=== PATIENT | female | born 1995 | race Caucasian/White ===

== ENCOUNTER 2017-03-03 00:39 | Emergency (ER) | payer OTHER, MEDICAID ==
[2017-03-03] MEDS ORDERED: NORMAL SALINE 1000 ML 1,000 ML IV PRN ×2 (00:48→02:33)
--- NOTE | 2017-03-03 00:50 | ER Document Report ---
ED Seizure - General Stated Complaint: PROBABLE SEIZURE Time seen by provider: 00:50 Mode of Arrival: Medic Information source: Parent - Mother, Emergency Med Personnel - HPI Patient complains to provider of: History of seizures Number of episodes: 1 Time of onset: unknown Duration: unknown Can details of seizure be obtained/verified: Yes Episode witnessed (by whom): Yes - mother, EMS Preceding symptoms/context: Missed dose of meds History of: V/P shunt, Other - Hyperthyroidism/thyrotoxicosis Character of seizure: Complete loss/conscious, Generalized shaking Post-ictal symptoms: Confusion, Speech difficulty Injuries: None Treatment ASSOCIATE SALES MANAGER: Valium Notes: Patient is a 21-year-old female with a history of cerebral palsy, seizure disorder, hypothyroidism with previous thyrotoxicosis, she was recently seen by her plastic extrusion operator and because her thyroid levels were showing her to be quite hypothyroid she was advised to stop taking her methimazole for approximately one week and then restarted at a much lower dose than she was previously on, today would be the day that she was to restart it, and she did take one 10 mg dose right before bedtime, mother last noted her to be acting normally at 9 PM, otherwise she's had a mild cough, no fevers, no vomiting or diarrhea, no other signs of any illness, at approximately 1145, mother states she heard a strange noise coming from patient's room and went into check on her, mother found her lying on the floor actively seizing, when EMS arrived to the house she was still actively seizing, they administered 4 mg of Versed and 4 mg of Valium and brought patient to the emergency room for evaluation, on arrival she was no longer seizing - Related Data Allergies/Adverse Reactions: No Known Allergies Allergy (Verified 02/20/15 03:40) Past Medical History - General Information source: Parent - Social History Smoking Status: Never Smoker Family History: Reviewed & Not Pertinent Neurological Medical History: Reports: Hx Seizures - Last seizure was in 2005 when she had a shunt revision Musculoskeltal Medical History: Reports Hx Muscle Spasm Past Surgical History: Reports: Hx Abdominal Surgery - bowl resection, Hx Bowel Surgery - Bowel resection for necrotizing enterocolitis, Hx Neurologic Surgery - 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, Hx Vascular Surgery - AV shunt with revision in - Immunizations Immunizations up to date: Yes Hx Diphtheria, Pertussis, Tetanus Vaccination: Yes Review of Systems - Review of Systems Constitutional: No symptoms reported EENT: No symptoms reported Cardiovascular: No symptoms reported Respiratory: Cough Gastrointestinal: No symptoms reported Genitourinary: No symptoms reported Female Genitourinary: No symptoms reported Musculoskeletal: No symptoms reported Skin: No symptoms reported Hematologic/Lymphatic: No symptoms reported Neurological/Psychological: Seizure -: Yes All other systems reviewed and negative Physical Exam - Vital signs Vitals: Temp 100.6 F H 03/03/17 00:40 Interpretation: Tachycardic, Febrile - General General appearance: Lethargic In distress: Moderate - HEENT Head: Normocephalic, Atraumatic Eyes: Normal Conjunctiva: Injected Eyelashes: Normal Pupils: PERRL Mucous membranes: Dry Pharynx: Normal Neck: Normal - Respiratory Respiratory status: No respiratory distress Chest status: Nontender Breath sounds: Normal Chest palpation: Normal - Cardiovascular Rhythm: Regular, Tachycardia Heart sounds: Normal auscultation Murmur: No - Abdominal Inspection: Normal, Healed incision Distension: Distended - Mild Bowel sounds: Normal Tenderness: Nontender Organomegaly: No organomegaly - Back Back: Normal - Extremities General upper extremity: Normal inspection, Nontender, Normal color, Normal ROM , Normal temperature General lower extremity: Normal inspection, Nontender, Normal color, Normal ROM , Normal temperature. No: Dorothy's sign - Neurological Neuro grossly intact: Yes Cognition: Confused Yolanda Coma Scale Eye Opening: To Voice [place] Coma Scale Verbal: Incomprehensible Yolanda Coma Scale Motor: Withdraws to Pain Yolanda Coma Scale Total: 9 - Skin Skin Temperature: Warm Skin Moisture: Dry Skin Color: Pale Course - Re-evaluation Re-evalutation: 03/03/17 02:52 Patient with evidence of thyrotoxicosis/possible thyroid storm, [facility] a request was made to speak to the on-call plastic extrusion operator 03:[address] Darling, who is familiar with patient, he does report that her recent labs showed her to be hypothyroid and he did recommend for her to stop taking the methimazole for 1 week, I did review patient's symptoms, presentation as well as lab values, he agrees that patient appears to be in thyroid storm and warrants transfer to [facility] for admission, he further recommends she receive another dose of 20 mg of methimazole, agrees with 0.5 mg of propanolol at this point in time, as well as every 4-6 hour dosing of propanolol as needed until transfer can be made, transfer center stated they will have the hospitalist callback to accept patient, Dr. Darling recommends against giving steroids at this point in time 03:45 Patient was discussed with [facility] hospitalist, Dr. Constantino, who accepts patient for transfer to PCU, transfer center reports they will call back when a bed is available - Vital Signs Vital signs: Temp Pulse Resp BP Pulse Ox 100.6 F H 42 H 108/70 92 03/03/17 00:40 03/03/17 04:31 03/03/17 04:31 03/03/17 04:31 - Laboratory Result Diagrams: 03/03/17 00:48 03/03/17 00:48 Laboratory results interpreted by me: 03/03/17 03/03/17 03/03/17 00:44 00:48 00:48 Sodium 147.7 H Potassium 3.4 L Chloride 108 H Creatinine 0.50 L Glucose 112 H POC Glucose 119 H AST 75 H ALT 45 H TSH < 0.02 L Free T3 pg/mL > 22.80 H - EKG Interpretation by Me EKG shows normal: Sinus rhythm Rate: Tachycardia Critical Care Note - Critical Care Note Total time excluding time spent on procedures (mins): 90 Comments: Patient arrived postictal, tachycardic, minimally responsive, requiring immediate intervention, evaluation shows patient to be in thyroid storm, with persistent tachycardia, requiring consultation with plastic extrusion operator and transfer to tertiary care center Discharge - Discharge Clinical Impression: Thyrotoxicosis with thyrotoxic crisis Qualifiers: Thyrotoxicosis type: unspecified thyrotoxicosis type Qualified Code(s): E05.91 - Thyrotoxicosis, unspecified with thyrotoxic crisis or storm Condition: Serious Disposition: [facility]
[2017-03-03 01:07] LABS: ABSOLUTE MONOCYTES (AUTO) 0.9 10^3/uL (0.1-1.4); ABSOLUTE NEUT (AUTO) 5.9 10^3/uL (1.7-8.2); BASOPHILS % (AUTO) 0.3 % (0-2); EOSINOPHILS % (AUTO) 0.2 % (0-6); HEMATOCRIT 39.9 % (36.0-47.0); HEMOGLOBIN 13.5 g/dL (12.0-15.5); HGB HCT DIFFERENCE 0.6; LYMPHOCYTES % (AUTO) 30.8 % (13-45); MEAN CORPUSCULAR HEMOGLOBIN 29.1 pg (27.0-33.4); MEAN CORPUSCULAR HGB CONC 33.8 g/dL (32.0-36.0); MEAN CORPUSCULAR VOLUME 86 fl (80-97); RED BLOOD COUNT 4.64 10^6/uL (3.72-5.28); RED CELL DISTRIBUTION WIDTH 13.6 % (11.5-14.0); SEGMENTED NEUTROPHILS % (AUTO) 59.7 % (42-78); WHITE BLOOD COUNT 9.9 10^3/uL (4.0-10.5)
[2017-03-03 01:20] LABS: BLOOD UREA NITROGEN 15 mg/dL (7-20); CARBON DIOXIDE 24 mmol/L (22-30); CHLORIDE 108 mmol/L (98-107); GLUCOSE 112 mg/dL (75-110); POTASSIUM 3.4 mmol/L (3.6-5.0); SODIUM 147.7 mmol/L (137-145)
[2017-03-03 01:21] LABS: ALANINE AMINOTRANSFERASE 45 U/L (5-35); ALBUMIN 4.1 g/dL (3.7-5.6); ALKALINE PHOSPHATASE 79 U/L (50-135); ANION GAP 16 (5-19); ASPARTATE AMINO TRANSFERASE 75 U/L (5-30); BILIRUBIN,DIRECT 0.3 mg/dL (0.0-0.4); BILIRUBIN,TOTAL 0.5 mg/dL (0.2-1.3); MAGNESIUM 1.7 mg/dL (1.6-2.3); TOTAL PROTEIN 6.9 g/dL (6.3-8.2)
[2017-03-03] MEDS ORDERED: AZITHROMYCIN INJ 500 MG VIAL IV ONE (02:23)
[2017-03-03 02:35] LABS: FREE T3 > 22.80 pg/mL (2.77-5.27); THYROID STIMULATING HORMONE < 0.02 uIU/mL (0.47-4.68)
[2017-03-03] MEDS ORDERED: PROPRANOLOL HCL INJ/PF 1 MG/1 ML SDV IV PRN (03:16)
[2017-03-03] MEDS ORDERED: METHIMAZOLE 5 MG TABLET PO ONE (03:42)
[2017-03-03] MEDS: PROPRANOLOL HCL INJ/PF 1 MG/1 ML SDV IV SCH ×2 (06:34→10:04)
--- NOTE | 2017-03-03 09:46 | EKG REPORT ---
SEVERITY:- OTHERWISE NORMAL ECG - SINUS TACHYCARDIA : Confirmed by: Baljinder Herndon 03-Mar-2017 09:45:12
--- NOTE | 2017-03-03 11:45 | ER Document Report ---
Doctor's Note Notes: 03/03/17 11:45 Patient's heart rate and blood pressure did remain abnormal however stable since the patient's visit here in ER. Patient is alert and oriented stable for transfer.
[2017-03-03 11:46] VITALS: BP 116/80
== END 2017-03-03 12:03 | disposition short-term general hospital (02) ==
LOC: ER 00:39
DX: E05.91 Thyrotoxicosis, unspecified with thyrotoxic crisis or storm (principal); G80.9 Cerebral palsy, unspecified; G40.909 Epilepsy, unspecified, not intractable, without status epilepticus
CPT/HCPCS: 93005; 96376; 99291; 99292; 96361; 96375; 96365; 36415; 87040; 84439; 82962; 83735; 84443; 84703; 85025; 80053; 84481; 71010; 93010; J1800; J7030; J0456

== ENCOUNTER 2017-05-17 00:40 | Emergency (ER) | payer OTHER, MEDICAID ==
[2017-05-17] MEDS ORDERED: ACETAMINOPHEN 325 MG TABLET ONE (01:08)
[2017-05-17] MEDS ORDERED: NORMAL SALINE 1000 ML 1,000 ML IV ONE (01:34)
[2017-05-17 01:35] LABS: ABSOLUTE LYMPHOCYTES (AUTO) 2.8 10^3/uL (0.5-4.7); ABSOLUTE MONOCYTES (AUTO) 0.7 10^3/uL (0.1-1.4); ABSOLUTE NEUT (AUTO) 4.1 10^3/uL (1.7-8.2); BASOPHILS % (AUTO) 0.3 % (0-2); HEMATOCRIT 38.1 % (36.0-47.0); HEMOGLOBIN 12.6 g/dL (12.0-15.5); HGB HCT DIFFERENCE -0.3; LYMPHOCYTES % (AUTO) 36.7 % (13-45); MEAN CORPUSCULAR HEMOGLOBIN 27.8 pg (27.0-33.4); MEAN CORPUSCULAR HGB CONC 33.2 g/dL (32.0-36.0); MEAN CORPUSCULAR VOLUME 84 fl (80-97); MONOCYTES % (AUTO) 9.6 % (3-13); RED BLOOD COUNT 4.55 10^6/uL (3.72-5.28); RED CELL DISTRIBUTION WIDTH 13.4 % (11.5-14.0); SEGMENTED NEUTROPHILS % (AUTO) 53.4 % (42-78); WHITE BLOOD COUNT 7.6 10^3/uL (4.0-10.5)
--- NOTE | 2017-05-17 01:54 | ER Document Report ---
ED Seizure - General Chief Complaint: Probable Seizure Stated Complaint: POSSIBLE SEIZURE Time Seen by Provider: 05/17/17 01:34 Notes: The patient is a 21-year-old female, past medical history seizure disorder, cerebral palsy, hyperthyroidism, presents after a witnessed 3 minute generalized tonic-clonic seizure that resolved without any intervention. Mom said that she has not missed any of her seizure medications and that the patient has been outside all week surfing and that she may be dehydrated. She follows at [facility] neurology. Patient is awake and has no symptoms at this time other than a mild headache. She denies fevers, neck stiffness, numbness, tingling, new neuro symptoms, chest pain, shortness of breath or urinary symptoms. - Related Data Allergies/Adverse Reactions: No Known Allergies Allergy (Verified 02/20/15 03:40) Past Medical History - General Information source: Patient, Parent - Social History Smoking Status: Never Smoker Frequency of alcohol use: None Drug Abuse: None Family History: Reviewed & Not Pertinent Neurological Medical History: Reports: Hx Seizures - Last seizure was in 2005 when she had a shunt revision Musculoskeltal Medical History: Reports Hx Muscle Spasm Past Surgical History: Reports: Hx Abdominal Surgery - bowl resection, Hx Bowel Surgery - Bowel resection for necrotizing enterocolitis, Hx Neurologic Surgery - 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 RESPIRATORY: -cough, -SOB GASTROINTESTINAL: -abdominal pain, - nausea, -vomiting, -diarrhea GENITOURINARY: -dysuria, -hematuria MUSCULOSKELETAL: -back pain, -neck pain SKIN: -rash or skin lesions. HEMATOLOGIC: -easy bruising or bleeding. LYMPHATIC: -swollen, enlarged glands. NEUROLOGICAL: +seizure activity, +headache PSYCHIATRIC: -anxiety, -depression. ALL OTHER SYSTEMS REVIEWED AND NEGATIVE. Physical Exam - Vital signs Vitals: Temp Pulse Resp BP Pulse Ox 98.5 F 112 H 16 122/76 97 05/17/17 00:44 05/17/17 00:44 05/17/17 00:44 05/17/17 00:44 05/17/17 00:44 - Notes Notes: PHYSICAL EXAMINATION: GENERAL: Well-appearing, well-nourished and in no acute distress. HEAD: Atraumatic, normocephalic. EYES: Pupils equal round and reactive to light, extraocular movements intact, sclera anicteric, conjunctiva are normal. ENT: nares patent, oropharynx clear without exudates. Moist mucous membranes. NECK: Normal range of motion, supple without lymphadenopathy LUNGS: Breath sounds clear to auscultation bilaterally and equal. No wheezes rales or rhonchi. HEART: Tachycardia ABDOMEN: Soft, nontender, normoactive bowel sounds. No guarding, no rebound. No masses appreciated. EXTREMITIES: Chronic left arm weakness, no pitting or edema. No cyanosis. NEUROLOGICAL: Cranial nerves grossly intact. Normal speech, normal gait. Normal sensory and motor exams. PSYCH: Normal mood, normal affect. SKIN: Warm, Dry, normal turgor, no rashes or lesions noted. Course - Re-evaluation Re-evalutation: Patient feels much better and her headache has resolved after Tylenol and fluids. Her heart rate has decreased down to 98. Labs are unremarkable and mom said that her thyroid studies are at baseline for her. She is following with endocrinology and [facility] neurology for her issues. No signs of meningitis at this time. Instructed her to follow-up for further evaluation and treatment. - Vital Signs Vital signs: Temp Pulse Resp BP Pulse Ox 98.5 F 112 H 17 120/80 98 05/17/17 00:44 05/17/17 00:44 05/17/17 02:01 05/17/17 02:00 05/17/17 02:01 - Laboratory Result Diagrams: 05/17/17 01:17 05/17/17 01:17 Laboratory results interpreted by me: 05/17/17 05/17/17 05/17/17 01:17 01:17 01:17 Sodium 136.5 L Creatinine 0.48 L Albumin 3.6 L TSH < 0.02 L Free T4 0.63 L Free T3 pg/mL 10.60 H Discharge - Discharge Clinical Impression: Recurrent seizures Condition: Stable Disposition: HOME, SELF-CARE Additional Instructions: Seizure, Known Epileptic You have had a seizure. Seizures may "break through" in an epileptic due to stress of infection or injury, a change in blood chemistry, or drug and alcohol use. Another common cause is failure to take medication as prescribed. Your doctor has evaluated your situation for the likely cause of this seizure. It is important that you follow his advice concerning any medication changes and follow-up care. Further testing of anti-seizure medication levels in your blood may be necessary. If you have a mobile lounge driver or operator's license, it's important that you DO NOT DRIVE until given permission by your physician. This seizure must be reported to the mobile lounge driver or operator 's license bureau. Call the doctor or return if seizures recur, or if new or unusual symptoms arise -- such as severe headache, confusion, excessive sleepiness, local weakness or numbness, neck stiffness, or fever. Referrals: RICHARDSON YOUNGBLOOD MD [ACTIVE STAFF] - Follow up as needed
[2017-05-17 01:56] LABS: ALANINE AMINOTRANSFERASE 32 U/L (5-35); ALBUMIN 3.6 g/dL (3.7-5.6); ALCOHOL < 10 mg/dL (NONE DETECTED); ALKALINE PHOSPHATASE 70 U/L (50-135); ANION GAP 9 (5-19); ASPARTATE AMINO TRANSFERASE 23 U/L (5-30); BILIRUBIN,DIRECT 0.3 mg/dL (0.0-0.4); BILIRUBIN,TOTAL 0.4 mg/dL (0.2-1.3); BLOOD UREA NITROGEN 11 mg/dL (7-20); CARBON DIOXIDE 24 mmol/L (22-30); CHLORIDE 104 mmol/L (98-107); CREATININE RESULT 0.48 mg/dL (0.52-1.25); GLUCOSE 93 mg/dL (75-110); MAGNESIUM 1.8 mg/dL (1.6-2.3); SODIUM 136.5 mmol/L (137-145); TOTAL PROTEIN 6.4 g/dL (6.3-8.2)
[2017-05-17 02:24] LABS: FREE T3 10.6 pg/mL (2.77-5.27)
[2017-05-17 04:46] VITALS: BP 124/74
== END 2017-05-17 04:46 | disposition home or self-care (01) ==
LOC: ER 00:40
DX: G40.909 Epilepsy, unspecified, not intractable, without status epilepticus (principal); G80.9 Cerebral palsy, unspecified; E05.90 Thyrotoxicosis, unspecified without thyrotoxic crisis or storm; R51 Headache
CPT/HCPCS: 99284; 96360; 36415; 84439; 82962; 80307; 83735; 84443; 85025; 80053; 84481; J7030

== ENCOUNTER 2017-06-06 11:48 | Emergency (ER) | payer OTHER, MEDICAID ==
[2017-06-06 12:52] LABS: ABSOLUTE LYMPHOCYTES (AUTO) 1.8 10^3/uL (0.5-4.7); ABSOLUTE MONOCYTES (AUTO) 0.7 10^3/uL (0.1-1.4); ABSOLUTE NEUT (AUTO) 5.8 10^3/uL (1.7-8.2); ALANINE AMINOTRANSFERASE 25 U/L (5-35); ALBUMIN 3.7 g/dL (3.7-5.6); ALKALINE PHOSPHATASE 69 U/L (50-135); ANION GAP 10 (5-19); ASPARTATE AMINO TRANSFERASE 19 U/L (5-30); BASOPHILS % (AUTO) 0.2 % (0-2); BILIRUBIN,DIRECT 0.3 mg/dL (0.0-0.4); BILIRUBIN,TOTAL 0.4 mg/dL (0.2-1.3); BLOOD UREA NITROGEN 9 mg/dL (7-20); CALCIUM 8.8 mg/dL (8.4-10.2); CARBON DIOXIDE 25 mmol/L (22-30); CHLORIDE 104 mmol/L (98-107); CREATININE RESULT 0.43 mg/dL (0.52-1.25); GLUCOSE 90 mg/dL (75-110); HEMATOCRIT 39.7 % (36.0-47.0); HEMOGLOBIN 13.5 g/dL (12.0-15.5); HGB HCT DIFFERENCE 0.8; LYMPHOCYTES % (AUTO) 21.3 % (13-45); MAGNESIUM 1.7 mg/dL (1.6-2.3); MEAN CORPUSCULAR HEMOGLOBIN 28.2 pg (27.0-33.4); MEAN CORPUSCULAR HGB CONC 33.9 g/dL (32.0-36.0); MEAN CORPUSCULAR VOLUME 83 fl (80-97); MONOCYTES % (AUTO) 8.5 % (3-13); POTASSIUM 4.4 mmol/L (3.6-5.0); RED BLOOD COUNT 4.77 10^6/uL (3.72-5.28); RED CELL DISTRIBUTION WIDTH 13.2 % (11.5-14.0); SODIUM 139.2 mmol/L (137-145); TOTAL PROTEIN 6.6 g/dL (6.3-8.2); WHITE BLOOD COUNT 8.3 10^3/uL (4.0-10.5)
[2017-06-06] MEDS ORDERED: NORMAL SALINE 1000 ML 1,000 ML IV PRN (12:57)
[2017-06-06 12:58] LABS: ALCOHOL < 10 mg/dL (NONE DETECTED)
--- NOTE | 2017-06-06 13:50 | RADIOLOGY REPORT (SQ) ---
EXAM DESCRIPTION: CHEST SINGLE VIEW COMPLETED DATE/TIME: 06/06/2017 1:40 pm REASON FOR STUDY: wheezing COMPARISON: 03/03/2017 EXAM PARAMETERS: NUMBER OF VIEWS: One view. TECHNIQUE: Single frontal radiographic view of the chest acquired. RADIATION DOSE: NA LIMITATIONS: None. FINDINGS: LUNGS AND PLEURA: No opacities, masses or pneumothorax. No pleural effusion. MEDIASTINUM AND HILAR STRUCTURES: No masses. Contour normal. HEART AND VASCULAR STRUCTURES: Heart normal in size. Normal vasculature. BONES: No acute findings. HARDWARE: Right IJ central venous catheter with tip in the proximal SVC. OTHER: EKG leads overlie the chest. IMPRESSION: NO ACUTE RADIOGRAPHIC FINDING IN THE CHEST. TECHNICAL DOCUMENTATION: JOB ID: [id number]
--- NOTE | 2017-06-06 14:15 | ER Document Report ---
ED General - General Chief Complaint: Probable Seizure Stated Complaint: POSSIBLE SEIZURE Time Seen by Provider: 06/06/17 11:56 Mode of Arrival: Medic Information source: Patient, Parent Notes: 21-year-old female history of hypothyroidism, seizure disorder thyroid storm presents after a seizure. Mother notes this is a similar seizure to her previous seizures. Denies any fevers or chills denies any nausea vomiting or diarrhea TRAVEL OUTSIDE OF THE [place] IN LAST 30 DAYS: No - HPI Onset: Just prior to arrival Onset/Duration: Sudden Quality of pain: Achy Severity: Mild Pain Level: Denies Associated symptoms: Other Exacerbated by: Denies Relieved by: Denies Similar symptoms previously: Yes Recently seen / treated by doctor: Yes - Related Data Allergies/Adverse Reactions: No Known Allergies Allergy (Verified 06/06/17 12:19) Home Medications: Current Home Medications Methimazole [Tapazole] 17.5 mg PO DAILY 06/06/17 [History] Oxcarbazepine [Oxtellar Xr] 1,800 mg PO DAILY 06/06/17 [History] Past Medical History - Social History Smoking Status: Never Smoker Cigarette use (# per day): No Chew tobacco use (# tins/day): No Smoking Education Provided: No Frequency of alcohol use: None Drug Abuse: None Family History: Reviewed & Not Pertinent Neurological Medical History: Reports: Hx Seizures - Last seizure was in 2005 when she had a shunt revision Musculoskeltal Medical History: Reports Hx Muscle Spasm Past Surgical History: Reports: Hx Abdominal Surgery - bowl resection, Hx Bowel Surgery - Bowel resection for necrotizing enterocolitis, Hx Neurologic Surgery - 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 Denies recent illness. EENT: Denies eye, ear, throat, or mouth pain or symptoms. Denies nasal or sinus congestion or discharge. Denies throat, tongue, or mouth swelling or difficulty swallowing. CARDIOVASCULAR: Denies chest pain. Denies palpitations or racing or irregular heart beat. Denies ankle edema. RESPIRATORY: Denies cough, cold, or chest congestion. Denies shortness of breath, difficulty breathing, or wheezing. GASTROINTESTINAL: Denies abdominal pain or distention. Denies nausea, vomiting , or diarrhea. Denies blood in vomitus, stools, or per rectum. Denies black, tarry stools. Denies constipation. GENITOURINARY: Denies difficulty urinating, painful urination, burning, frequency, blood in urine, or discharge. FEMALE GENITOURINARY: Denies vaginal bleeding, heavy or abnormal periods, irregular periods. Denies vaginal discharge or odor. MUSCULOSKELETAL: Denies back or neck pain or stiffness. Denies joint pain or swelling. SKIN: Denies rash, lesions or sores. HEMATOLOGIC : Denies easy bruising or bleeding. LYMPHATIC: Denies swollen, enlarged glands. NEUROLOGICAL: Admits to seizure disorder PSYCHIATRIC: Denies anxiety or stress. Denies depression, suicidal ideation, or homicidal ideation. ALL OTHER SYSTEMS REVIEWED AND NEGATIVE. PHYSICAL EXAMINATION: GENERAL: Well-appearing, well-nourished and in no acute distress. HEAD: Atraumatic, normocephalic. EYES: Pupils equal round and reactive to light, extraocular movements intact, conjunctiva are normal. ENT: Nares patent, oropharynx clear without exudates. Moist mucous membranes. NECK: Normal range of motion, supple without lymphadenopathy LUNGS: Breath sounds clear to auscultation bilaterally and equal. No wheezes rales or rhonchi. HEART: Tachycardic ABDOMEN: Soft, nontender, nondistended abdomen. No guarding, no rebound. No masses appreciated. Female : deferred Musculoskeletal: Normal range of motion, no pitting or edema. No cyanosis. NEUROLOGICAL: Postictal PSYCH: Normal mood, normal affect. SKIN: Warm, Dry, normal turgor, no rashes or lesions noted. Dictation was performed using [employer] voice recognition software Physical Exam - Vital signs Vitals: Temp Resp Pulse Ox 99.1 F 16 93 06/06/17 11:50 06/06/17 11:50 06/06/17 11:50 Course - Re-evaluation Re-evalutation: 06/06/17 14:15 methimazole 17.5 mg increased 2 weeks ago 06/06/17 15:06 Patient is noted to be tachycardic, TSH is noted to be less than 0.02 06/06/17 15:51 T3 is elevated mother requests I speak with Dr Phong pearce, paged 06/06/17 16:14 Dr Darling notes that while these numbers propanolol 160mg capsule once daily , extended release Mother is very happy with this plan After performing a Medical Screening Examination, I estimate there is LOW risk for INTRACRANIAL HEMORRHAGE, ISCHEMIC CVA, MALIGNANT DYSRHYTHMIA, ACUTE CORONARY SYNDROME, MENINGITIS, PULMONARY EMBOLISM, or SEPSIS thus I consider the discharge disposition reasonable. I have reevaluated this patient multiple times and no significant life threatening changes are noted. The patient mother and I have discussed the diagnosis and risks, and we agree with discharging home with close follow-up with the understanding that symptoms and presentations can change. We also discussed returning to the Emergency Department immediately if new or worsening symptoms occur. We have discussed the symptoms which are most concerning (e.g., changing or worsening pain, weakness, vomiting, fever) that necessitate immediate return. - Vital Signs Vital signs: Temp Pulse Resp BP Pulse Ox 99.1 F 22 114/67 96 06/06/17 11:50 06/06/17 15:01 06/06/17 15:00 06/06/17 15:01 - Laboratory Result Diagrams: 06/06/17 12:10 06/06/17 12:10 Laboratory results interpreted by me: 06/06/17 06/06/17 06/06/17 12:10 12:10 14:30 Creatinine 0.43 L TSH < 0.02 L Free T3 pg/mL Ur Leukocyte Esterase SMALL H 06/06/17 14:45 Creatinine TSH Free T3 pg/mL 13.40 H Ur Leukocyte Esterase Discharge - Discharge Clinical Impression: Hyperthyroidism, Seizure, Tachycardia Condition: Stable Disposition: HOME, SELF-CARE Instructions: Thyroid Hormone ([facility]) Prescriptions: Propranolol HCl [Propranolol HCl ER] 160 mg PO DAILY #30 cap.sa.24h Referrals: SORAYA DARLING MD [NO LOCAL MD] - Follow up tomorrow
[2017-06-06 14:49] LABS: APPEARANCE,URINE CLEAR; BILIRUBIN,URINE NEGATIVE (NEGATIVE); GLUCOSE, URINE NEGATIVE (NEGATIVE); KETONES,URINE NEGATIVE (NEGATIVE); LEUKOCYTE ESTERASE,URINE SMALL (NEGATIVE); NITRITE,URINE NEGATIVE (NEGATIVE); PROTEIN,URINE NEGATIVE (NEGATIVE); URINE SPECIFIC GRAVITY 1.013; UROBILINOGEN,URINE NEGATIVE mg/dL (<2.0)
[2017-06-06 15:10] LABS: URINE BARBITURATES SCREEN NEGATIVE; URINE METHADONE SCREEN NEGATIVE; URINE OPIATES LOW NEGATIVE; URINE PHENCYCLIDINE SCREEN NEGATIVE
[2017-06-06 15:38] LABS: FREE T3 13.4 pg/mL (2.77-5.27)
[2017-06-06 17:05] VITALS: BP 112/79
== END 2017-06-06 17:18 | disposition home or self-care (01) ==
LOC: ER 11:48
DX: G40.909 Epilepsy, unspecified, not intractable, without status epilepticus (principal); E05.90 Thyrotoxicosis, unspecified without thyrotoxic crisis or storm; R00.0 Tachycardia, unspecified; Z79.899 Other long term (current) drug therapy; Z98.2 Presence of cerebrospinal fluid drainage device
CPT/HCPCS: 99284; 96360; 36415; 84439; 80307 ×2; 83735; 84443; 84703; 85025; 80053; 81001; 84481; 71010; J7030

== ENCOUNTER 2017-08-07 00:39 | Emergency (ER) | payer OTHER, MEDICAID ==
[2017-08-07] MEDS ORDERED: NORMAL SALINE 1000 ML 1,000 ML IV ONE (01:09)
--- NOTE | 2017-08-07 01:14 | ER Document Report ---
ED Seizure - General Chief Complaint: Seizure Stated Complaint: POSSIBLE SEIZURE Time Seen by Provider: 08/07/17 00:55 Notes: The patient is a 21-year-old female, past medical history seizure disorder, cerebral palsy, hyperthyroidism with a history of thyroid storm 5 months ago, presents after she had her usual seizure activity where she has left facial twitching, left arm and leg twitching that lasted about 5 minutes. It resolved without any intervention. She took her seizure medications and methimazole as directed and has not missed any doses. Patient usually has seizures when she is dehydrated. Her blood sugar by EMS was 123. She is currently asymptomatic and denies acute focal abnormalities, numbness, tingling, nausea, vomiting, blurry vision, chest pain, shortness of breath or back pain. - Related Data Allergies/Adverse Reactions: No Known Allergies Allergy (Verified 06/06/17 12:19) Past Medical History - General Information source: Patient, Parent - Social History Smoking Status: Unknown if Ever Smoked Family History: Reviewed & Not Pertinent Neurological Medical History: Reports: Hx Seizures - Last seizure was in 2005 when she had a shunt revision Musculoskeltal Medical History: Reports Hx Muscle Spasm Past Surgical History: Reports: Hx Abdominal Surgery - bowl resection, Hx Bowel Surgery - Bowel resection for necrotizing enterocolitis, Hx Neurologic Surgery - ADMINISTRATIVE ASSISTANT FRONT DESK shunt with 2 revisions, Hx Vascular Surgery - AV shunt with revision in - Immunizations Immunizations up to date: Yes Hx Diphtheria, Pertussis, Tetanus Vaccination: Yes Review of Systems - Review of Systems Notes: REVIEW OF SYSTEMS: CONSTITUTIONAL: -fevers, -chills EENT: -eye pain, -difficulty swallowing, -nasal congestion CARDIOVASCULAR:-chest pain, -syncope. RESPIRATORY: -cough, -SOB GASTROINTESTINAL: -abdominal pain, - nausea, -vomiting, -diarrhea GENITOURINARY: -dysuria, -hematuria MUSCULOSKELETAL: -back pain, -neck pain SKIN: -rash or skin lesions. HEMATOLOGIC: -easy bruising or bleeding. LYMPHATIC: -swollen, enlarged glands. NEUROLOGICAL: -altered mental status or loss of consciousness, -headache, + seizures PSYCHIATRIC: -anxiety, -depression. ALL OTHER SYSTEMS REVIEWED AND NEGATIVE. Physical Exam - Vital signs Vitals: Temp Pulse Resp BP Pulse Ox 97.5 F 94 H 20 121/56 L 96 08/07/17 00:49 08/07/17 00:49 08/07/17 00:49 10/03/17 00:49 08/07/17 00:49 - Notes Notes: PHYSICAL EXAMINATION: GENERAL: Well-appearing, well-nourished and in no acute distress. HEAD: Atraumatic, normocephalic. EYES: Pupils equal round and reactive to light, extraocular movements intact, sclera anicteric, conjunctiva are normal. ENT: nares patent, oropharynx clear without exudates. Moist mucous membranes. NECK: Normal range of motion, supple without lymphadenopathy LUNGS: Breath sounds clear to auscultation bilaterally and equal. No wheezes rales or rhonchi. HEART: Regular rate and rhythm without murmurs ABDOMEN: Soft, nontender, normoactive bowel sounds. No guarding, no rebound. No masses appreciated. EXTREMITIES: Normal range of motion, no pitting or edema. No cyanosis. NEUROLOGICAL: 3/5 strength in LUE and LLE (baseline for patient) PSYCH: Normal mood, normal affect. SKIN: Warm, Dry, normal turgor, no rashes or lesions noted. Course - Re-evaluation Re-evalutation: Patient appears very well and she is back to baseline. She is taking her medications as prescribed. Blood work is unremarkable and thyroid tests have improved from prior results. She takes propranolol and methimazole for her hyperthyroidism and she appears to not be in thyroid storm at this time. Will discharge patient home with follow-up at her neurologist and fiberglass roller as already scheduled this week. - Vital Signs Vital signs: Temp Pulse Resp BP Pulse Ox 97.5 F 94 H 20 121/56 L 96 08/07/17 00:49 08/07/17 00:49 08/07/17 00:49 08/07/17 00:49 08/07/17 00:49 - Laboratory Result Diagrams: 08/07/17 01:52 08/07/17 01:52 Laboratory results interpreted by me: 08/07/17 08/07/17 01:52 01:52 Creatinine 0.42 L Direct Bilirubin 0.5 H TSH < 0.01 L Free T4 0.58 L Free T3 pg/mL 8.28 H Discharge - Discharge Clinical Impression: Seizure-like activity Condition: Stable Disposition: HOME, SELF-CARE Additional Instructions: Seizure, Known Epileptic You have had a seizure. Seizures may "break through" in an epileptic due to stress of infection or injury, a change in blood chemistry, or drug and alcohol use. Another common cause is failure to take medication as prescribed. Your doctor has evaluated your situation for the likely cause of this seizure. It is important that you follow his advice concerning any medication changes and follow-up care. Further testing of anti-seizure medication levels in your blood may be necessary. If you have a stunt driver's license, it's important that you DO NOT DRIVE until given permission by your physician. This seizure must be reported to the stunt driver 's license bureau. Call the doctor or return if seizures recur, or if new or unusual symptoms arise -- such as severe headache, confusion, excessive sleepiness, local weakness or numbness, neck stiffness, or fever. Referrals: RICHARDSON YOUNGBLOOD MD [ACTIVE STAFF] - Follow up as needed
[2017-08-07 02:05] LABS: ABSOLUTE LYMPHOCYTES (AUTO) 2.9 10^3/uL (0.5-4.7); ABSOLUTE MONOCYTES (AUTO) 0.7 10^3/uL (0.1-1.4); ABSOLUTE NEUT (AUTO) 4.1 10^3/uL (1.7-8.2); BASOPHILS % (AUTO) 0.2 % (0-2); EOSINOPHILS % (AUTO) 0.1 % (0-6); HEMATOCRIT 38.5 % (36.0-47.0); HEMOGLOBIN 13.6 g/dL (12.0-15.5); HGB HCT DIFFERENCE 2.3; LYMPHOCYTES % (AUTO) 37.2 % (13-45); MEAN CORPUSCULAR HEMOGLOBIN 28.4 pg (27.0-33.4); MEAN CORPUSCULAR HGB CONC 35.3 g/dL (32.0-36.0); MEAN CORPUSCULAR VOLUME 80 fl (80-97); MONOCYTES % (AUTO) 8.9 % (3-13); RED BLOOD COUNT 4.79 10^6/uL (3.72-5.28); RED CELL DISTRIBUTION WIDTH 13.3 % (11.5-14.0); SEGMENTED NEUTROPHILS % (AUTO) 53.6 % (42-78); WHITE BLOOD COUNT 7.7 10^3/uL (4.0-10.5)
[2017-08-07 02:23] LABS: ALANINE AMINOTRANSFERASE 31 U/L (5-35); ALBUMIN 3.9 g/dL (3.7-5.6); ALKALINE PHOSPHATASE 65 U/L (50-135); ANION GAP 8 (5-19); ASPARTATE AMINO TRANSFERASE 24 U/L (5-30); BILIRUBIN,DIRECT 0.5 mg/dL (0.0-0.4); BILIRUBIN,TOTAL 0.5 mg/dL (0.2-1.3); BLOOD UREA NITROGEN 14 mg/dL (7-20); CALCIUM 9.6 mg/dL (8.4-10.2); CARBON DIOXIDE 25 mmol/L (22-30); CHLORIDE 107 mmol/L (98-107); CREATININE RESULT 0.42 mg/dL (0.52-1.25); GLUCOSE 98 mg/dL (75-110); POTASSIUM 4.6 mmol/L (3.6-5.0); SODIUM 140.4 mmol/L (137-145); TOTAL PROTEIN 6.5 g/dL (6.3-8.2)
[2017-08-07 02:50] LABS: FREE T3 8.28 pg/mL (2.77-5.27)
[2017-08-07 03:04] LABS: THYROID STIMULATING HORMONE < 0.01 uIU/mL (0.47-4.68)
[2017-08-07 04:05] VITALS: BP 119/63
== END 2017-08-07 03:55 | disposition home or self-care (01) ==
LOC: ER 00:39
DX: R25.3 Fasciculation (principal); G80.9 Cerebral palsy, unspecified; E05.90 Thyrotoxicosis, unspecified without thyrotoxic crisis or storm; G40.909 Epilepsy, unspecified, not intractable, without status epilepticus; Z79.899 Other long term (current) drug therapy; Z98.2 Presence of cerebrospinal fluid drainage device
CPT/HCPCS: 36415; 80053; 84439; 84443; 84481; 85025; 99284

== ENCOUNTER 2017-08-25 15:39 | Emergency (ER) | payer OTHER, MEDICAID ==
[2017-08-25] MEDS ORDERED: ONDANSETRON HCL INJ/PF 4 MG/2 ML SDV ONE (16:18)
[2017-08-25] MEDS ORDERED: NORMAL SALINE 1000 ML 1,000 ML IV ONE ×2 (16:18→17:45)
[2017-08-25] MEDS ORDERED: ONDANSETRON HCL INJ/PF 4 MG/2 ML SDV IV ONE (16:18)
[2017-08-25 16:21] LABS: ABSOLUTE LYMPHOCYTES (AUTO) 1.4 10^3/uL (0.5-4.7); ABSOLUTE MONOCYTES (AUTO) 0.6 10^3/uL (0.1-1.4); ABSOLUTE NEUT (AUTO) 8.9 10^3/uL (1.7-8.2); BASOPHILS % (AUTO) 0.1 % (0-2); HEMATOCRIT 38.6 % (36.0-47.0); HEMOGLOBIN 13.5 g/dL (12.0-15.5); HGB HCT DIFFERENCE 1.9; LYMPHOCYTES % (AUTO) 12.6 % (13-45); MEAN CORPUSCULAR HEMOGLOBIN 28.7 pg (27.0-33.4); MEAN CORPUSCULAR HGB CONC 34.9 g/dL (32.0-36.0); MEAN CORPUSCULAR VOLUME 82 fl (80-97); MONOCYTES % (AUTO) 5.6 % (3-13); RED BLOOD COUNT 4.69 10^6/uL (3.72-5.28); RED CELL DISTRIBUTION WIDTH 12.9 % (11.5-14.0); SEGMENTED NEUTROPHILS % (AUTO) 81.7 % (42-78); WHITE BLOOD COUNT 10.9 10^3/uL (4.0-10.5)
[2017-08-25] MEDS ORDERED: LEVETIRACETAM 1000 MG/NACL-ISO 1,000 MG/100 ML RTUPB IV ONE (16:21)
--- NOTE | 2017-08-25 16:26 | ER Document Report ---
ED General - General Chief Complaint: Probable Seizure Stated Complaint: POSSIBLE SEIZURE Time Seen by Provider: 08/25/17 15:51 Information source: Patient Notes: 21-year-old female with extensive past medical history including intracerebral hemorrhage at , cerebral palsy, necrotizing colitis, Graves' disease, and seizure disorder, who presents today with vomiting this morning. Patient subsequently had a tonic-clonic seizure. There has been no fevers, diarrhea, congestion, or cough over the last 24-48 hours according to mom. Patient is followed by a primary doctor as well as a neurologist and is currently taking Oxtella as well as thyroid medications. Mom denies missing any medications recently. Patient was given intramuscular Versed, 2 mg by EMS. The seizure lasted approximately 20 minutes according to mom. TRAVEL OUTSIDE OF THE [place] IN LAST 30 DAYS: No - HPI Onset: Just prior to arrival Onset/Duration: Sudden Quality of pain: No pain Severity: Severe Pain Level: Denies Associated symptoms: Other - See above Exacerbated by: Denies Relieved by: Denies Similar symptoms previously: Yes Recently seen / treated by doctor: Yes - Related Data Allergies/Adverse Reactions: No Known Allergies Allergy (Verified 06/06/17 12:19) Past Medical History - General Information source: Patient - Social History Smoking Status: Unknown if Ever Smoked Cigarette use (# per day): No Chew tobacco use (# tins/day): No Smoking Education Provided: No Frequency of alcohol use: None Drug Abuse: None Family History: Reviewed & Not Pertinent Neurological Medical History: Reports: Hx Seizures - Last seizure was in 2005 when she had a shunt revision Musculoskeltal Medical History: Reports Hx Muscle Spasm Past Surgical History: Reports: Hx Abdominal Surgery - bowl resection, Hx Bowel Surgery - Bowel resection for necrotizing enterocolitis, Hx Neurologic Surgery - INTERNET MARKETER shunt with 2 revisions, Hx Thyroid Surgery, Hx Vascular Surgery - AV shunt with revision in - Immunizations Immunizations up to date: Yes Hx Diphtheria, Pertussis, Tetanus Vaccination: Yes Review of Systems - Review of Systems Constitutional: denies: Fever EENT: denies: Eye discharge, Nose discharge Cardiovascular: denies: Chest pain, Palpitations Respiratory: denies: Short of breath Gastrointestinal: Vomiting. denies: Diarrhea Musculoskeletal: denies: Leg swelling Skin: denies: Rash Neurological/Psychological: Other - no slurred speech -: Yes All other systems reviewed and negative Physical Exam - Vital signs Vitals: Resp Pulse Ox 24 83 L 08/25/17 15:47 08/25/17 15:47 Notes: Reviewed vital signs and nursing note as charted by RN. CONSTITUTIONAL: Patient is currently responsive only to painful stimuli HEAD: Normocephalic; atraumatic EYES: PERRL ENT: Moist mucous membranes; pharynx without lesions noted NECK: Supple; no cervical lymphadenopathy, no masses CARD: Regular rate and rhythm; no murmurs RESP: Normal chest excursion without splinting or tachypnea; breath sounds clear and equal bilaterally; scattered rhonchi bilaterally ABD/GI: Normal bowel sounds; non-distended; soft, multiple old abdominal scars; no palpable organomegaly or masses BACK: The back appears normal and is non-tender to palpation EXT: No cyanosis, no effusions, no edema SKIN: No acute lesions noted NEURO: Moves all extremities equally Course - Re-evaluation Re-evalutation: Patient initially presented in a postictal-like state. Oxygen saturation levels are 70% on room air. We placed a nonrebreather on the patient. Portable x-ray of the chest has been ordered stat. Labs have been drawn including thyroid levels given the patient's previous history. 08/25/17 16:26 Patient's oxygen saturation is now 99% on a nonrebreather. We will attempt to wean the oxygen level. Labs have been drawn. EKG and imaging results are pending. 08/25/17 16:37 Heart rate 91, normal sinus rhythm, normal axis, no obvious ST elevation or depression Chest x-ray shows normal heart, normal mediastinum, no fractures, normal lung thompson, no pneumothorax. 08/25/17 17:27 Patient's labs as recorded. X-ray shows no obvious infiltrate. Patient's thyroid function panel is unchanged from previous visit on August 07 and improved from the visit June 06. 08/25/17 17:48 Patient's labs as recorded. Patient is currently back to baseline according to mom. No obvious pneumonia on x-ray of the chest. Patient states that those thyroid levels are completely unchanged from the previous visit to the throw out clerk. Patient is followed by [facility] pediatric neurology. I have placed a call for consultation. Patient currently has no abdominal pain or tenderness. No vomiting here at this facility. 08/25/17 18:10 I have spoken to the throw out clerk Dr. Branshon, transition mgr for the patient's group. I have explained the full history and physical examination as well as the medications the patient is taking. He is asked me to tell the mom to start the patient taking methimazole 10 mg twice a day instead of the 17.5 mg once a day. I have also called [facility] and I have spoken to the patient's transition mgr neurologist Dr. Boswell. I have explained the full history and physical examination as well as the previous seizures and the recent seizure history. I have also explained the patient's recent thyroid disorder. He verified that the patient is supposed to be taking 1800 mg of carbamazepine daily. He does not want to change or alter any medications at this time but has asked me to add a carbamazepine level which I have performed. He has also given me a direct phone number to help expedite the patient's primary follow-up with the neurology office. 08/25/17 18:21 Mom now allows me to the fact that the patient has a [facility] shunt. I will order a shunt series. Patient denies any abdominal pain or headache at this time. I have discussed with mom that I would also like to order three-way x-ray of the abdomen to assess for possible bowel obstruction. Patient currently does not have tenderness to the abdomen. Mom states she does not want an x-ray of the abdomen performed she believes that the patient is not suffering from an obstruction. The patient did have vomiting, no fevers, and does not have any abdominal pain. However, I did explain to mom that I am unable to completely evaluate the patient's risk of a bowel obstruction without the appropriate imaging. Mom understands these risks. 08/25/17 18:44 I spoke to the radiologist reading the CT scans of the head and she states she sees no acute abnormality compared to the previous CT scans. Shunt series shows no acute abnormalities. Patient has tolerated p.o. fluids. No vomiting Patient has been given 2 L of fluid. 08/25/17 19:00 We are currently attempting a p.o. challenge of the patient and have drawn the carbamazepine level. 08/25/17 20:06 Patient has tolerated p.o. fluids. She has not had any vomiting. The oxcarbamazepine level is a send out. Pt will be discharged home with strict return precautions and follow up with the throw out clerk and neurologist. - Vital Signs Vital signs: Temp Pulse Resp BP Pulse Ox 98.6 F 27 H 119/80 95 08/25/17 20:03 08/25/17 17:28 08/25/17 17:28 08/25/17 17:28 - Laboratory Result Diagrams: 08/25/17 16:15 08/25/17 16:15 Laboratory results interpreted by me: 08/25/17 08/25/17 08/25/17 16:15 16:15 16:15 WBC 10.9 H Seg Neutrophils % 81.7 H Lymphocytes % 12.6 L Absolute Neutrophils 8.9 H Sodium 129.5 L Chloride 97 L Carbon Dioxide 21 L Creatinine 0.40 L Glucose 130 H TSH < 0.01 L Free T4 0.50 L Free T3 pg/mL 8.44 H Urine Glucose (UA) Urine Ketones Urine Urobilinogen 08/25/17 17:21 WBC Seg Neutrophils % Lymphocytes % Absolute Neutrophils Sodium Chloride Carbon Dioxide Creatinine Glucose TSH Free T4 Free T3 pg/mL Urine Glucose (UA) 150 H Urine Ketones TRACE H Urine Urobilinogen 2.0 H Critical Care Note - Critical Care Note Total time excluding time spent on procedures (mins): 35 Discharge - Discharge Clinical Impression: Seizure Vomiting alone Qualifiers: Vomiting type: unspecified Vomiting Intractability: non-intractable Qualified Code(s): R11.11 - Vomiting without nausea Condition: Good Disposition: HOME, SELF-CARE Additional Instructions: Come back immediately with any persistent vomiting, fever, complaints of abdominal pain, change in mental status, weakness or numbness, or any other acute problems. Please make sure that she follows-up with the throw out clerk that we have spoken to as well as the neurologist at [phone]. Please also change the methimazole dosing to 10 mg twice a day instead of the 17.5 mg once a day as directed according to my phone call with the throw out clerk today. Prescriptions: Ondansetron [Zofran Odt 4 mg Tablet] 4 mg PO Q4HP PRN #20 tab.rapdis PRN Reason:
[2017-08-25 16:49] LABS: ANION GAP 12 (5-19); BLOOD UREA NITROGEN 9 mg/dL (7-20); CALCIUM 8.9 mg/dL (8.4-10.2); CARBON DIOXIDE 21 mmol/L (22-30); CHLORIDE 97 mmol/L (98-107); GLUCOSE 130 mg/dL (75-110); POTASSIUM 4.7 mmol/L (3.6-5.0); SODIUM 129.5 mmol/L (137-145)
--- NOTE | 2017-08-25 16:49 | RADIOLOGY REPORT (SQ) ---
EXAM DESCRIPTION: CHEST SINGLE VIEW COMPLETED DATE/TIME: 08/25/2017 4:25 pm REASON FOR STUDY: MP, seizure/possible aspiration COMPARISON: 06/06/2017 EXAM PARAMETERS: NUMBER OF VIEWS: One view. TECHNIQUE: Single frontal radiographic view of the chest acquired. RADIATION DOSE: NA LIMITATIONS: None. FINDINGS: LUNGS AND PLEURA: No opacities, masses or pneumothorax. No pleural effusion. MEDIASTINUM AND HILAR STRUCTURES: No masses. Contour normal. HEART AND VASCULAR STRUCTURES: Heart normal in size. Normal vasculature. BONES: No acute findings. HARDWARE: Right cervical vascular access catheter terminating in the region of the superior vena cava . OTHER: No other significant finding. IMPRESSION: Stable radiographic appearance of the chest. No evidence of acute pulmonary process. TECHNICAL DOCUMENTATION: JOB ID: [id number]
[2017-08-25 17:06] LABS: FREE T3 8.44 pg/mL (2.77-5.27)
[2017-08-25 17:20] LABS: THYROID STIMULATING HORMONE < 0.01 uIU/mL (0.47-4.68)
[2017-08-25 17:33] LABS: APPEARANCE,URINE CLEAR; BILIRUBIN,URINE NEGATIVE (NEGATIVE); GLUCOSE, URINE 150 mg/dL (NEGATIVE); KETONES,URINE TRACE mg/dL (NEGATIVE); LEUKOCYTE ESTERASE,URINE NEGATIVE (NEGATIVE); NITRITE,URINE NEGATIVE (NEGATIVE); PROTEIN,URINE NEGATIVE (NEGATIVE); URINE SPECIFIC GRAVITY 1.023
--- NOTE | 2017-08-25 18:44 | RADIOLOGY REPORT (SQ) ---
EXAM DESCRIPTION: CT HEAD WITHOUT COMPLETED DATE/TIME: 08/25/2017 6:31 pm REASON FOR STUDY: MP; va shunt; h/o seizures COMPARISON: 08/24/2015 TECHNIQUE: Axial images acquired through the brain without intravenous contrast. Images reviewed wi th bone, brain and subdural windows. Images stored on PACS. All CT scanners at this facility use dose modulation, iterative reconstruction, and/or weight based d osing when appropriate to reduce radiation dose to as low as reasonably achievable (ALARA). [facility]: Dose Right [facility]: CareDose [facility]: Dose Right [facility]: Teradose 4D [facility]: Smart Technologies RADIATION DOSE: Up-to-date CT equipment and radiation dose reduction techniques were employed. CTDIv ol: 64.6 mGy. DLP: 1163 mGy-cm. mGy. LIMITATIONS: None. FINDINGS: VENTRICLES: Stable size and configuration within a right lateral ventricle shunt which ter minates in the anterior horn. CEREBRUM: Stable CT appearance, again demonstrating geographic encephalomalacia involving the right p arieto-occipital lobes. Otherwise normal dougherty white-matter differentiation. No evidence of mass or h emorrhage. CEREBELLUM: Re- demonstration of left cerebellar encephalomalacia. No evidence of mass or hemorrhage . EXTRAAXIAL SPACES: No fluid collections. No masses. ORBITS AND GLOBE: No intra- or extraconal masses. Normal contour of globe without masses. CALVARIUM: No fracture. PARANASAL SINUSES: No fluid or mucosal thickening. SOFT TISSUES: No mass or hematoma. OTHER: No other significant finding. IMPRESSION: Stable CT appearance of the brain demonstrating a right lateral ventricle shunt without evidence of complication. EVIDENCE OF ACUTE STROKE: NO. COMMENT: Quality ID # [id number]: Final reports with documentation of one or more dose reduction techniques (e.g., Automated exposure control, adjustment of the mA and/or kV according to patient size, use of iterative reconstruction technique) TECHNICAL DOCUMENTATION: JOB ID: [id number] [employer]- All Rights Reserved
--- NOTE | 2017-08-25 19:14 | RADIOLOGY REPORT (SQ) ---
EXAM DESCRIPTION: SHUNTOGRAM SERIES COMPLETED DATE/TIME: 08/25/2017 6:57 pm REASON FOR STUDY: VA SHUNT COMPARISON: Head CT 08/25/2017 TECHNIQUE: Frontal radiographs were obtained of the calvarium, neck, chest, and abdomen. LIMITATIONS: None. FINDINGS: A ventricular shunt originates in the region of the right lateral ventricle (better charac terized on comparison CT imaging) traverses right occipital cranium, and courses along the right cerv ical soft tissues, terminating in the region of the superior vena cava. The shunt tube in appears to be intact. The calvarium appears grossly normal without depressed skull fracture. The osseous and soft tissue s tructures of the neck likewise appear normal. The lungs are clear and evenly aerated. Gas and stool are seen throughout the abdomen and pelvis without evidence of obstruction. The remaining bony and soft tissue structures are unremarkable. IMPRESSION: Stable position and appearance of a right lateral ventricle shunt. No acute findings. TECHNICAL DOCUMENTATION: JOB ID: [id number] [employer]- All Rights Reserved
[2017-08-25] MEDS ORDERED: ACETAMINOPHEN 325 MG TABLET PO ONE (20:09)
[2017-08-25 20:15] VITALS: BP 125/82
[2017-08-25] MEDS ORDERED: ONDANSETRON ODT 4 MG TAB (6 TAB/DSPK) PO PRN (21:22)
--- NOTE | 2017-08-26 09:20 | EKG REPORT ---
SEVERITY:- NORMAL ECG - SINUS RHYTHM : Confirmed by: Esha Tolbert MD 26-Aug-2017 09:19:01
== END 2017-08-25 20:26 | disposition home or self-care (01) ==
LOC: ER 15:39
DX: G40.909 Epilepsy, unspecified, not intractable, without status epilepticus (principal); R11.11 Vomiting without nausea; G80.9 Cerebral palsy, unspecified; K52.89 Other specified noninfective gastroenteritis and colitis; E05.00 Thyrotoxicosis with diffuse goiter without thyrotoxic crisis or storm
CPT/HCPCS: 93005; 99291; 96361; 51701; 96375; 96365; 80183; 36415; 87086; 84439; 84443; 85025; 80048; 81001; 84481; 75809; 71010; 70450; 93010; J2405; J7030; J1953

== ENCOUNTER 2018-05-24 00:29 | Emergency (ER) | payer OTHER, MEDICAID ==
[2018-05-24] MEDS ORDERED: LEVETIRACETAM 500 MG/NACL-ISO 500 MG/100 ML RTUPB IV ONE (00:42)
--- NOTE | 2018-05-24 00:46 | ER Document Report ---
ED Seizure - General Chief Complaint: Seizure Stated Complaint: POSSIBLE SEIZURE Time Seen by Provider: 05/24/18 00:33 Notes: Patient is a 22-year-old female who comes emergency department by EMS for chief complaint of seizures. She does have epilepsy, takes Oxtellar XR 2100 mg qhs, missed her dose tonight, she was out surfing per mom. Patient had a 10 minute seizure, 5 minute pause, followed by another 10 minute seizure. EMS gave her 5 mg intranasal Versed. Mom denies any fever, vomiting, or other sick symptoms. Only other past medical history is Graves' disease, on methimazole and propanolol. - Related Data Allergies/Adverse Reactions: No Known Allergies Allergy (Verified 06/06/17 12:19) Past Medical History - General Information source: Relative - Social History Smoking Status: Never Smoker Frequency of alcohol use: None Drug Abuse: None Lives with: Family Family History: Reviewed & Not Pertinent Neurological Medical History: Reports: Hx Seizures - 2006 shunt revision Musculoskeletal Medical History: Reports Hx Muscle Spasm Past Surgical History: Reports: Hx Abdominal Surgery - bowl resection, Hx Bowel Surgery - Bowel resection for necrotizing enterocolitis, Hx Neurologic Surgery - PERSONNEL ADMINISTRATOR shunt with 2 revisions, Hx Thyroid Surgery, Hx Vascular Surgery - AV shunt with revision in - Immunizations Immunizations up to date: Yes Hx Diphtheria, Pertussis, Tetanus Vaccination: Yes Review of Systems - Review of Systems Constitutional: No symptoms reported EENT: No symptoms reported Cardiovascular: No symptoms reported Respiratory: No symptoms reported Gastrointestinal: No symptoms reported Genitourinary: No symptoms reported Female Genitourinary: No symptoms reported Musculoskeletal: No symptoms reported Skin: No symptoms reported Hematologic/Lymphatic: No symptoms reported Neurological/Psychological: See HPI Physical Exam - Vital signs Vitals: Temp Pulse Resp BP Pulse Ox 98.5 F 121 H 18 132/78 H 88 L 05/24/18 00:29 05/24/18 00:29 05/24/18 00:29 05/24/18 00:29 05/24/18 00:29 - Notes Notes: GENERAL: Lethargic, arousable but falls back asleep quickly. Will follow commands. HEAD: Normocephalic, atraumatic. EYES: Pupils equal, round, and reactive to light. Extraocular movements intact. ENT: Oral mucosa moist, tongue midline. [Nares patent, no nasal septal hematoma , TM's intact.] NECK: Full range of motion. Supple. Trachea midline. LUNGS: Clear to auscultation bilaterally, no wheezes, rales, or rhonchi. No respiratory distress. HEART: Tachycardia with normal rhythm. No murmur ABDOMEN: Soft, non-tender. Non-distended. Bowel sounds present in all 4 quadrants. EXTREMITIES: Moves all 4 extremities spontaneously. No edema, normal radial and dorsalis pedis pulses bilaterally. No cyanosis. BACK: no cervical, thoracic, lumbar midline tenderness. No saddle anesthesia, normal distal neurovascular exam. NEUROLOGICAL: Confused to events but otherwise oriented. Normal speech. [ cranial nerves II through XII grossly intact]. PSYCH: Normal affect, normal mood. SKIN: Warm, dry, normal turgor. No rashes or lesions noted. Course - Re-evaluation Re-evalutation: On my exam patient is lethargic but will respond to and follow directions. She is hypoxic on room air at 88%, placed on oxygen, giving Keppra, performing chest x-ray, workup pending. Chest x-ray unremarkable, patient not hypoxic anymore on nasal cannula, nasal cannula was taken off and she remains not having any hypoxia, could be from Versed. CBC unremarkable, chemistry unremarkable, TSH is undetectable, T4 is low, however this is consistent with prior. Patient's tachycardia resolved after IV fluids. Urinalysis unremarkable. Magnesium unremarkable. Alcohol negative. Initial blood gas shows slightly low pH with slightly elevated CO2. This was repeated and was normal on room air. On reevaluation patient is more alert, conversational, answers questions appropriately. No additional seizure activity. Discussed patient with Dr. Hammond. Patient now sitting up, tolerating p.o., much improved. Discussed with patient mother, they are asking if they can leave. Because of multiple tendon seizures I will discuss with neurology at [facility] first. They state agreement. Discussed with Dr. Marquez Grigsby, on-call for Dr. Boswell patient's neurologist, patient will be given her dose of Oxtellar, call the office for close follow-up, however patient will be discharged home with return precautions. I discussed this with patient and mother, they state satisfaction and agreement with plan. - Vital Signs Vital signs: Temp Pulse Resp BP Pulse Ox 98.8 F 121 H 21 H 117/58 L 97 05/24/18 05:05 05/24/18 00:29 05/24/18 05:01 05/24/18 05:01 05/24/18 05:01 - Laboratory Result Diagrams: 05/24/18 00:53 05/24/18 00:53 Laboratory results interpreted by me: 05/24/18 05/24/18 05/24/18 00:53 00:53 00:53 VBG pH 7.22 L VBG pCO2 64.7 H Creatinine 0.39 L TSH < 0.01 L Free T4 0.27 L Urine Urobilinogen Ur Leukocyte Esterase 05/24/18 02:15 VBG pH VBG pCO2 Creatinine TSH Free T4 Urine Urobilinogen 4.0 H Ur Leukocyte Esterase TRACE H Discharge - Discharge Clinical Impression: Seizure Condition: Stable Disposition: HOME, SELF-CARE Additional Instructions: I spoke with Dr. Marqeuz Sahu, neurology at [facility]. He will be contacting Dr. Boswell, he also asked that you call the office of Dr. Boswell this morning to establish close follow-up. Return for any concerning symptoms including fever, vomiting, repeat seizures, or any other concerning symptoms.
[2018-05-24 01:05] LABS: ABSOLUTE LYMPHOCYTES (AUTO) 2.6 10^3/uL (0.5-4.7); ABSOLUTE MONOCYTES (AUTO) 0.7 10^3/uL (0.1-1.4); ABSOLUTE NEUT (AUTO) 3.3 10^3/uL (1.7-8.2); BASOPHILS % (AUTO) 0.2 % (0-2); EOSINOPHILS % (AUTO) 0.4 % (0-6); HEMATOCRIT 40.9 % (36.0-47.0); HEMOGLOBIN 14.2 g/dL (12.0-15.5); LYMPHOCYTES % (AUTO) 38.3 % (13-45); MEAN CORPUSCULAR HEMOGLOBIN 28.3 pg (27.0-33.4); MEAN CORPUSCULAR HGB CONC 34.6 g/dL (32.0-36.0); MEAN CORPUSCULAR VOLUME 82 fl (80-97); PLATELET COUNT 233 10^3/uL (150-450); RED BLOOD COUNT 5.01 10^6/uL (3.72-5.28); RED CELL DISTRIBUTION WIDTH 13.8 % (11.5-14.0); SEGMENTED NEUTROPHILS % (AUTO) 50.1 % (42-78); TOTAL CELLS COUNTED % (AUTO) 100 %; VENOUS BLOOD BASE EXCESS -3.1 mmol/L; VENOUS BLOOD PCO2 64.7 mmHg (35-63); VENOUS BLOOD PH 7.22 (7.30-7.42); WHITE BLOOD COUNT 6.7 10^3/uL (4.0-10.5)
--- NOTE | 2018-05-24 01:13 | RADIOLOGY REPORT (SQ) ---
EXAM DESCRIPTION: XR CHEST 1 VIEW COMPLETED DATE/TME: 05/24/2018 00:41 CLINICAL HISTORY: 22 years, Female, hypoxia COMPARISON: None. NUMBER OF VIEWS: One TECHNIQUE: AP view of the chest LIMITATIONS: None. FINDINGS: The right IJ line terminates within the SVC. The lungs are clear. The heart is normal in size. There is no pneumothorax or pleural effusion. There is no acute fracture. There is gaseous distention of the stomach IMPRESSION: No acute cardiopulmonary abnormality 2010 [employer]- All Rights Reserved
[2018-05-24 01:21] LABS: ALANINE AMINOTRANSFERASE 31 U/L (9-52); ALBUMIN 3.9 g/dL (3.5-5.0); ALKALINE PHOSPHATASE 60 U/L (38-126); ANION GAP 12 (5-19); ASPARTATE AMINO TRANSFERASE 29 U/L (14-36); BILIRUBIN,DIRECT 0.3 mg/dL (0.0-0.4); BILIRUBIN,TOTAL 0.4 mg/dL (0.2-1.3); BLOOD UREA NITROGEN 9 mg/dL (7-20); CALCIUM 8.9 mg/dL (8.4-10.2); CARBON DIOXIDE 25 mmol/L (22-30); CHLORIDE 102 mmol/L (98-107); GLUCOSE 82 mg/dL (75-110); POTASSIUM 4.3 mmol/L (3.6-5.0); SODIUM 139.3 mmol/L (137-145); TOTAL PROTEIN 6.7 g/dL (6.3-8.2)
[2018-05-24 01:25] LABS: ALCOHOL < 10 mg/dL (NONE DETECTED)
[2018-05-24 01:37] LABS: FREE T4 (FREE THYROXINE) 0.27 ng/dL (0.78-2.19)
[2018-05-24 01:52] LABS: THYROID STIMULATING HORMONE < 0.01 uIU/mL (0.47-4.68)
[2018-05-24] MEDS ORDERED: NORMAL SALINE 1000 ML 800 ML IV ONE (02:17)
[2018-05-24 02:59] LABS: APPEARANCE,URINE CLEAR; BILIRUBIN,URINE NEGATIVE (NEGATIVE); COLOR,URINE YELLOW; GLUCOSE, URINE NEGATIVE (NEGATIVE); KETONES,URINE NEGATIVE (NEGATIVE); LEUKOCYTE ESTERASE,URINE TRACE (NEGATIVE); NITRITE,URINE NEGATIVE (NEGATIVE); PROTEIN,URINE NEGATIVE (NEGATIVE); URINE SPECIFIC GRAVITY 1.006
[2018-05-24 05:02] LABS: VENOUS BLOOD BASE EXCESS -2.5 mmol/L; VENOUS BLOOD HCO3 22.9 mmol/L (20-32); VENOUS BLOOD PCO2 42.1 mmHg (35-63); VENOUS BLOOD PH 7.35 (7.30-7.42)
[2018-05-24 05:43] VITALS: BP 117/58
== END 2018-05-24 05:50 | disposition home or self-care (01) ==
LOC: ER 00:29
DX: G40.909 Epilepsy, unspecified, not intractable, without status epilepticus (principal); T42.1X6A Underdosing of iminostilbenes, initial encounter; Z91.128 Patient's intentional underdosing of medication regimen for other reason; Z91.14 Patient's other noncompliance with medication regimen; E05.00 Thyrotoxicosis with diffuse goiter without thyrotoxic crisis or storm; Z79.899 Other long term (current) drug therapy; R00.0 Tachycardia, unspecified; R09.02 Hypoxemia
CPT/HCPCS: 99284; 96361; 96365; 36415; 84439; 80307; 83735; 84443; 85025; 80053; 81001; 82803; 71045; J7030; J1953

== ENCOUNTER 2018-11-11 14:52 | Inpatient (IN) | payer MEDICAID, OTHER ==
[2018-11-11] MEDS ORDERED: IPRATROPIUM/ALBUTEROL 0.5-2.5 MG/3 ML AMPUL NEB ONE ×4 (15:13→15:33)
[2018-11-11] MEDS ORDERED: NORMAL SALINE 1000 ML 1,000 ML IV ONE (15:16)
[2018-11-11] MEDS ORDERED: PIPERACILLIN/TAZOBACTAM 4.5 GM VIAL IV ONE (15:16)
[2018-11-11] MEDS ORDERED: ONDANSETRON HCL INJ/PF 4 MG/2 ML SDV ONE (15:24)
[2018-11-11 15:30] LABS: VENOUS BLOOD BASE EXCESS -0.4 mmol/L; VENOUS BLOOD HCO3 26.5 mmol/L (20-32); VENOUS BLOOD PCO2 52.3 mmHg (35-63); VENOUS BLOOD PH 7.32 (7.30-7.42)
[2018-11-11 15:31] LABS: ABSOLUTE LYMPHOCYTES (AUTO) 2.4 10^3/uL (0.5-4.7); ABSOLUTE MONOCYTES (AUTO) 0.8 10^3/uL (0.1-1.4); ABSOLUTE NEUT (AUTO) 6.1 10^3/uL (1.7-8.2); BASOPHILS % (AUTO) 0.2 % (0-2); EOSINOPHILS % (AUTO) 0.2 % (0-6); HEMATOCRIT 40.6 % (36.0-47.0); HEMOGLOBIN 14.3 g/dL (12.0-15.5); LYMPHOCYTES % (AUTO) 25.7 % (13-45); MEAN CORPUSCULAR HEMOGLOBIN 28.8 pg (27.0-33.4); MEAN CORPUSCULAR HGB CONC 35.2 g/dL (32.0-36.0); MEAN CORPUSCULAR VOLUME 82 fl (80-97); PLATELET COUNT 315 10^3/uL (150-450); RED BLOOD COUNT 4.96 10^6/uL (3.72-5.28); RED CELL DISTRIBUTION WIDTH 12.7 % (11.5-14.0); SEGMENTED NEUTROPHILS % (AUTO) 64.9 % (42-78); TOTAL CELLS COUNTED % (AUTO) 100 %; WHITE BLOOD COUNT 9.4 10^3/uL (4.0-10.5)
[2018-11-11] MEDS ORDERED: ONDANSETRON HCL INJ/PF 4 MG/2 ML SDV IV ONE (15:31)
--- NOTE | 2018-11-11 15:32 | ER Document Report ---
ED General - General Stated Complaint: POSSIBLE SEIZURE Time Seen by Provider: 11/11/18 15:04 Mode of Arrival: Medic Information source: Parent, Emergency Med Personnel Cannot obtain history due to: Altered mental status Notes: 23-year-old female with a seizure disorder, Graves' disease, cerebral palsy with a TACKING STITCH REMOVER shunt presents via EMS after a witnessed seizure at home. Seizure lasted approximately 7-10 minutes which the mother reports is normal for her. Upon EMS arrival they state the patient had tonic movements. They administered 5 mg of Versed IM and to ensure nasally. Mother is concerned because patient post ictal state usually does not take this long. Patient's mother reports that the patient has had several days of rhinorrhea. She denies cough, fever, vomiting, diarrhea. Patient at baseline is conversive. She receives her neurologic care at [facility]. Patient currently is on seizure medication and mother reports that they have been occurring more frequently lately. TRAVEL OUTSIDE OF THE [place] IN LAST 30 DAYS: No - HPI Onset: Just prior to arrival Onset/Duration: Sudden Associated symptoms: Rhinnorhea. denies: Diarrhea, Fever, Vomiting - Related Data Allergies/Adverse Reactions: No Known Allergies Allergy (Verified 06/06/17 12:19) Past Medical History - General Information source: Parent, Emergency Med Personnel, [facility] Records - Social History Smoking Status: Never Smoker Frequency of alcohol use: None Drug Abuse: None Lives with: Family Family History: Reviewed & Not Pertinent Neurological Medical History: Reports: Hx Seizures - 2006 shunt revision, Other - Cerebral palsy Renal/ Medical History: Denies: Hx Peritoneal Dialysis Musculoskeletal Medical History: Reports Hx Muscle Spasm Past Surgical History: Reports: Hx Abdominal Surgery - bowl resection, Hx Bowel Surgery - Bowel resection for necrotizing enterocolitis, Hx Neurologic Surgery - TACKING STITCH REMOVER shunt with 2 revisions, Hx Thyroid Surgery, Hx Vascular Surgery - AV shunt with revision in 06 - Immunizations Immunizations up to date: Yes Hx Diphtheria, Pertussis, Tetanus Vaccination: Yes Review of Systems - Review of Systems -: Yes ROS unobtainable due to patient's medical condition Constitutional: denies: Fever EENT: Nose congestion, Nose discharge Respiratory: denies: Cough Gastrointestinal: denies: Diarrhea, Vomiting Genitourinary: denies: Hematuria Neurological/Psychological: Seizure Physical Exam - Vital signs Vitals: Resp BP Pulse Ox 33 H 103/68 82 L 11/11/18 15:14 11/11/18 15:14 11/11/18 15:14 Interpretation: Hypotensive, Hypoxic - Notes Notes: PHYSICAL EXAMINATION: GENERAL: Somnolent, HEAD: Atraumatic, normocephalic. EYES: Pupils equal round and reactive to light, conjunctiva are normal. ENT: Nares patent, oropharynx clear without exudates. Moist mucous membranes. NECK: Normal range of motion, supple without lymphadenopathy LUNGS: Coarse breath sounds bilateral lower lung thompson. HEART: Regular rate and rhythm without murmurs ABDOMEN: Soft, nontender, nondistended abdomen. No guarding, no rebound. No masses appreciated. Female : deferred Musculoskeletal: Contracted extremities. NEUROLOGICAL: Somnolent, responds to pain. PSYCH: Normal mood, normal affect. SKIN: Warm, Dry, normal turgor, no rashes or lesions noted. Course - Re-evaluation Re-evalutation: Temp Pulse Resp BP Pulse Ox 33 H 103/68 82 L 11/11/18 15:14 11/11/18 15:14 11/11/18 15:14 Laboratory 11/11/18 11/11/18 11/11/18 15:15 15:15 15:15 WBC 9.4 RBC 4.96 Hgb 14.3 Hct 40.6 MCV 82 MCH 28.8 MCHC 35.2 RDW 12.7 Plt Count 315 Seg Neutrophils % 64.9 Lymphocytes % 25.7 Monocytes % 9.0 Eosinophils % 0.2 Basophils % 0.2 Absolute Neutrophils 6.1 Absolute Lymphocytes 2.4 Absolute Monocytes 0.8 Absolute Eosinophils 0.0 Absolute Basophils 0.0 VBG pH VBG pCO2 VBG HCO3 VBG Base Excess Sodium 127.2 L Potassium 4.5 Chloride 93 L Carbon Dioxide 27 Anion Gap 7 BUN 10 Creatinine 0.37 L Est GFR ( Amer) > 60 Est GFR (Non-Af Amer) > 60 Glucose 93 Lactic Acid 1.0 Calcium 8.7 Total Bilirubin 0.5 Direct Bilirubin 0.2 Neonat Total Bilirubin Not Reportable Neonat Direct Bilirubin Not Reportable Neonat Indirect Bili Not Reportable AST 27 ALT 23 Alkaline Phosphatase 72 Total Protein 6.9 Albumin 4.1 Serum HCG, Qual Urine Color Urine Appearance Urine pH Ur Specific [place] Urine Protein Urine Glucose (UA) Urine Ketones Urine Blood Urine Nitrite Urine Bilirubin Urine Urobilinogen Ur Leukocyte Esterase Urine WBC (Auto) Urine RBC (Auto) Squamous Epi Cells Auto Amorphous Sediment Auto Urine Mucus (Auto) Urine Ascorbic Acid 11/11/18 11/11/18 11/11/18 15:15 15:15 16:17 WBC RBC Hgb Hct MCV MCH MCHC RDW Plt Count Seg Neutrophils % Lymphocytes % Monocytes % Eosinophils % Basophils % Absolute Neutrophils Absolute Lymphocytes Absolute Monocytes Absolute Eosinophils Absolute Basophils VBG pH 7.32 VBG pCO2 52.3 VBG HCO3 26.5 VBG Base Excess -0.4 Sodium Potassium Chloride Carbon Dioxide Anion Gap BUN Creatinine Est GFR ( Amer) Est GFR (Non-Af Amer) Glucose Lactic Acid Calcium Total Bilirubin Direct Bilirubin Neonat Total Bilirubin Neonat Direct Bilirubin Neonat Indirect Bili AST ALT Alkaline Phosphatase Total Protein Albumin Serum HCG, Qual NEGATIVE Urine Color YELLOW Urine Appearance SLIGHTLY-CLOUDY Urine pH 7.0 Ur Specific [place] 1.023 Urine Protein 100 H Urine Glucose (UA) NEGATIVE Urine Ketones TRACE H Urine Blood NEGATIVE Urine Nitrite NEGATIVE Urine Bilirubin NEGATIVE Urine Urobilinogen 2.0 H Ur Leukocyte Esterase NEGATIVE Urine WBC (Auto) 1 Urine RBC (Auto) 1 Squamous Epi Cells Auto <1 Amorphous Sediment Auto TRACE Urine Mucus (Auto) RARE Urine Ascorbic Acid 40 H Shuntogram 11/11/18 15:15 IMPRESSION: Catheter as described. Refer to operative record for further information. Chest X-Ray 11/11/18 15:17 IMPRESSION: Left lower lobe pneumonia. 11/11/18 15:34 23-year-old female with a history of seizure disorder presents via EMS from home after a witnessed seizure. Mother states that the patient is on seizure medicat ion and has been compliant. She does report an increase in seizure activity over the last few months. She states that she usually has them approximately a 2 months. She does receive neurology care at [facility]. Upon arrival patient is somnolent after 5 IM of Versed and 2 mg of Versed intranasally. Mother states that she does not usually give her anything for her seizure medications and her postictal state lasts approximately 20 minutes. Upon arrival patient is tachypneic, hypoxic. Patient did receive breathing for 8 minutes and was placed on a nonrebreather. Patient's O2 sat improved minimally so BiPAP was placed. Septic workup and shuntogram pending. IV fluids, Zosyn administered. 11/11/18 16:56 Chest x-ray obtained and showed a large left lower lobe pneumonia. Shuntogram is unchanged from previous. Patient is hypothermic. CMP shows no white count or anemia. CMP does show hyponatremia. Urinalysis within normal limits. VBG and lactate within normal limits. Patient's hypoxia has improved on BiPAP. She was reevaluated and is now more alert, awake. Patient has been accepted by the hospitalist for admission. - Vital Signs Vital signs: Temp Pulse Resp BP Pulse Ox 18 104/60 100 11/11/18 16:00 11/11/18 16:00 11/11/18 16:00 - Laboratory Result Diagrams: 11/11/18 15:15 11/11/18 15:15 Laboratory results interpreted by me: 11/11/18 11/11/18 15:15 16:17 Sodium 127.2 L Chloride 93 L Creatinine 0.37 L Urine Protein 100 H Urine Ketones TRACE H Urine Urobilinogen 2.0 H Urine Ascorbic Acid 40 H - Diagnostic Test Radiology reviewed: Image reviewed, Reports reviewed - EKG Interpretation by Ak EKG shows normal: Sinus rhythm Rate: Normal Rhythm: NSR When compared to previous EKG there are: No significant change Critical Care Note - Critical Care Note Total time excluding time spent on procedures (mins): 40 - Minutes of critical care time spent in direct contact evaluating and reevaluating the patient, treating symptoms, reviewing labs and studies and speaking with family and consultants excluding any procedures Discharge - Discharge Clinical Impression: Hypoxia, Hyponatremia, Seizure disorder, Respiratory distress Pneumonia Qualifiers: Pneumonia type: due to unspecified organism Laterality: left Lung location: lower lobe of lung Qualified Code(s): J18.1 - Lobar pneumonia, unspecified organism Cerebral palsy Qualifiers: Cerebral palsy type: unspecified type Qualified Code(s): G80.9 - Cerebral palsy, unspecified Condition: Fair Disposition: ADMITTED INPATIENT Admitting Provider: Hospitalist Unit Admitted: IMCU Referrals: NICHOLAS PEREZ JR, MD [Primary Care Provider] - Follow up as needed
[2018-11-11 15:43] LABS: ALANINE AMINOTRANSFERASE 23 U/L (9-52); ALBUMIN 4.1 g/dL (3.5-5.0); ALKALINE PHOSPHATASE 72 U/L (38-126); ANION GAP 7 (5-19); ASPARTATE AMINO TRANSFERASE 27 U/L (14-36); BILIRUBIN,DIRECT 0.2 mg/dL (0.0-0.4); BILIRUBIN,TOTAL 0.5 mg/dL (0.2-1.3); BLOOD UREA NITROGEN 10 mg/dL (7-20); CALCIUM 8.7 mg/dL (8.4-10.2); CARBON DIOXIDE 27 mmol/L (22-30); CHLORIDE 93 mmol/L (98-107); GLUCOSE 93 mg/dL (75-110); POTASSIUM 4.5 mmol/L (3.6-5.0); SODIUM 127.2 mmol/L (137-145); TOTAL PROTEIN 6.9 g/dL (6.3-8.2)
--- NOTE | 2018-11-11 15:59 | RADIOLOGY REPORT (SQ) ---
EXAM DESCRIPTION: CHEST SINGLE VIEW COMPLETED DATE/TIME: 11/11/2018 3:49 pm REASON FOR STUDY: Hypoxic COMPARISON: 08/24/2015 EXAM PARAMETERS: NUMBER OF VIEWS: One view. TECHNIQUE: Single frontal radiographic view of the chest acquired. RADIATION DOSE: NA LIMITATIONS: None. FINDINGS: LUNGS AND PLEURA: Considerable opacification in the left base. MEDIASTINUM AND HILAR STRUCTURES: No masses. Contour normal. HEART AND VASCULAR STRUCTURES: Heart normal in size. Normal vasculature. BONES: No acute findings. HARDWARE: Right internal jugular catheter with the tip in the superior vena cava. OTHER: No other significant finding. IMPRESSION: Left lower lobe pneumonia. TECHNICAL DOCUMENTATION: JOB ID: [id number] [employer]- All Rights Reserved Reading location - IP/workstation name: [email or web address]
--- NOTE | 2018-11-11 16:02 | RADIOLOGY REPORT (SQ) ---
EXAM DESCRIPTION: SHUNTOGRAM SERIES COMPLETED DATE/TIME: 11/11/2018 3:49 pm REASON FOR STUDY: ams COMPARISON: 08/25/2017 TECHNIQUE: An AP view from skull to the upper chest. LIMITATIONS: None. FINDINGS: A shunt catheter is present on the right. The tip of the catheter is in the upper mediast inum. IMPRESSION: Catheter as described. Refer to operative record for further information. TECHNICAL DOCUMENTATION: JOB ID: [id number] [employer]- All Rights Reserved Reading location - IP/workstation name: [email or web address]
[2018-11-11 16:36] LABS: AMORPHOUS SEDIMENT,URINE TRACE /HPF; APPEARANCE,URINE SLIGHTLY-CLOUDY; BILIRUBIN,URINE NEGATIVE (NEGATIVE); COLOR,URINE YELLOW; GLUCOSE, URINE NEGATIVE (NEGATIVE); KETONES,URINE TRACE mg/dL (NEGATIVE); LEUKOCYTE ESTERASE,URINE NEGATIVE (NEGATIVE); NITRITE,URINE NEGATIVE (NEGATIVE); PROTEIN,URINE 100 mg/dL (NEGATIVE); URINE SPECIFIC GRAVITY 1.023
[2018-11-11 17:01] LABS: INTERNATIONAL RATION (INR) 1.17; PROTHROMBIN TIME 15.5 SEC (11.4-15.4)
[2018-11-11] MEDS ORDERED: DEXTROSE 40% GEL 15 GM TUBE PO PRN ×2 (17:29)
[2018-11-11] MEDS ORDERED: DEXTROSE 50%-WATER 25 GM/50 ML DISP.SYRIN IV PRN ×2 (17:29)
[2018-11-11] MEDS ORDERED: GLUCAGON,HUMAN RECOMB 1 MG INJ SUBCUT PRN (17:29)
--- NOTE | 2018-11-11 17:29 | PDOC H&P ---
History of Present Illness Admission Date/PCP: 11/11/18 16:55 NICHOLAS PEREZ JR, MD Patient complains of: Seizure History of Present Illness: NADEGE NEWMAN is a 23 year old female with a past medical history of cerebral palsy, hyper thyroidism with Graves' disease and seizure disorder who presented to the ED for having a seizure at home. Mother is primary historian as patient is on BiPAP-she states normally patient has a seizure and she recovers from them quickly but during this seizure she was not herself. Mother states that patients sister was at home who called EMS and they brought her here. Mother states that seizure was less than 15 minutes but she is not sure how long it was as mother was not present during this event. On route EMS did give her some Versed and hence she is very groggy at this time. Mother states that she did not have any cough, shortness of breath, fevers or chills at home but does admit to some runny nose. Mother states that in 2014 she had a similar seizure with similar post ictal state and at that time she had a pneumonia. Mother admits that she has not missed any of her doses of her seizure medicine. Mother admits that she has a seizure every 6-8 weeks in the last year. She follows up with neurologist in [place]-Dr. Boswell. I have asked mother if I should contact her neurologist but she states at this time is to treat the pneumonia. I spoke with patient briefly as she is on BiPAP-she denies any pain but she does not like the BiPAP. As we are speaking patient is becoming more alert and awake and mother tells me that she is coming back to herself. Past Medical History Neurological Medical History: Reports: Seizures - 2006 shunt revision, Other - Cerebral palsy Endocrine Medical History: Reports: Hyperthyroidism, Other - Graves' disease Past Surgical History Past Surgical History: Reports: Vascular Surgery - AV shunt with revision in Social History Lives with: Family Smoking Status: Never Smoker - Advance Directive Resuscitation Status: Full Code - Spoke with mother about her CODE STATUS Family History Family History: Reviewed & Not Pertinent Parental Family History Reviewed: Yes Children Family History Reviewed: Unknown Sibling(s) Family History Reviewed.: Unknown Medication/Allergy Home Medications: Methimazole [Tapazole] 17.5 mg PO DAILY 06/06/17 Oxcarbazepine [Oxtellar Xr] 1,800 mg PO DAILY 06/06/17 Propranolol HCl [Propranolol HCl ER] 160 mg PO DAILY #30 cap.sa.24h 06/06/17 Ondansetron [Zofran Odt 4 mg Tablet] 4 mg PO Q4HP PRN #20 tab.rapdis 08/25/17 Allergies/Adverse Reactions: No Known Allergies Allergy (Verified 06/06/17 12:19) Review of Systems Constitutional: ABSENT: chills, fever(s) Eyes: ABSENT: visual disturbances Ears: ABSENT: hearing changes Nose, Mouth, and Throat: ABSENT: headache(s), sore throat Cardiovascular: ABSENT: chest pain Respiratory: PRESENT: other - Runny nose. ABSENT: cough, dyspnea Gastrointestinal: ABSENT: abdominal pain, nausea, vomiting Genitourinary: ABSENT: difficulty urinating Neurological: PRESENT: other - Seizures. ABSENT: focal weakness, frequent falls, syncope Physical Exam Vital Signs: Temp Pulse Resp BP Pulse Ox 18 104/60 100 11/11/18 16:00 11/11/18 16:00 11/11/18 16:00 Intake & Output 11/10/18 11/11/18 11/12/18 06:59 06:59 06:59 Weight 89 lb 4.595 oz General appearance: PRESENT: no acute distress - On BiPAP Head exam: PRESENT: atraumatic, normocephalic Eye exam: PRESENT: EOMI, PERRLA. ABSENT: scleral icterus Neck exam: PRESENT: tracheal deviation Respiratory exam: PRESENT: symmetrical, other - difficult to auscultate given her BiPAP Cardiovascular exam: PRESENT: +S1, +S2 Pulses: PRESENT: +2 pedal pulses bilateral GI/Abdominal exam: PRESENT: normal bowel sounds, soft. ABSENT: tenderness Extremities exam: ABSENT: pedal edema Neurological exam: PRESENT: awake, oriented to person, other - Difficult to evaluate since she is on BiPAP Skin exam: PRESENT: dry, warm Results Laboratory Results: 11/11/18 15:15 11/11/18 15:15 11/11/18 11/11/18 11/11/18 15:15 15:15 15:15 WBC 9.4 RBC 4.96 Hgb 14.3 Hct 40.6 MCV 82 MCH 28.8 MCHC 35.2 RDW 12.7 Plt Count 315 Seg Neutrophils % 64.9 Lymphocytes % 25.7 Monocytes % 9.0 Eosinophils % 0.2 Basophils % 0.2 Absolute Neutrophils 6.1 Absolute Lymphocytes 2.4 Absolute Monocytes 0.8 Absolute Eosinophils 0.0 Absolute Basophils 0.0 VBG pH VBG pCO2 VBG HCO3 VBG Base Excess Sodium 127.2 L Potassium 4.5 Chloride 93 L Carbon Dioxide 27 Anion Gap 7 BUN 10 Creatinine 0.37 L Est GFR ( Amer) > 60 Est GFR (Non-Af Amer) > 60 Glucose 93 Lactic Acid 1.0 Calcium 8.7 Total Bilirubin 0.5 AST 27 ALT 23 Alkaline Phosphatase 72 Total Protein 6.9 Albumin 4.1 Serum HCG, Qual Urine Color Urine Appearance Urine pH Ur Specific [place] Urine Protein Urine Glucose (UA) Urine Ketones Urine Blood Urine Nitrite Ur Leukocyte Esterase Urine WBC (Auto) Urine RBC (Auto) 11/11/18 11/11/18 11/11/18 15:15 15:15 16:17 WBC RBC Hgb Hct MCV MCH MCHC RDW Plt Count Seg Neutrophils % Lymphocytes % Monocytes % Eosinophils % Basophils % Absolute Neutrophils Absolute Lymphocytes Absolute Monocytes Absolute Eosinophils Absolute Basophils VBG pH 7.32 VBG pCO2 52.3 VBG HCO3 26.5 VBG Base Excess -0.4 Sodium Potassium Chloride Carbon Dioxide Anion Gap BUN Creatinine Est GFR ( Amer) Est GFR (Non-Af Amer) Glucose Lactic Acid Calcium Total Bilirubin AST ALT Alkaline Phosphatase Total Protein Albumin Serum HCG, Qual NEGATIVE Urine Color YELLOW Urine Appearance SLIGHTLY-CLOUDY Urine pH 7.0 Ur Specific [place] 1.023 Urine Protein 100 H Urine Glucose (UA) NEGATIVE Urine Ketones TRACE H Urine Blood NEGATIVE Urine Nitrite NEGATIVE Ur Leukocyte Esterase NEGATIVE Urine WBC (Auto) 1 Urine RBC (Auto) 1 Impressions: Shuntogram 11/11/18 15:15 IMPRESSION: Catheter as described. Refer to operative record for further information. Chest X-Ray 11/11/18 15:17 IMPRESSION: Left lower lobe pneumonia. Assessment & Plan - Diagnosis (1) Acute respiratory failure with hypoxia Is this a current diagnosis for this admission?: Yes (2) Left lower lobe pneumonia Is this a current diagnosis for this admission?: Yes (3) Graves disease Is this a current diagnosis for this admission?: Yes (4) Cerebral palsy Qualifiers: Cerebral palsy type: unspecified type Qualified Code(s): G80.9 - Cerebral palsy, unspecified Is this a current diagnosis for this admission?: Yes (5) Seizure disorder Is this a current diagnosis for this admission?: Yes - Time Time Spent: 50 to 70 Minutes Anticipated discharge: Home Within: Other - when pneumonia is better - Inpatient Certification Based on my medical assessment, after consideration of the patient's comorbidities, presenting symptoms, or acuity I expect that the services needed warrant INPATIENT care.: Yes I certify that my determination is in accordance with my understanding of Medicare's requirements for reasonable and necessary INPATIENT services [42 CFR 412.3e].: Yes - Plan Summary Plan Summary: Acute respiratory failure with hypoxia-saturation around 82% on arrival on room air and hence placed on BiPAP. She is improving as her sats are about 100%. Likely secondary to pneumonia versus other causes. ABG is ordered and pending. We will wean her BiPAP to nasal cannula when ready. Left lower lobe opacity-seen on chest x-ray and concerning for pneumonia-we will get a CT chest to verify these findings. We will start her on IV antibiotics empirically to treat for community-acquired pneumonia. We will also add that treatments to help with the breathing. Seizure disorder-had seizure this afternoon brought to the ER for evaluation. As per mom she was not there but her sister believes it was less than 15 minutes in duration. She has a history of seizures and follows up with Dr. Boswell in [place]. Mom is asked not to contact neurology at this time since we feel that her seizure was secondary to her pneumonia which she also had in 2014. I have asked mom to bring her home medications and will continue them here in the hospital. Graves' disease-we will continue with her methimazole. Will check TSH in T3/T4.
[2018-11-11] MEDS ORDERED: PHARMACY COMMUNICATION ORDER MC NR (17:30)
[2018-11-11 17:33] LABS: ARTERIAL BLOOD BASE EXCESS -4.1 mmol/L; ARTERIAL BLOOD H2CO3 1.04 mmol/L (1.05-1.35); ARTERIAL BLOOD HCO3 20.1 mmol/L (20-24); ARTERIAL BLOOD O2 SATURATION 99.9 % (94-98); ARTERIAL BLOOD PCO2 34.4 mmHg (35-45); ARTERIAL BLOOD PH 7.38 (7.35-7.45); ARTERIAL BLOOD PO2 469.5 mmHg (80-100); ARTERIAL BLOOD TOTAL CO2 21.1 mmol/L (21-25)
[2018-11-11 17:35] LABS: ARTERIAL BLOOD FIO2 100%
--- NOTE | 2018-11-11 17:58 | RADIOLOGY REPORT (SQ) ---
EXAM DESCRIPTION: CT CHEST WITHOUT COMPLETED DATE/TIME: 11/11/2018 5:44 pm REASON FOR STUDY: left lower lobe opacity- r/o pneumonia COMPARISON: None. TECHNIQUE: CT scan performed of the chest without intravenous contrast. Images reviewed with lung, soft tissue and bone windows. Reconstructed coronal and sagittal MPR images reviewed. All images st ored on PACS. All CT scanners at this facility use dose modulation, iterative reconstruction, and/or weight based d osing when appropriate to reduce radiation dose to as low as reasonably achievable (ALARA). [facility]: Dose Right [facility]: CareDose [facility]: Dose Right [facility]: Teradose 4D [facility]: Smart [employer] RADIATION DOSE: CT Rad equipment meets quality standard of care and radiation dose reduction techniq ues were employed. CTDIvol: 4.8 mGy. DLP: 164 mGy-cm. mGy. LIMITATIONS: No technical limitations. FINDINGS: LUNGS AND PLEURA: Extensive consolidation in the left upper and lower lobes with relative sparing of the apex. More patchy dependent airspace disease in the right lower lobe. No evidence of cavitation. No effusions. HILAR AND MEDIASTINAL STRUCTURES: No identified masses or abnormal nodes. No obvious aneurysm. HEART AND VASCULAR STRUCTURES: No aneurysm. No pericardial effusion. UPPER ABDOMEN: No significant findings. Limited exam. THYROID AND OTHER SOFT TISSUES: No masses. No adenopathy. BONES: No significant finding. HARDWARE: None in the chest. OTHER: Right-sided central line tip in the SVC. IMPRESSION: Bilateral pneumonia with more extensive consolidation in the left lung. TECHNICAL DOCUMENTATION: JOB ID: [id number] Quality ID # [id number]: Final reports with documentation of one or more dose reduction techniques (e.g., Au tomated exposure control, adjustment of the mA and/or kV according to patient size, use of iterative reconstruction technique) 2010 [employer]- All Rights Reserved Reading location - IP/workstation name: [email or web address]
[2018-11-11] MEDS: NORMAL SALINE 1000 ML 1,000 ML IV PRN (20:04)
[2018-11-11] MEDS: ALBUTEROL SULFATE 0.083% NEB 2.5 MG/3 ML AMPUL NEB SCH (20:08)
--- NOTE | 2018-11-11 20:34 | EKG REPORT ---
SEVERITY:- NORMAL ECG - SINUS RHYTHM : Confirmed by: Ramesh Velasco MD 11-Nov-2018 20:32:43
[2018-11-11] MEDS: FAMOTIDINE 20 MG TABLET PO SCH (21:11)
[2018-11-11] MEDS: ENOXAPARIN SODIUM INJ 40 MG/0.4 ML DISP.SYRIN SUBCUT SCH (21:13)
[2018-11-11] MEDS ORDERED: ACETAMINOPHEN 325 MG TABLET PO PRN (21:17)
[2018-11-11] MEDS ORDERED: ACETAMINOPHEN 650 MG SUPP.RECT PR PRN (22:33)
[2018-11-12 05:25] LABS: ABSOLUTE LYMPHOCYTES (AUTO) 1.5 10^3/uL (0.5-4.7); ABSOLUTE MONOCYTES (AUTO) 1.1 10^3/uL (0.1-1.4); ABSOLUTE NEUT (AUTO) 12.8 10^3/uL (1.7-8.2); BASOPHILS % (AUTO) 0.2 % (0-2); HEMATOCRIT 38.7 % (36.0-47.0); HEMOGLOBIN 13.4 g/dL (12.0-15.5); LYMPHOCYTES % (AUTO) 9.5 % (13-45); MEAN CORPUSCULAR HEMOGLOBIN 28.5 pg (27.0-33.4); MEAN CORPUSCULAR HGB CONC 34.7 g/dL (32.0-36.0); MEAN CORPUSCULAR VOLUME 82 fl (80-97); MONOCYTES % (AUTO) 6.8 % (3-13); PLATELET COUNT 218 10^3/uL (150-450); RED BLOOD COUNT 4.71 10^6/uL (3.72-5.28); RED CELL DISTRIBUTION WIDTH 13.2 % (11.5-14.0); SEGMENTED NEUTROPHILS % (AUTO) 83.5 % (42-78); TOTAL CELLS COUNTED % (AUTO) 100 %; WHITE BLOOD COUNT 15.3 10^3/uL (4.0-10.5)
[2018-11-12] MEDS: NORMAL SALINE 1000 ML 1,000 ML IV PRN (05:33)
[2018-11-12 05:46] LABS: BLOOD UREA NITROGEN 6 mg/dL (7-20); CALCIUM 8.4 mg/dL (8.4-10.2); GLUCOSE 116 mg/dL (75-110); POTASSIUM 4.1 mmol/L (3.6-5.0)
[2018-11-12 05:52] LABS: ANION GAP 5 (5-19); CARBON DIOXIDE 24 mmol/L (22-30); CHLORIDE 110 mmol/L (98-107); SODIUM 138.5 mmol/L (137-145)
[2018-11-12 06:01] LABS: FREE T3 9.94 pg/mL (2.77-5.27); FREE T4 (FREE THYROXINE) 0.37 ng/dL (0.78-2.19)
[2018-11-12 06:20] LABS: THYROID STIMULATING HORMONE < 0.01 uIU/mL (0.47-4.68)
[2018-11-12 06:42] LABS: ARTERIAL BLOOD BASE EXCESS -4.4 mmol/L; ARTERIAL BLOOD HCO3 20.3 mmol/L (20-24); ARTERIAL BLOOD O2 SATURATION 99.5 % (94-98); ARTERIAL BLOOD PCO2 36.4 mmHg (35-45); ARTERIAL BLOOD PH 7.36 (7.35-7.45); ARTERIAL BLOOD PO2 233.9 mmHg (80-100); ARTERIAL BLOOD TOTAL CO2 21.4 mmol/L (21-25)
[2018-11-12 06:43] LABS: ARTERIAL BLOOD FIO2 40%
[2018-11-12] MEDS: AZITHROMYCIN 500 MG in DEXTROSE 5%-WATER 250 ML IV SCH (08:25)
[2018-11-12] MEDS: ALBUTEROL SULFATE 0.083% NEB 2.5 MG/3 ML AMPUL NEB SCH ×3 (08:59→21:25)
[2018-11-12] MEDS: CEFTRIAXONE 1 GM/D5W RTU 1 GM/50 ML RTUPB IV SCH (10:37)
[2018-11-12] MEDS: ENOXAPARIN SODIUM INJ 40 MG/0.4 ML DISP.SYRIN SUBCUT SCH (10:37)
[2018-11-12] MEDS: FAMOTIDINE 20 MG TABLET PO SCH ×2 (10:39→21:30)
[2018-11-12] MEDS ORDERED: OXCARBAZEPINE 1800 MG PO SCH (11:00)
[2018-11-12] MEDS ORDERED: METHIMAZOLE 20 MG PO SCH (11:00)
[2018-11-12] MEDS ORDERED: (PENDING PHARMACY ID) (Propranolol Hcl [Propranolol Hcl Er] 120 MG) PO SCH (11:00)
[2018-11-12] MEDS: METHIMAZOLE 5 MG TABLET PO SCH (12:09)
[2018-11-12] MEDS ORDERED: METHIMAZOLE 5 MG TABLET PO SCH (12:30)
--- NOTE | 2018-11-12 17:07 | PDOC PROGRESS REPORT ---
Subjective Progress Note for:: 11/12/18 Subjective:: seen on rounds this morning- mother at bedside- patient is alert, awake and at baseline per mother. patient asks me how long she has to be here and when she can go home. i went over the CT scan results and need for IV Abx at this time- she states she understands but is not happy she has to stay longer. i answered all questions from family Reason For Visit: PNEUMONIA,HYPOXIA,HYPONATREMIA,SEIZURE DISORDER, Physical Exam Vital Signs: Temp Pulse Resp BP Pulse Ox 99.7 F 96 18 102/43 L 97 11/12/18 11:50 11/12/18 14:09 11/12/18 14:09 11/12/18 11:50 11/12/18 14:09 Intake & Output 11/11/18 11/12/18 11/13/18 06:59 06:59 06:59 Intake Total 2000 1300 Output Total 2150 Balance -150 1300 Weight 69 lb 0.075 oz General appearance: PRESENT: no acute distress Head exam: PRESENT: atraumatic, normocephalic Eye exam: PRESENT: EOMI, PERRLA. ABSENT: scleral icterus Ear exam: PRESENT: normal external ear exam Mouth exam: PRESENT: moist, tongue midline Neck exam: ABSENT: tracheal deviation Respiratory exam: PRESENT: decreased breath sounds - bilaterally- mostly at the bases with rhonchi, symmetrical Cardiovascular exam: PRESENT: +S1, +S2 Pulses: PRESENT: +2 pedal pulses bilateral GI/Abdominal exam: PRESENT: normal bowel sounds, soft. ABSENT: tenderness Extremities exam: ABSENT: pedal edema Neurological exam: PRESENT: alert, awake, oriented to person, other - history of cerebral palsy Skin exam: PRESENT: dry, warm Results Laboratory Results: 11/12/18 05:15 11/12/18 05:15 11/11/18 11/11/18 11/11/18 15:15 15:15 15:15 WBC 9.4 RBC 4.96 Hgb 14.3 Hct 40.6 MCV 82 MCH 28.8 MCHC 35.2 RDW 12.7 Plt Count 315 Seg Neutrophils % 64.9 Lymphocytes % 25.7 Monocytes % 9.0 Eosinophils % 0.2 Basophils % 0.2 Absolute Neutrophils 6.1 Absolute Lymphocytes 2.4 Absolute Monocytes 0.8 Absolute Eosinophils 0.0 Absolute Basophils 0.0 Carbonic Acid HCO3/H2CO3 Ratio ABG pH ABG pCO2 ABG pO2 ABG HCO3 ABG O2 Saturation ABG Base Excess VBG pH VBG pCO2 VBG HCO3 VBG Base Excess FiO2 Sodium 127.2 L Potassium 4.5 Chloride 93 L Carbon Dioxide 27 Anion Gap 7 BUN 10 Creatinine 0.37 L Est GFR ( Amer) > 60 Est GFR (Non-Af Amer) > 60 Glucose 93 Lactic Acid 1.0 Calcium 8.7 Total Bilirubin 0.5 AST 27 ALT 23 Alkaline Phosphatase 72 Total Protein 6.9 Albumin 4.1 TSH Free T4 Free T3 pg/mL Serum HCG, Qual Urine Color Urine Appearance Urine pH Ur Specific [place] Urine Protein Urine Glucose (UA) Urine Ketones Urine Blood Urine Nitrite Ur Leukocyte Esterase Urine WBC (Auto) Urine RBC (Auto) 11/11/18 11/11/18 11/11/18 15:15 15:15 16:17 WBC RBC Hgb Hct MCV MCH MCHC RDW Plt Count Seg Neutrophils % Lymphocytes % Monocytes % Eosinophils % Basophils % Absolute Neutrophils Absolute Lymphocytes Absolute Monocytes Absolute Eosinophils Absolute Basophils Carbonic Acid HCO3/H2CO3 Ratio ABG pH ABG pCO2 ABG pO2 ABG HCO3 ABG O2 Saturation ABG Base Excess VBG pH 7.32 VBG pCO2 52.3 VBG HCO3 26.5 VBG Base Excess -0.4 FiO2 Sodium Potassium Chloride Carbon Dioxide Anion Gap BUN Creatinine Est GFR ( Amer) Est GFR (Non-Af Amer) Glucose Lactic Acid Calcium Total Bilirubin AST ALT Alkaline Phosphatase Total Protein Albumin TSH Free T4 Free T3 pg/mL Serum HCG, Qual NEGATIVE Urine Color YELLOW Urine Appearance SLIGHTLY-CLOUDY Urine pH 7.0 Ur Specific [place] 1.023 Urine Protein 100 H Urine Glucose (UA) NEGATIVE Urine Ketones TRACE H Urine Blood NEGATIVE Urine Nitrite NEGATIVE Ur Leukocyte Esterase NEGATIVE Urine WBC (Auto) 1 Urine RBC (Auto) 1 11/11/18 11/12/18 11/12/18 17:16 05:15 05:15 WBC 15.3 H RBC 4.71 Hgb 13.4 Hct 38.7 MCV 82 MCH 28.5 MCHC 34.7 RDW 13.2 Plt Count 218 Seg Neutrophils % 83.5 H Lymphocytes % 9.5 L Monocytes % 6.8 Eosinophils % 0.0 Basophils % 0.2 Absolute Neutrophils 12.8 H Absolute Lymphocytes 1.5 Absolute Monocytes 1.1 Absolute Eosinophils 0.0 Absolute Basophils 0.0 Carbonic Acid 1.04 L HCO3/H2CO3 Ratio 19:1 ABG pH 7.38 ABG pCO2 34.4 L ABG pO2 469.5 H ABG HCO3 20.1 ABG O2 Saturation 99.9 H ABG Base Excess -4.1 VBG pH VBG pCO2 VBG HCO3 VBG Base Excess FiO2 100% Sodium 138.5 Potassium 4.1 Chloride 110 H Carbon Dioxide 24 Anion Gap 5 BUN 6 L Creatinine 0.32 L Est GFR ( Amer) > 60 Est GFR (Non-Af Amer) > 60 Glucose 116 H Lactic Acid Calcium 8.4 Total Bilirubin AST ALT Alkaline Phosphatase Total Protein Albumin TSH Free T4 Free T3 pg/mL Serum HCG, Qual Urine Color Urine Appearance Urine pH Ur Specific [place] Urine Protein Urine Glucose (UA) Urine Ketones Urine Blood Urine Nitrite Ur Leukocyte Esterase Urine WBC (Auto) Urine RBC (Auto) 11/12/18 11/12/18 05:15 06:25 WBC RBC Hgb Hct MCV MCH MCHC RDW Plt Count Seg Neutrophils % Lymphocytes % Monocytes % Eosinophils % Basophils % Absolute Neutrophils Absolute Lymphocytes Absolute Monocytes Absolute Eosinophils Absolute Basophils Carbonic Acid 1.10 HCO3/H2CO3 Ratio 18:1 ABG pH 7.36 ABG pCO2 36.4 ABG pO2 233.9 H ABG HCO3 20.3 ABG O2 Saturation 99.5 H ABG Base Excess -4.4 VBG pH VBG pCO2 VBG HCO3 VBG Base Excess FiO2 40% Sodium Potassium Chloride Carbon Dioxide Anion Gap BUN Creatinine Est GFR ( Amer) Est GFR (Non-Af Amer) Glucose Lactic Acid Calcium Total Bilirubin AST ALT Alkaline Phosphatase Total Protein Albumin TSH < 0.01 L Free T4 0.37 L Free T3 pg/mL 9.94 H Serum HCG, Qual Urine Color Urine Appearance Urine pH Ur Specific [place] Urine Protein Urine Glucose (UA) Urine Ketones Urine Blood Urine Nitrite Ur Leukocyte Esterase Urine WBC (Auto) Urine RBC (Auto) Impressions: Chest CT 11/11/18 00:00 IMPRESSION: Bilateral pneumonia with more extensive consolidation in the left lung. Shuntogram 11/11/18 15:15 IMPRESSION: Catheter as described. Refer to operative record for further information. Chest X-Ray 11/11/18 15:17 IMPRESSION: Left lower lobe pneumonia. Assessment & Plan - Diagnosis (1) Bilateral pneumonia Is this a current diagnosis for this admission?: Yes (2) Acute respiratory failure with hypoxia Is this a current diagnosis for this admission?: Yes (3) Graves disease Is this a current diagnosis for this admission?: Yes (4) Cerebral palsy Qualifiers: Cerebral palsy type: unspecified type Qualified Code(s): G80.9 - Cerebral palsy, unspecified Is this a current diagnosis for this admission?: Yes (5) Seizure disorder Is this a current diagnosis for this admission?: Yes (6) Left lower lobe consolidation Is this a current diagnosis for this admission?: Yes - Plan Summary Plan Summary: Acute respiratory failure with hypoxia-resolved- on Room air- likely her respiratory was a combination of post-ictal state and use of Versed. She is doing much better now. On arrival she had saturation around 82% on room air and hence placed on BiPAP initially. Bilateral lower lobe pneumonia with left-sided consolidation-ordered CT chest yesterday which revealed a worse pneumonia-now it is bilateral with left-sided consolidation. She is on Rocephin and azithromycin for community-acquired pneumonia -her WBC trended up with IV fluids and hydration-if her WBC trends up higher than we may need to escalate her antibiotics broader coverage. Continue with breathing treatments. Seizure-stable and back on her medications-had seizure on 11/11/18 afternoon b rought to the ER for evaluation. As per mom she was not there but her sister believes it was less than 15 minutes in duration. She has a history of seizures and follows up with Dr. Boswell in [place]. Mom is asked not to contact neurology at this time since we feel that her seizure was secondary to her pneumonia which she also had in 2014. We have restarted her home medications Seizure disorder-see plan above Graves' disease-we will continue with her methimazole. Will check TSH in T3/T4. Disposition-likely she will stay here for a few more days for IV antibiotics until her status improves.
[2018-11-12] MEDS ORDERED: PROPRANOLOL HCL 120 MG PO SCH (18:00)
[2018-11-12] MEDS ORDERED: OXCARBAZEPINE 600 MG PO SCH (18:00)
[2018-11-12] MEDS ORDERED: Oxcarbazepine [Oxtellar Xr] 300 MG PO SCH (18:00)
[2018-11-12] MEDS ORDERED: OXCARBAZEPINE 300 MG PO SCH (22:00)
[2018-11-13 06:48] LABS: HEMATOCRIT 39.6 % (36.0-47.0); HEMOGLOBIN 13.5 g/dL (12.0-15.5); MEAN CORPUSCULAR HEMOGLOBIN 28.8 pg (27.0-33.4); MEAN CORPUSCULAR VOLUME 85 fl (80-97); PLATELET COUNT 199 10^3/uL (150-450); RED BLOOD COUNT 4.68 10^6/uL (3.72-5.28); RED CELL DISTRIBUTION WIDTH 13.7 % (11.5-14.0); WHITE BLOOD COUNT 8.1 10^3/uL (4.0-10.5)
[2018-11-13] MEDS: ALBUTEROL SULFATE 0.083% NEB 2.5 MG/3 ML AMPUL NEB SCH ×2 (08:56→14:16)
[2018-11-13] MEDS: METHIMAZOLE 5 MG TABLET PO SCH (08:57)
[2018-11-13] MEDS: AZITHROMYCIN 500 MG in DEXTROSE 5%-WATER 250 ML IV SCH (08:58)
[2018-11-13] MEDS: FAMOTIDINE 20 MG TABLET PO SCH (10:36)
[2018-11-13] MEDS: CEFTRIAXONE 1 GM/D5W RTU 1 GM/50 ML RTUPB IV SCH (10:38)
[2018-11-13] MEDS: ENOXAPARIN SODIUM INJ 40 MG/0.4 ML DISP.SYRIN SUBCUT SCH (10:44)
[2018-11-13 14:43] VITALS: BP 112/67
[2018-11-13] MEDS ORDERED: GUAIFENESIN 600 MG TABLET.SA PO SCH (22:00)
--- NOTE | 2018-11-15 07:24 | DISCHARGE SUMMARY E ---
Discharge Summary NAME: NADEGE NEWMAN : 1995 AGE: 23Y ADMITTED: 11/11/2018 DISCHARGED: 11/13/2018 CODE STATUS: Full code. PRIMARY CARE PROVIDER: Jordi Stephens MD DISCHARGE DIAGNOSES: 1. Bilateral pneumonia, most likely pneumococcal. 2. Acute respiratory failure with hypoxia secondary to number one, which has resolved. 3. Graves disease. 4. Cerebral palsy. 5. Seizure disorder. DISCHARGE MEDICATIONS: 1. Mucinex 600 mg p.o. q.12 hours, 10 tablets with 0 refills. 2. Ceftin 500 mg p.o. b.i.d., 14 tablets with 0 refills. 3. Azithromycin 500 mg pack. 4. Propranolol ER 120 mg p.o. daily. 5. Oxtellar XR 300 mg p.o. q. hour sleep. 6. Oxtellar XR 1800 mg p.o. daily. 7. Tapazole 20 mg p.o. daily. DIET: As tolerated. ACTIVITY: As tolerated. CONDITION: Good. DIAGNOSTIC Hematology taken on 11/13/2018. WBC: hemoglobin 13.5, hematocrit 39.5. Platelet count is 199,000. Coagulation on 11/11/2018: PT is 50.5, INR is 1.17. ABG obtained on 11/12/2018: pH is 7.36. PC02 is 36.4. PO2 is 233. Bicarb is 20.5. O2 saturation is 99.5 obtained on 40% FiO2. Chemistry panel on 11/12/2018: Sodium 138, potassium 4.1, chloride 110, BUN 6, creatinine 0.32. Glucose 116. Lactic acid is 1. Calcium is 8.4. Bilirubin is 0.5. AST 27. ALT 23, alkaline phosphatase 72, total protein 6.9, albumin 4.1. Urinalysis obtained on 11/11/2018: Color yellow, appearance was cloudy protein 100, leukocytes and ketones trace, occult blood negative. Nitrite negative. Bilirubin negative. Urobilinogen is 2. Leukocyte esterase is negative. WBCs 1. RBCs 1. Mucous rare. Ascorbic acid is 40. Microbiology blood cultures taken on 11/11/2018 reveal no growth. Urine culture taken on 11/11/2018 revealed no growth. Chest CT obtained on 11/11/2018 reveals bilateral pneumonia especially within the left lung. Chest x-ray obtained on 11/11/2018 reveals a left lower lobe pneumonia. PHYSICAL EXAMINATION: General: On examination the patient is a 23-year-old female, developmentally delayed but absolutely pleasant. She does not appear to be distressed. Vital Signs: Temperature is 97.6, pulse 89, respirations 16, blood pressure is 112/67, oxygen saturation 97% on room air. Skin: Warm, dry, no rash. She is not diaphoretic. HEENT: Mucous membranes are moist. CVS: Heart is regular. Chest: Clear, symmetrical, a little diminished at the bases but good air movement. Strong cough. Extremities: No edema. Psychiatric: The patient is absolutely delightful. HISTORY OF PRESENT ILLNESS: The patient is a 23-year-old female with a past medical history of cerebral palsy. The patient presented to the Emergency Department with chief complaint of a possible seizure. The patient was unable to provide any history and therefore history is obtained from the mother. According to the mother the patient normally has seizures for which she recovers from very quickly. The mother stated that the patient's sister was at home and called EMS and she was brought to the Emergency Department. The mother stated the seizure was short in nature and not sure how long it was altogether. The EMS gave the patient some Versed, therefore she was very groggy by the time she got to the hospital. At home the patient did not have any shortness of breath, no fevers, no chills; but has had a runny nose. According to the mother, the patient had a very similar episode in 2014 and at that time was diagnosed with pneumonia. The patient has not missed any of her seizure medications as she is absolutely adherent to this as the family administers these. The patient follows up with her neurologist in [place], Dr. Boswell. The mother contacted the neurologist, whose advice was to treat the patient for pneumonia that was present on imaging. The patient did not have a prolonged post ictal state and was referred to the hospital for admission and management. HOSPITAL COURSE: The patient was admitted to [facility]. The patient was placed on community acquired pneumonia coverage. The patient made a very quick recovery and began producing sputum. She was cooperative with pulmonary toileting. The patient had no episodes of vomiting nor diarrhea, no further seizure activity. Mother was present at bedside, active in the patient's care. The patient is absolutely eager for discharge. The patient is able to ambulate without issue and appears to be completely at baseline. The patient has been able to tolerate being on room air and mother is in agreement with this plan. DISCHARGE PLAN: 1. The patient is to follow up with her neurologist at [place] as already scheduled in 2 to 4 weeks for hospital followup. 2. Time spent on this discharge, including plan, physical examination, patient education, review of records, family meeting is 25 minutes. DICTATING PHYSICIAN: SORAYA SALINAS NP [id number] PHY#: [id number] ID: [id number] JOB#: [id number] ACCT: [id number] cc:ROMMEL WATKINS M.D., MICHAEL NP > MTDD
== END 2018-11-13 14:56 | disposition home or self-care (01) | DRG 193 ==
LOC: ER 14:52 → EH 16:55 → 3S 18:59
PROVIDERS: ADMIT Internal Medicine; ATTEND Internal Medicine
DX: J18.1 Lobar pneumonia, unspecified organism (principal); J96.01 Acute respiratory failure with hypoxia; E87.1 Hypo-osmolality and hyponatremia; G40.909 Epilepsy, unspecified, not intractable, without status epilepticus; G80.9 Cerebral palsy, unspecified; T68.XXXA Hypothermia, initial encounter; E05.00 Thyrotoxicosis with diffuse goiter without thyrotoxic crisis or storm; Z98.2 Presence of cerebrospinal fluid drainage device
CPT/HCPCS: 36415; 51702; 71045; 71250; 75809; 80048; 80053; 81001; 81025; 82803; 83605; 84439; 84443; 84481; 84703; 85025; 85027; 85610; 87040; 87086; 93005; 93010; 94640; 94660; 94667; 94799; 96361; 96365; 96375; 99291; J0456; J0696; J1650; J2405; J2543; J3490; J7030; J7060; J7620

== ENCOUNTER 2019-06-12 23:31 | Emergency (ER) | payer OTHER, MEDICAID ==
[2019-06-13] MEDS ORDERED: RINGERS SOLUTION,LACTATED 1,000 ML IV ONE (00:27)
--- NOTE | 2019-06-13 00:32 | ER Document Report ---
ED General - General Stated Complaint: SEIZURE Time Seen by Provider: 06/13/19 00:07 Primary Care Provider: NICHOLAS PEREZ JR, MD [NO LOCAL MD] - Follow up as needed Notes: 31-year-old old female with a history of Graves' disease, cerebral palsy and partial seizures that progressed to generalized seizures presents emergency department via EMS after a 15-minute seizure. Mother states that the patient started swallowing, her eyes got bigger and then she started having shaking on her left hand side. This is typical of her generalized seizures. Mother states that she was postictal longer than usual however she is recovered better than u sual. Mother also notes that her lips were pale during the seizure. Patient did not receive any Valium or Versed to help terminate the seizure early. Mother admits the patient has a history of seizures and when they last 15 minutes or happen more often than usual it usually due to an underlying i nfection or a thyroid dysfunction. Mother is concerned that the patient's Graves' disease may be worsening as she has been having weight loss recently, increased sensitivity to food with vomiting, gagging and discomfort several hours after eating spicy foods and greasy foods. Patient has not had any recent medication changes. TRAVEL OUTSIDE OF THE [place] IN LAST 30 DAYS: No - Related Data Allergies/Adverse Reactions: No Known Allergies Allergy (Verified 06/06/17 12:19) Past Medical History - General Information source: Patient, Parent - Social History Smoking Status: Never Smoker Chew tobacco use (# tins/day): No Frequency of alcohol use: None Drug Abuse: None Family History: Reviewed & Not Pertinent Neurological Medical History: Reports: Hx Seizures - 2006 shunt revision Endocrine Medical History: Reports: Hx Hyperthyroidism Renal/ Medical History: Denies: Hx Peritoneal Dialysis Musculoskeletal Medical History: Reports Hx Muscle Spasm Past Surgical History: Reports: Hx Abdominal Surgery - bowl resection, Hx Bowel Surgery - Bowel resection for necrotizing enterocolitis, Hx Neurologic Surgery - [employer] shunt with 2 revisions, Hx Thyroid Surgery, Hx Vascular Surgery - AV shunt with revision in - Immunizations Immunizations up to date: Yes Hx Diphtheria, Pertussis, Tetanus Vaccination: Yes Review of Systems - Review of Systems Constitutional: See HPI, Weight loss EENT: See HPI - Eyes opening light as part of her seizure program. Cardiovascular: No symptoms reported Respiratory: No symptoms reported Gastrointestinal: See HPI Neurological/Psychological: See HPI -: Yes All other systems reviewed and negative Physical Exam - Vital signs Vitals: Pulse Ox 93 06/12/19 23:38 - Notes Notes: GENERAL: Sleeping, wakes up easily, answers questions and then goes back to sleep. No acute distress. HEAD: Normocephalic, atraumatic EYES: Pupils equal, round and reactive to light, extraocular movements intact. ENT: Oral mucosa moist, tongue midline. NECK: Full range of motion, supple, trachea midline. Enlarged sternocleidomastoid muscles bilaterally. LUNGS: Clear to auscultation bilaterally, no wheezes, rales or rhonchi, no respiratory distress. HEART: Regular rate and rhythm, no murmurs, gallops, rubs. ABDOMEN: Soft, nontender, nondistended, bowel sounds present in all 4 quadrants. EXTREMITIES: Moves all 4 extremities spontaneously, no edema, radial and dorsalis pedis pulses 2/4 bilaterally. No cyanosis. NEUROLOGICAL: Alert and oriented x3, normal speech, no facial droop, biceps and patellar DTRs 2+ on the right, 3+ on the left, mother states the clonus is base line. PSYCH: Normal mood, normal affect. SKIN: Warm, Dry, normal turgor, redness and thickening of the skin on the anterior aspect of the left sewell, mother states this is been there for several years and is unchanged, no blistering or sloughing, no increased warmth, no lymphangitic streaking. Multiple scars noted across her neck and abdomen consistent with surgical history and history of prematurity, NEC, healed tracheostomy etc. Course - Re-evaluation Re-evalutation: 06/13/19 05:23 CBC does not show any leukocytosis, slightly elevated hemoglobin at 15.7, INR slightly prolonged, venous blood gas unremarkable, lactic acid normal, chemistries grossly unremarkable, lipase normal, test negative, urinalysis shows trace leukocyte esterase, chest x-ray shows ill-defined right- sided opacity which is likely developing pneumonia in the setting of her increased seizure and her fever. Abdominal ultrasound unremarkable. This was measured was ordered because the mother noted that she is having decreasing tolerance for spicy and sometimes greasy foods although it usually comes 6 to 12 hours after the meal rather than immediately afterwards. There is no evidence of biliary disease on this ultrasound. Thyroid function studies are within their normal range for this patient over the past 2 years. Discussed these findings with mother and she agrees with discharged home on oral antibiotics in the form of Augmentin after receiving Rocephin through the IV. She was given a copy of her daughter's thyroid function studies today and they will discuss them with her lean leader as an outpatient. - Vital Signs Vital signs: Temp Pulse Resp BP Pulse Ox 25 H 120/61 96 06/13/19 04:01 06/13/19 04:01 06/13/19 04:01 - Laboratory Result Diagrams: 06/13/19 01:07 06/13/19 01:07 Laboratory results interpreted by me: 06/13/19 06/13/19 06/13/19 01:07 01:07 01:07 RBC 5.42 H Hgb 15.7 H Creatinine 0.39 L TSH < 0.01 L Free T4 0.38 L Free T3 pg/mL 10.50 H Urine Urobilinogen Ur Leukocyte Esterase 06/13/19 01:37 RBC Hgb Creatinine TSH Free T4 Free T3 pg/mL Urine Urobilinogen 4.0 H Ur Leukocyte Esterase TRACE H - EKG Interpretation by Me Additional EKG results interpreted by me: 06/13/19 05:24 EKG shows sinus rhythm at a rate of 95, normal axis, normal intervals, no ST segment elevations or depressions, no T wave inversions per my interpretation. Discharge - Discharge Clinical Impression: Graves disease, Seizure disorder Pneumonia Qualifiers: Pneumonia type: due to unspecified organism Laterality: right Lung location: middle lobe of lung Qualified Code(s): J18.1 - Lobar pneumonia, unspecified organism Cerebral palsy Qualifiers: Cerebral palsy type: unspecified type Qualified Code(s): G80.9 - Cerebral palsy, unspecified Condition: Stable Disposition: HOME, SELF-CARE Additional Instructions: Pneumonia Your examination indicates that you have pneumonia. This is an infection of the lung tissue, usually caused by bacteria or a virus. Symptoms include cough, fever, shaking chills, chest pain, shortness of breath, and coughing up bloody sputum. Treatment for bacterial pneumonia includes rest, antibiotics for 10 to 14 days, increasing your clear liquid intake, a cool mist humidifier at your bedside, and fever medication. Often, a repeat chest X-ray is performed in a few weeks--even if you feel better--to ascertain whether the infection has completely resolved and no underlying lung problem is present. You should call the physician if you develop persistent vomiting, high fever that does not respond to fever medication, increasing shortness of breath, confusion, or lethargy. Also, failure to improve within two to three days is an indication for re-examination. Prescriptions: Amox Tr/Potassium Clavulanate [Augmentin 875-125 Tablet] 1 tab PO BID 7 Days tablet Referrals: NICHOLAS PEREZ JR, MD [NO LOCAL MD] - Follow up as needed
[2019-06-13 01:31] LABS: ABSOLUTE LYMPHOCYTES (AUTO) 1.8 10^3/uL (0.5-4.7); ABSOLUTE MONOCYTES (AUTO) 0.6 10^3/uL (0.1-1.4); ABSOLUTE NEUT (AUTO) 4.7 10^3/uL (1.7-8.2); BASOPHILS % (AUTO) 0.2 % (0-2); EOSINOPHILS % (AUTO) 0.4 % (0-6); HEMATOCRIT 45.6 % (36.0-47.0); HEMOGLOBIN 15.7 g/dL (12.0-15.5); LYMPHOCYTES % (AUTO) 25.1 % (13-45); MEAN CORPUSCULAR HGB CONC 34.5 g/dL (32.0-36.0); MEAN CORPUSCULAR VOLUME 84 fl (80-97); MONOCYTES % (AUTO) 7.9 % (3-13); PLATELET COUNT 202 10^3/uL (150-450); RED BLOOD COUNT 5.42 10^6/uL (3.72-5.28); RED CELL DISTRIBUTION WIDTH 12.7 % (11.5-14.0); SEGMENTED NEUTROPHILS % (AUTO) 66.4 % (42-78); TOTAL CELLS COUNTED % (AUTO) 100 %
[2019-06-13 01:53] LABS: ALBUMIN 4.1 g/dL (3.5-5.0); ALKALINE PHOSPHATASE 63 U/L (38-126); ANION GAP 10 (5-19); ASPARTATE AMINO TRANSFERASE 31 U/L (14-36); BILIRUBIN,DIRECT 0.4 mg/dL (0.0-0.4); BILIRUBIN,TOTAL 0.5 mg/dL (0.2-1.3); BLOOD UREA NITROGEN 14 mg/dL (7-20); CALCIUM 9.6 mg/dL (8.4-10.2); CARBON DIOXIDE 22 mmol/L (22-30); CHLORIDE 106 mmol/L (98-107); GLUCOSE 106 mg/dL (75-110); POTASSIUM 4.5 mmol/L (3.6-5.0); TOTAL PROTEIN 6.7 g/dL (6.3-8.2)
[2019-06-13 02:09] LABS: FREE T4 (FREE THYROXINE) 0.38 ng/dL (0.78-2.19)
[2019-06-13 02:23] LABS: THYROID STIMULATING HORMONE < 0.01 uIU/mL (0.47-4.68)
[2019-06-13 02:40] LABS: VENOUS BLOOD BASE EXCESS 1.9 mmol/L; VENOUS BLOOD HCO3 27.1 mmol/L (20-32); VENOUS BLOOD PCO2 44.3 mmHg (35-63); VENOUS BLOOD PH 7.41 (7.30-7.42)
--- NOTE | 2019-06-13 02:43 | RADIOLOGY REPORT (SQ) ---
CLINICAL HISTORY: seizure, h/o PNA with incresaed sz COMPARISON: None. TECHNIQUE: US ABDOMEN LIMITED on 06/13/2019 12:27 AM CDT FINDINGS: Liver is normal in echotexture. Portal vein is patent. Gallbladder is incompletely distended without definite gallstones or pericholecystic fluid. Gallbladder wall size is borderline. Common bile duct measures 2 mm. Right kidney measures 9.4 cm without hydronephrosis. IMPRESSION: Essentially unremarkable study.
[2019-06-13] MEDS ORDERED: ACETAMINOPHEN 325 MG TABLET PO ONE (02:45)
[2019-06-13 02:50] LABS: INTERNATIONAL RATION (INR) 1.13; PROTHROMBIN TIME 14.6 SEC (11.4-15.4)
[2019-06-13 03:26] LABS: APPEARANCE,URINE CLOUDY; BILIRUBIN,URINE NEGATIVE (NEGATIVE); COLOR,URINE YELLOW; GLUCOSE, URINE NEGATIVE (NEGATIVE); KETONES,URINE NEGATIVE (NEGATIVE); LEUKOCYTE ESTERASE,URINE TRACE (NEGATIVE); NITRITE,URINE NEGATIVE (NEGATIVE); PROTEIN,URINE NEGATIVE (NEGATIVE); URINE SPECIFIC GRAVITY 1.018
[2019-06-13 03:54] LABS: ADD MANUAL MICROSCOPIC YES; BACTERIA,URINE 1+ /HPF
[2019-06-13 03:55] LABS: AMORPHOUS SEDIMENT,UR 3+
[2019-06-13] MEDS ORDERED: CEFTRIAXONE 1 GM/D5W RTU 1 GM/50 ML RTUPB IV ONE (04:26)
--- NOTE | 2019-06-13 04:55 | RADIOLOGY REPORT (SQ) ---
EXAM DESCRIPTION: XR CHEST 1 VIEW COMPLETED DATE/TME: 06/13/2019 00:28 CLINICAL HISTORY: seizure, h/o PNA with incresaed sz COMPARISON: 11/11/2018 FINDINGS: Single frontal view of the chest. Respiratory motion artifact. Cardiomediastinal silhouette: Normal size and contour. Lungs: Minimal ill-defined right mid lung airspace opacity. No pneumothorax or large effusion. Leads overlie the chest. Bones: No acute osseous abnormality. Upper abdomen: No abnormality identified. IMPRESSION: 1. Minimal ill-defined right mid lung airspace opacity may represent developing pneumonia/pneumonitis.
[2019-06-13] MEDS ORDERED: CEFTRIAXONE INJ 1000 MG VIAL IV ONE (05:01)
[2019-06-13 05:52] VITALS: BP 91/59
--- NOTE | 2019-06-13 08:06 | EKG REPORT ---
SEVERITY:- NORMAL ECG - SINUS RHYTHM : Confirmed by: Ramesh Velasco MD 13-Jun-2019 08:06:23
== END 2019-06-13 05:59 | disposition home or self-care (01) ==
LOC: ER 23:31
DX: J18.1 Lobar pneumonia, unspecified organism (principal); G40.909 Epilepsy, unspecified, not intractable, without status epilepticus; E05.00 Thyrotoxicosis with diffuse goiter without thyrotoxic crisis or storm; G80.9 Cerebral palsy, unspecified
CPT/HCPCS: 93005; 99285; 96361; 96365; 36415; 87040; 87086; 84439; 83690; 84443; 84703; 85025; 85610; 87088; 80053; 81001; 84484; 87186; 84481; 82803; 83605; 71045; 76705; 93010; J0696; J7120

== ENCOUNTER 2019-08-21 07:38 | Emergency (ER) | payer OTHER, MEDICAID ==
[2019-08-21 09:13] LABS: ABSOLUTE LYMPHOCYTES (AUTO) 1.5 10^3/uL (0.5-4.7); ABSOLUTE MONOCYTES (AUTO) 0.5 10^3/uL (0.1-1.4); ABSOLUTE NEUT (AUTO) 7.9 10^3/uL (1.7-8.2); BASOPHILS % (AUTO) 0.1 % (0-2); HEMATOCRIT 45.2 % (36.0-47.0); HEMOGLOBIN 15.6 g/dL (12.0-15.5); LYMPHOCYTES % (AUTO) 14.9 % (13-45); MEAN CORPUSCULAR HEMOGLOBIN 29.3 pg (27.0-33.4); MEAN CORPUSCULAR HGB CONC 34.5 g/dL (32.0-36.0); MEAN CORPUSCULAR VOLUME 85 fl (80-97); MONOCYTES % (AUTO) 4.7 % (3-13); PLATELET COUNT 230 10^3/uL (150-450); RED BLOOD COUNT 5.32 10^6/uL (3.72-5.28); RED CELL DISTRIBUTION WIDTH 13.1 % (11.5-14.0); SEGMENTED NEUTROPHILS % (AUTO) 80.3 % (42-78); TOTAL CELLS COUNTED % (AUTO) 100 %; WHITE BLOOD COUNT 9.8 10^3/uL (4.0-10.5)
[2019-08-21] MEDS ORDERED: NORMAL SALINE 1000 ML 1,000 ML IV ONE (09:13)
[2019-08-21 09:37] LABS: APPEARANCE,URINE SLIGHTLY-CLOUDY; BILIRUBIN,URINE NEGATIVE (NEGATIVE); COLOR,URINE YELLOW; GLUCOSE, URINE NEGATIVE (NEGATIVE); KETONES,URINE NEGATIVE (NEGATIVE); LEUKOCYTE ESTERASE,URINE TRACE (NEGATIVE); NITRITE,URINE NEGATIVE (NEGATIVE); PROTEIN,URINE NEGATIVE (NEGATIVE); URINE SPECIFIC GRAVITY 1.019; UROBILINOGEN,URINE NEGATIVE mg/dL (<2.0)
[2019-08-21 09:48] LABS: ALBUMIN 4.4 g/dL (3.5-5.0); ALKALINE PHOSPHATASE 65 U/L (38-126); ANION GAP 9 (5-19); ASPARTATE AMINO TRANSFERASE 18 U/L (14-36); BILIRUBIN,DIRECT 0.2 mg/dL (0.0-0.4); BILIRUBIN,TOTAL 0.4 mg/dL (0.2-1.3); BLOOD UREA NITROGEN 14 mg/dL (7-20); CALCIUM 9.3 mg/dL (8.4-10.2); CARBON DIOXIDE 23 mmol/L (22-30); CHLORIDE 105 mmol/L (98-107); GLUCOSE 110 mg/dL (75-110); POTASSIUM 4.8 mmol/L (3.6-5.0); TOTAL PROTEIN 7.1 g/dL (6.3-8.2)
--- NOTE | 2019-08-21 09:52 | RADIOLOGY REPORT (SQ) ---
EXAM DESCRIPTION: CT HEAD WITHOUT COMPLETED DATE/TIME: 08/21/2019 9:28 am REASON FOR STUDY: headache, nausea, "acting groggy" COMPARISON: 08/25/2017 TECHNIQUE: Axial images acquired through the brain without intravenous contrast. Images reviewed wi th bone, brain and subdural windows. Additional sagittal and coronal reconstructions were generated. Images stored on PACS. All CT scanners at this facility use dose modulation, iterative reconstruction, and/or weight based d osing when appropriate to reduce radiation dose to as low as reasonably achievable (ALARA). [facility]: Dose Right [facility]: CareDose [facility]: Dose Right [facility]: Teradose 4D [facility]: [employer] RADIATION DOSE: CT Rad equipment meets quality standard of care and radiation dose reduction techniq ues were employed. CTDIvol: 53.2 mGy. DLP: 1044 mGy-cm. mGy. LIMITATIONS: None. FINDINGS: VENTRICLES: Stable caliber and configuration of the lateral ventricles with a right occipi rajiv approach intraventricular shunt catheter positioned in the frontal horn of the right lateral vent ricle. CEREBRUM: No masses. No hemorrhage. No midline shift. No evidence for acute infarction. Stable rig ht hemispheric encephalomalacia. CEREBELLUM: No masses. No hemorrhage. No alteration of density. No evidence for acute infarction. EXTRAAXIAL SPACES: No fluid collections. No masses. ORBITS AND GLOBE: No intra- or extraconal masses. Normal contour of globe without masses. CALVARIUM: No fracture. PARANASAL SINUSES: No fluid or mucosal thickening. SOFT TISSUES: No mass or hematoma. OTHER: No other significant finding. IMPRESSION: 1. Stable caliber and configuration of the lateral ventricles with a right occipital ayesha kearns intraventricular shunt catheter positioned in the frontal horn of the right lateral ventricle. 2. Stable right hemispheric encephalomalacia. EVIDENCE OF ACUTE STROKE: NO. COMMENT: Quality ID # [id number]: Final reports with documentation of one or more dose reduction techniques (e.g., Automated exposure control, adjustment of the mA and/or kV according to patient size, use of iterative reconstruction technique) TECHNICAL DOCUMENTATION: JOB ID: [id number]- All Rights Reserved Reading location - IP/workstation name: [email or web address]
--- NOTE | 2019-08-21 09:55 | RADIOLOGY REPORT (SQ) ---
EXAM DESCRIPTION: CHEST 2 VIEWS COMPLETED DATE/TIME: 08/21/2019 9:36 am REASON FOR STUDY: abd pain COMPARISON: 06/13/2019 EXAM PARAMETERS: NUMBER OF VIEWS: two views TECHNIQUE: Digital Frontal and Lateral radiographic views of the chest acquired. RADIATION DOSE: NA LIMITATIONS: none FINDINGS: LUNGS AND PLEURA: No opacities, masses or pneumothorax. No pleural effusion. MEDIASTINUM AND HILAR STRUCTURES: No masses or contour abnormalities. HEART AND VASCULAR STRUCTURES: Heart normal size. No evidence for failure. BONES: No acute findings. HARDWARE: None in the chest. OTHER: Shunt catheter tubing projects over the right neck and hemithorax. IMPRESSION: No acute abnormality of the lungs. No focal airspace opacity. Shunt catheter tubing pr ojects over the right neck and hemithorax without evidence of kinking or discontinuity. TECHNICAL DOCUMENTATION: JOB ID: [id number] [employer]- All Rights Reserved Reading location - IP/workstation name: [email or web address]
--- NOTE | 2019-08-21 12:55 | RADIOLOGY REPORT (SQ) ---
EXAM DESCRIPTION: CT ABD/PELVIS NO ORAL OR IV COMPLETED DATE/TIME: 08/21/2019 12:41 pm REASON FOR STUDY: lower abd pain COMPARISON: None. TECHNIQUE: CT scan of the abdomen and pelvis performed without intravenous or oral contrast. Images reviewed with lung, soft tissue, and bone windows. Reconstructed coronal and sagittal MPR images revi ewed. All images stored on PACS. All CT scanners at this facility use dose modulation, iterative reconstruction, and/or weight based d osing when appropriate to reduce radiation dose to as low as reasonably achievable (ALARA). [facility]: Dose Right [facility]: CareDose [facility]: Dose Right [facility]: Teradose 4D [facility]: Smart [employer] RADIATION DOSE: CT Rad equipment meets quality standard of care and radiation dose reduction techniq ues were employed. CTDIvol: 5.8 mGy. DLP: 295 mGy-cm.mGy. LIMITATIONS: None. FINDINGS: LOWER CHEST: No significant findings. No nodules or infiltrates. NON-CONTRASTED LIVER, SPLEEN, ADRENALS: Evaluation limited by lack of IV contrast. No identified sign ificant masses. PANCREAS: No masses. No peripancreatic inflammatory changes. GALLBLADDER: No identified stones by CT criteria. No inflammatory changes to suggest cholecystitis. RIGHT KIDNEY AND URETER: No suspicious masses. Assessment limited by lack of IV contrast. No signif icant calcifications. No hydronephrosis or hydroureter. LEFT KIDNEY AND URETER: No suspicious masses. Assessment limited by lack of IV contrast. No signifi cant calcifications. No hydronephrosis or hydroureter. AORTA AND RETROPERITONEUM: No aneurysm. No retroperitoneal masses or adenopathy. BOWEL AND PERITONEAL CAVITY: No obvious masses or inflammatory changes. No free fluid. APPENDIX: Not clearly visualized. PELVIS, BLADDER, AND ABDOMINAL WALL:No abnormal masses. There is an approximately 3.0 cm fluid atten uation lesion of the right ovary. No free fluid. Bladder normal. BONES: No significant findings. OTHER: No other significant finding. IMPRESSION: 1. No definite noncontrast CT findings to explain lower abdominal pain. 2. The appendix is not clearly visualized. 3. There is an approximately 3.0 cm fluid attenuation lesion of the right ovary, likely a functiona l cyst or follicle. Ultrasound may be used to further evaluate if desired and referable symptoms are present. COMMENT: Quality ID # [id number]: Final reports with documentation of one or more dose reduction techniques (e.g., Automated exposure control, adjustment of the mA and/or kV according to patient size, use of iterative reconstruction technique) TECHNICAL DOCUMENTATION: JOB ID: [id number] [employer]- All Rights Reserved Reading location - IP/workstation name: [email or web address]
--- NOTE | 2019-08-21 14:02 | ER Document Report ---
ED General - General Chief Complaint: Abdominal Pain Stated Complaint: STOMACH PAIN Time Seen by Provider: 08/21/19 09:00 Mode of Arrival: Ambulatory Information source: Patient TRAVEL OUTSIDE OF THE [place] IN LAST 30 DAYS: No - HPI Notes: Patient presents with abdominal pain. Patient is also had headache. Patient is also had some cough. Patient has a history of cerebral palsy and is somewhat of a difficult historian. However mom is in the room and helps with history. Child has had some nausea and one episode of vomiting. No significant problems with stool or urine. Patient is not able to adequately characterize the pain. It appears to be diffuse about the abdomen mild to moderate. Nothing known that makes it better or worse. No known radiation of the pain. There is been no rashes or fevers. - Related Data Allergies/Adverse Reactions: No Known Allergies Allergy (Verified 08/21/19 07:57) Past Medical History - General Information source: Patient, Parent - Social History Smoking Status: Never Smoker Chew tobacco use (# tins/day): No Frequency of alcohol use: None Drug Abuse: None Family History: Reviewed & Not Pertinent Patient has suicidal ideation: No Patient has homicidal ideation: No Neurological Medical History: Reports: Hx Seizures - 2006 shunt revision Endocrine Medical History: Reports: Hx Hyperthyroidism Renal/ Medical History: Denies: Hx Peritoneal Dialysis Musculoskeletal Medical History: Reports Hx Muscle Spasm Past Surgical History: Reports: Hx Abdominal Surgery - bowl resection, Hx Bowel Surgery - Bowel resection for necrotizing enterocolitis, Hx Neurologic Surgery - RESIDENT INSPECTOR shunt with 2 revisions, Hx Thyroid Surgery, Hx Vascular Surgery - AV shunt with revision in 06 - Immunizations Immunizations up to date: Yes Hx Diphtheria, Pertussis, Tetanus Vaccination: Yes Review of Systems - Review of Systems Constitutional: denies: Chills, Fever Cardiovascular: denies: Chest pain, Palpitations Respiratory: Cough. denies: Stridor Gastrointestinal: Abdominal pain, Nausea -: Yes All other systems reviewed and negative Physical Exam - Vital signs Vitals: Pulse Resp BP Pulse Ox 59 L 20 127/69 H 100 08/21/19 07:47 08/21/19 07:47 08/21/19 07:47 08/21/19 07:47 Interpretation: Normal - General General appearance: Appears well, Alert - HEENT Head: Normocephalic, Atraumatic Eyes: Normal Pupils: PERRL - Respiratory Respiratory status: No respiratory distress Chest status: Nontender Breath sounds: Normal Chest palpation: Normal - Cardiovascular Rhythm: Regular Heart sounds: Normal auscultation Murmur: No - Abdominal Inspection: Normal Distension: No distension Bowel sounds: Normal Tenderness: Tender - Mild diffuse tenderness to palpation. No surgical abdominal signs. Organomegaly: No organomegaly - Back Back: Normal, Nontender - Extremities General upper extremity: Normal inspection, Nontender, Normal color, Normal ROM, Normal temperature General lower extremity: Normal inspection, Nontender, Normal color, Normal ROM, Normal temperature, Normal weight bearing. No: Dorothy's sign - Neurological Cognition: Normal [place] Coma Scale Eye Opening: Spontaneous Yolanda Coma Scale Verbal: Oriented [place] Coma Scale Motor: Obeys Commands Yolanda Coma Scale Total: 15 Speech: Normal Motor strength normal: LUE, RUE, LLE, RLE Sensory: Normal - Psychological Associated symptoms: Normal affect, Normal mood - Skin Skin Temperature: Warm Skin Moisture: Dry Skin Color: Normal Course - Re-evaluation Re-evalutation: 08/21/19 14:00 Patient with cerebral palsy who was a little bit of a difficult historian presents with multiple complaints. She is having some headache but head CT is unremarkable and there is no evidence of shunt malfunction. She is also had some cough but chest x-ray shows no evidence of infection. She is also having abdominal pain and vomiting but there is no evidence of acute intra-abdominal pathology. Appendix is not seen but there is no other signs of appendicitis such as white blood cell count elevation or fever. I did reexamine the patient's abdomen just now. And she is not particularly tender in the right lower quadrant. I did discuss with patient and mom the signs and symptoms to watch for of appendicitis that would cause him to seek medical attention. Patient has no evidence of urinary tract infection. Patient is now smiling and joking in the room. - Vital Signs Vital signs: Temp Pulse Resp BP Pulse Ox 97.9 F 63 16 114/61 99 08/21/19 12:24 08/21/19 12:24 08/21/19 12:24 08/21/19 12:24 08/21/19 12:24 - Laboratory Result Diagrams: 08/21/19 08:55 08/21/19 08:55 Laboratory results interpreted by me: 08/21/19 08/21/19 08/21/19 08:50 08:55 08:55 RBC 5.32 H Hgb 15.6 H Seg Neutrophils % 80.3 H Creatinine 0.41 L Urine Blood SMALL H Ur Leukocyte Esterase TRACE H - Diagnostic Test Radiology reviewed: Image reviewed, Reports reviewed Discharge - Discharge Clinical Impression: Acute abdominal pain Cerebral palsy Qualifiers: Cerebral palsy type: unspecified type Qualified Code(s): G80.9 - Cerebral palsy, unspecified Condition: Stable Disposition: HOME, SELF-CARE Instructions: Abdominal Pain ([facility]), Observation for Appendicitis ([facility]) Additional Instructions: Please call primary care physician as soon as possible to arrange follow-up
[2019-08-21 14:17] VITALS: BP 116/57
== END 2019-08-21 14:16 | disposition home or self-care (01) ==
LOC: ER 07:38
DX: R10.9 Unspecified abdominal pain (principal); R10.817 Generalized abdominal tenderness; R51 Headache; R05 Cough; R11.2 Nausea with vomiting, unspecified; G80.9 Cerebral palsy, unspecified; Z98.2 Presence of cerebrospinal fluid drainage device; Z90.49 Acquired absence of other specified parts of digestive tract; Z87.19 Personal history of other diseases of the digestive system
CPT/HCPCS: 36415; 83690; 85025; 81025; 80053; 81001; 71046; 70450; 74176; J7030; 96360; 99284

== ENCOUNTER 2019-09-10 21:56 | Inpatient (IN) | payer OTHER, MEDICAID ==
[~2019-09-10 21:56] MED LIST: NORMAL SALINE 1000 ML 1,000 ML IV ONE
[2019-09-10] MEDS ORDERED: ETOMIDATE INJ/PF 20 MG/10 ML SDV IV ONE (22:15)
[2019-09-10] MEDS ORDERED: ROCURONIUM BROMIDE INJ 50 MG/5 ML VIAL IV ONE ×2 (22:16→23:10)
[2019-09-10] MEDS ORDERED: NORMAL SALINE 500 ML IV ONE (22:19)
[2019-09-10] MEDS ORDERED: NORMAL SALINE 1000 ML 1,000 ML IV ONE (22:21)
[2019-09-10] MEDS ORDERED: PROPOFOL 1,000 MG/100 ML INFUS..BTL IV PRN (22:22)
[2019-09-10] MEDS ORDERED: LEVETIRACETAM 1000 MG/NACL-ISO 1,000 MG/100 ML RTUPB IV ONE (22:23)
[2019-09-10] MEDS ORDERED: PROPOFOL 1,000 MG/100 ML INFUS..BTL IV ONE (22:40)
--- NOTE | 2019-09-10 22:51 | RADIOLOGY REPORT (SQ) ---
EXAM DESCRIPTION: XR CHEST 1 VIEW CLINICAL INDICATION: 23-year-old female with endotracheal tube placement. TECHNIQUE: Single view, AP portable chest was obtained. COMPARISON: 08/21/2019. FINDINGS: Unremarkable cardiac and mediastinal silhouette. Heart size is normal. Lungs are clear without focal opacity, pneumothorax or pleural effusions. Shunt catheter tip terminates over the projection of the SVC. Endotracheal tube terminating at the level of the RIGHT mainstem bronchus beyond the trung by approximately 9 mm. Enteric tube terminates off the [id number] of the examination. The visualized bones are within normal limits. IMPRESSION: 1. RIGHT mainstem bronchial intubation as detailed above. Repositioning is recommended. 2. No acute cardiopulmonary abnormalities.
[2019-09-10 22:56] LABS: ABSOLUTE LYMPHOCYTES (AUTO) 3.4 10^3/uL (0.5-4.7); ABSOLUTE NEUT (AUTO) 9.1 10^3/uL (1.7-8.2); BASOPHILS % (AUTO) 0.3 % (0-2); EOSINOPHILS % (AUTO) 0.3 % (0-6); HEMATOCRIT 46.2 % (36.0-47.0); HEMOGLOBIN 15.6 g/dL (12.0-15.5); MEAN CORPUSCULAR HEMOGLOBIN 29.3 pg (27.0-33.4); MEAN CORPUSCULAR HGB CONC 33.7 g/dL (32.0-36.0); MEAN CORPUSCULAR VOLUME 87 fl (80-97); MONOCYTES % (AUTO) 7.5 % (3-13); PLATELET COUNT 305 10^3/uL (150-450); RED BLOOD COUNT 5.31 10^6/uL (3.72-5.28); RED CELL DISTRIBUTION WIDTH 13.3 % (11.5-14.0); SEGMENTED NEUTROPHILS % (AUTO) 66.9 % (42-78); TOTAL CELLS COUNTED % (AUTO) 100 %; WHITE BLOOD COUNT 13.7 10^3/uL (4.0-10.5)
[2019-09-10 23:04] LABS: INTERNATIONAL RATION (INR) 1.25; PROTHROMBIN TIME 15.8 SEC (11.4-15.4)
--- NOTE | 2019-09-10 23:06 | ER Document Report ---
ED General - General Chief Complaint: Respiratory Distress Stated Complaint: SEIZURE Time Seen by Provider: 09/10/19 22:10 TRAVEL OUTSIDE OF THE [place] IN LAST 30 DAYS: No - Related Data Allergies/Adverse Reactions: No Known Allergies Allergy (Verified 08/21/19 07:57) Home Medications: Zonisamide 100mg. Oxtellar XR 300MG tab. Propranolol ER 120 MG. Oxtellar XR 600MG TAb. Methimazole 5mg tab PO every day Past Medical History - Social History Smoking Status: Never Smoker Chew tobacco use (# tins/day): No Frequency of alcohol use: None Drug Abuse: None Family History: Reviewed & Not Pertinent Patient has suicidal ideation: No Patient has homicidal ideation: No Neurological Medical History: Reports: Hx Seizures - 2005 shunt revision Endocrine Medical History: Reports: Hx Hyperthyroidism Renal/ Medical History: Denies: Hx Peritoneal Dialysis Musculoskeletal Medical History: Reports Hx Muscle Spasm Past Surgical History: Reports: Hx Abdominal Surgery - bowl resection, Hx Bowel Surgery - Bowel resection for necrotizing enterocolitis, Hx Neurologic Surgery - 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 Mom says she was having a tonic-clonic seizure letter about 20 minutes. He has seizures when she gets sick but mom says she has not had recent fevers falls aches or diarrhea. Frequent urination. Is not been changed at all recently and she has been compliant with her medications. Arrived and gave the patient 4 mg of Versed. Following this patient started having low O2 sats upon arrival in emergency department assessment noted to be at 82% nonrebreather she is obtainable from the patient Past medical history includes seizures thyroid disease with Graves' cerebral palsy [facility] shunt social history does not smoke or drink at all. She is on her menses now. Family history noncontributory Exam PHYSICAL EXAMINATION: Vital signs were noted GENERAL: Chronically ill tachycardic and tachypneic with low O2 sats HEAD: Atraumatic, normocephalic. EYES: Pupils constricted and sluggish, extraocular movements intact, sclera anicteric, conjunctiva are normal. ENT: nares patent, oropharynx secretions moist mucous membranes. NECK: Normal range of motion, supple without lymphadenopathy no meningeal signs LUNGS: Tachypnea scattered rhonchi HEART: Rapid and regular ABDOMEN: Soft, nontender, normoactive bowel sounds. No guarding, no rebound. No masses appreciated. EXTREMITIES: No deformity or edema NEUROLOGICAL: She does withdraw to painful stimuli she has upgoing toes Back reveals no lesions. SKIN: Warm, Dry, normal turgor, no rashes or lesions noted. Course - Re-evaluation Re-evalutation: 09/11/19 02:11 ED patient remained stable initial chest x-ray showed endotracheal tube in the right mainstem was pulled back. Repeat chest x-ray now shows a right middle lobe infiltrate. Cultures were obtained he was started on antibiotics for community-acquired pneumonia. She has no risk factors for multidrug resistance. She was given IV fluids and propofol has not had any additional seizures Medical decision making patient presents for prolonged seizure probably precipitated by her pneumonia. She developed respiratory failure to be intubated and will need admission. I have consulted hospitalist - Vital Signs Vital signs: Temp Pulse Resp BP Pulse Ox 15 133/86 H 100 09/10/19 22:46 09/10/19 22:46 09/11/19 01:16 - Laboratory Result Diagrams: 09/10/19 22:04 09/10/19 22:04 Laboratory results interpreted by me: 09/10/19 09/10/19 09/10/19 22:04 22:04 22:04 WBC 13.7 H RBC 5.31 H Hgb 15.6 H Absolute Neuts (auto) 9.1 H PT 15.8 H Carbonic Acid ABG pH ABG pCO2 ABG pO2 Chloride 108 H Carbon Dioxide 21 L Glucose 140 H Urine Protein Urine Blood 09/10/19 09/10/19 09/11/19 22:04 23:12 01:39 WBC RBC Hgb Absolute Neuts (auto) PT Carbonic Acid 1.68 H ABG pH 7.23 L 7.31 L ABG pCO2 55.7 H ABG pO2 129.2 H 107.9 H Chloride Carbon Dioxide Glucose Urine Protein 100 H Urine Blood LARGE H - EKG Interpretation by Me Additional EKG results interpreted by me: 11/06/19 23:05 ekG shows a normal sinus rhythm with some questionable T waves in precordial leads Procedures - Intubation Orotracheal Airway evaluation: Copious secretions, Other Mallampati Classification: Class 2 Medications: Etomidate, Vecuronium Intubation method: Orotracheal Blade type: Other Equipment used: Glidescope ETT size: 7.0 ETT secured at: Teeth Breath Sounds after Intubation: Equal, Other - visualized cords, x-ray showed tube down the right mainstem. It was pulled back slightly above the trung will pull back again End tidal CO2 confirmed: Yes Critical Care Note - Critical Care Note Total time excluding time spent on procedures (mins): 70 Comments: Excluding any time spent on billable procedures Discharge - Discharge Clinical Impression: Seizure Respiratory failure Qualifiers: Chronicity: acute Respiratory failure complication: hypoxia Qualified Code(s): J96.01 - Acute respiratory failure with hypoxia Pneumonia Qualifiers: Aspiration pneumonia type: unspecified Disposition: ADMITTED INPATIENT Admitting Provider: Tyrell (Hospitalist) Unit Admitted: ICU
[2019-09-10 23:13] LABS: ALBUMIN 4.7 g/dL (3.5-5.0); ALKALINE PHOSPHATASE 72 U/L (38-126); ANION GAP 14 (5-19); ASPARTATE AMINO TRANSFERASE 25 U/L (14-36); BILIRUBIN,DIRECT 0.3 mg/dL (0.0-0.4); BILIRUBIN,TOTAL 0.5 mg/dL (0.2-1.3); BLOOD UREA NITROGEN 10 mg/dL (7-20); CALCIUM 9.8 mg/dL (8.4-10.2); CARBON DIOXIDE 21 mmol/L (22-30); CHLORIDE 108 mmol/L (98-107); GLUCOSE 140 mg/dL (75-110); POTASSIUM 4.7 mmol/L (3.6-5.0); TOTAL PROTEIN 7.7 g/dL (6.3-8.2)
[2019-09-10 23:31] LABS: APPEARANCE,URINE CLOUDY; BILIRUBIN,URINE NEGATIVE (NEGATIVE); COLOR,URINE YELLOW; GLUCOSE, URINE NEGATIVE (NEGATIVE); KETONES,URINE NEGATIVE (NEGATIVE); PROTEIN,URINE 100 mg/dL (NEGATIVE); URINE SPECIFIC GRAVITY 1.018; UROBILINOGEN,URINE NEGATIVE mg/dL (<2.0)
--- NOTE | 2019-09-10 23:51 | EKG REPORT ---
SEVERITY:- ABNORMAL ECG - SINUS RHYTHM CONSIDER LEFT VENTRICULAR HYPERTROPHY : Confirmed by: Baljinder Herndon 10-Sep-2019 23:51:04
[2019-09-11] MEDS ORDERED: HYDROMORPHONE HCL INJ/PF 2 MG/ML AMPULE ONE (00:03)
[2019-09-11] MEDS ORDERED: AZITHROMYCIN INJ 500 MG VIAL IV ONE (00:06)
[2019-09-11] MEDS ORDERED: CEFTRIAXONE INJ 1000 MG VIAL IV ONE (00:06)
[2019-09-11 00:08] LABS: ARTERIAL BLOOD BASE EXCESS -5.5 mmol/L; ARTERIAL BLOOD H2CO3 1.68 mmol/L (1.05-1.35); ARTERIAL BLOOD HCO3 22.9 mmol/L (20-24); ARTERIAL BLOOD PCO2 55.7 mmHg (35-45); ARTERIAL BLOOD PH 7.23 (7.35-7.45); ARTERIAL BLOOD PO2 129.2 mmHg (80-100); ARTERIAL BLOOD TOTAL CO2 24.6 mmol/L (21-25)
[2019-09-11 00:09] LABS: ARTERIAL BLOOD FIO2 100%
[2019-09-11] MEDS ORDERED: NORMAL SALINE 500 ML IV ONE (00:09)
--- NOTE | 2019-09-11 00:17 | RADIOLOGY REPORT (SQ) ---
EXAM DESCRIPTION: XR CHEST 1 VIEW COMPLETED DATE/TME: 09/10/2019 23:32 CLINICAL HISTORY: 23 years Female, ett COMPARISON: 1.5 hours prior. NUMBER OF VIEWS/TECHNIQUE: 1/AP FINDINGS:mmmmm Moderate patchy opacity of the right midlung field. Tip of an endotracheal tube is 5.5 cm from the trung. Adequate appearing enteric tube partially obscured. Adequate appearing right jugular central line. Normal cardiac silhouette. Increased lung volume. No pneumothorax. Stable bony thorax. IMPRESSION: New moderate patchy opacity of the right mid lung field may indicate hemorrhage, contusion, and/or pneumonia.
[2019-09-11] MEDS ORDERED: HYDROMORPHONE HCL INJ/PF 2 MG/ML AMPULE IV ONE (00:34)
[2019-09-11] MEDS ORDERED: PIPERACILLIN/TAZOBACTAM 3.375 GM VIAL IV ONE (01:09)
[2019-09-11] MEDS ORDERED: CEFEPIME 1 GM/D5W RTU 1 GM/50 ML RTUPB IV ONE (01:10)
--- NOTE | 2019-09-11 01:30 | RADIOLOGY REPORT (SQ) ---
EXAM: CT HEAD WITHOUT IV CONTRAST CLINICAL INDICATION: 23-year-old female with abdominal pain. COMPARISON: 08/21/2018. TECHNIQUE: CT brain without contrast. This exam was performed according to our departmental dose optimization program which includes use of automated exposure control, adjustment of the mA and/or kV according to patient size and/or use of iterative reconstruction technique. FINDINGS: Motion limited examination. Identification of LEFT posterior parietal approach ventriculoperitoneal shunt catheter with tip terminating at the level of the frontal horn of the RIGHT lateral ventricle. Radiopaque components of shunt catheter tubing appear to be intact. 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 Dysmorphic appearance is again identified at the level of the posterior RIGHT frontal and parietal lobes raising the possibility of congenital deformity including migration abnormality and the possibility of polymicrogyria, Sturge-Inman syndrome or other etiology. Nonspecific focus of calcification is identified a finding which may represent dural calcification stable in appearance at the level of the posterior RIGHT frontal lobe extra-axial space. Ventricular volumes are stable in appearance. Again identified is enlargement of the RIGHT greater than LEFT cerebellar hemispheres raising the possibility of hemihypertrophy. Correlation with MRI may be considered if not previously performed. Enteric and endotracheal tubes are incompletely visualized. Small volume of fluid compatible with secretions present at the level of the dependent nasopharynx. The dougherty-white matter differentiation is preserved. There is no mass effect, midline shift, intra- or extra-axial fluid collection/acute hemorrhage. The osseous structures are unremarkable. The paranasal sinuses and mastoid air cells are clear. IMPRESSION: 1. No acute intracranial abnormalities. 2. Stable appearance of ventricular volumes and ventriculoperitoneal shunt catheter. 3. Again identified is enlargement of the RIGHT greater than LEFT cerebellar hemispheres raising the possibility of hemihypertrophy. Correlation with MRI may be considered if not previously performed. 4. Additional stable chronic congenital findings as detailed above.
[2019-09-11] MEDS ORDERED: FENTANYL CITRATE INJ/PF 100 MCG/2 ML AMPUL IV PRN (01:39)
[2019-09-11] MEDS ORDERED: LORAZEPAM INJ 2 MG/1 ML VIAL IV PRN (01:39)
[2019-09-11] MEDS ORDERED: IPRATROPIUM/ALBUTEROL 0.5-2.5 MG/3 ML AMPUL NEB PRN (01:41)
[2019-09-11 01:53] LABS: ARTERIAL BLOOD BASE EXCESS -5.6 mmol/L; ARTERIAL BLOOD H2CO3 1.24 mmol/L (1.05-1.35); ARTERIAL BLOOD HCO3 20.3 mmol/L (20-24); ARTERIAL BLOOD O2 SATURATION 97.5 % (94-98); ARTERIAL BLOOD PCO2 41.2 mmHg (35-45); ARTERIAL BLOOD PH 7.31 (7.35-7.45); ARTERIAL BLOOD PO2 107.9 mmHg (80-100); ARTERIAL BLOOD TOTAL CO2 21.5 mmol/L (21-25)
[2019-09-11 01:54] LABS: ARTERIAL BLOOD FIO2 60%
[2019-09-11] MEDS ORDERED: ACETAMINOPHEN 325 MG SUPP.RECT PR ONE (01:57)
--- NOTE | 2019-09-11 02:27 | PDOC H&P ---
History of Present Illness Patient complains of: Seizure and shortness of breath History of Present Illness: NADEGE NEWMAN is a 23 year old female with a past medical history of cerebral palsy, hyperthyroidism with Graves' disease and seizure disorder. Patient presents after a tonic-clonic seizure of approximately 20 minutes. EMS was called she received 4 mg of Versed with resolution of seizure activity in the emergency room she is found to have oxygen saturations of only 82%. She is intubated for respiratory failure given 1000 of Keppra and found to have infiltrate of the right middle lung ordered azithromycin and Rocephin. Patient's mother is at bedside who is able to provide history indicating a history of Pseudomonas pneumonia and Patient was recently started on Protonix without change of chronic antiepileptic medications or dosing. Past Medical History Neurological Medical History: Reports: Seizures - 2005 shunt revision Endocrine Medical History: Reports: Hyperthyroidism Past Surgical History Past Surgical History: Reports: Vascular Surgery - AV shunt with revision in Social History Information Source: Parent, Relative, [facility] Records Lives with: Family Smoking Status: Never Smoker Electronic Cigarette use?: No Frequency of Alcohol Use: None Hx Recreational Drug Use: No Drugs: None Hx Prescription Drug Abuse: No - Advance Directive Resuscitation Status: Full Code Family History Family History: Hypertension Parental Family History Reviewed: Yes Children Family History Reviewed: Yes Sibling(s) Family History Reviewed.: Yes Medication/Allergy Home Medications: Methimazole [Tapazole] 20 mg PO DAILY 06/06/17 Oxcarbazepine [Oxtellar Xr] 1,800 mg PO DAILY 06/06/17 Oxcarbazepine [Oxtellar Xr] 300 mg PO QHS 11/11/18 Propranolol HCl [Propranolol HCl ER] 120 mg PO DAILY 11/11/18 Azithromycin [Zithromax Tri-Kirill] 500 mg PO DAILY #1 pkg 11/13/18 Cefuroxime Axetil [Ceftin 500 mg Tablet] 500 mg PO BID #14 tablet 11/13/18 Guaifenesin [Mucinex Sr 600 mg Tablet.sa] 600 mg PO Q12 #10 tablet.sa 11/13/18 Amox Tr/Potassium Clavulanate [Augmentin 875-125 Tablet] 1 tab PO BID 7 Days tablet 06/13/19 Allergies/Adverse Reactions: No Known Allergies Allergy (Verified 08/21/19 07:57) Review of Systems ROS unobtainable: Due to mental status - Intubated Physical Exam Vital Signs: Temp Pulse Resp BP Pulse Ox 15 133/86 H 100 09/10/19 22:46 09/10/19 22:46 09/11/19 01:16 Intake & Output 09/09/19 09/10/19 09/11/19 11:59 11:59 11:59 Intake Total 608 Balance 608 Weight 43.3 kg General appearance: PRESENT: no acute distress - Intubated sedated appearing co mfortable on vent settings Head exam: PRESENT: atraumatic, normocephalic Eye exam: PRESENT: conjunctiva pink, EOMI, PERRLA. ABSENT: scleral icterus Ear exam: PRESENT: normal external ear exam Mouth exam: PRESENT: moist, tongue midline Neck exam: ABSENT: carotid bruit, JVD, lymphadenopathy, thyromegaly Respiratory exam: PRESENT: crackles, decreased breath sounds - Right-sided, rales, rhonchi - Clear with suctioning. ABSENT: wheezes Cardiovascular exam: PRESENT: tachycardia. ABSENT: diastolic murmur, rubs, systolic murmur Pulses: PRESENT: normal dorsalis pedis pul Vascular exam: PRESENT: normal capillary refill GI/Abdominal exam: PRESENT: normal bowel sounds, soft. ABSENT: distended, guarding, mass, organolmegaly, rebound, tenderness Rectal exam: PRESENT: deferred Extremities exam: PRESENT: full ROM. ABSENT: calf tenderness, clubbing, pedal edema Neurological exam: PRESENT: alert, awake, oriented to person, oriented to place, oriented to time, oriented to situation, CN II-XII grossly intact. ABSENT: motor sensory deficit Psychiatric exam: PRESENT: appropriate affect, normal mood. ABSENT: homicidal ideation, suicidal ideation Skin exam: PRESENT: dry, intact, warm. ABSENT: cyanosis, rash Results Laboratory Results: 09/10/19 22:04 09/10/19 22:04 09/10/19 09/10/19 09/10/19 22:04 22:04 22:04 WBC 13.7 H RBC 5.31 H Hgb 15.6 H Hct 46.2 MCV 87 MCH 29.3 MCHC 33.7 RDW 13.3 Plt Count 305 Seg Neutrophils % 66.9 Carbonic Acid HCO3/H2CO3 Ratio ABG pH ABG pCO2 ABG pO2 ABG HCO3 ABG O2 Saturation ABG Base Excess FiO2 Sodium 143.1 Potassium 4.7 Chloride 108 H Carbon Dioxide 21 L Anion Gap 14 BUN 10 Creatinine 0.55 Est GFR ( Amer) > 60 Glucose 140 H Lactic Acid 1.4 Calcium 9.8 Total Bilirubin 0.5 AST 25 Alkaline Phosphatase 72 Total Protein 7.7 Albumin 4.7 Urine Color Urine Appearance Urine pH Ur Specific [place] Urine Protein Urine Glucose (UA) Urine Ketones Urine Blood Urine RBC (Auto) 09/10/19 09/10/19 09/11/19 22:04 23:12 01:39 WBC RBC Hgb Hct MCV MCH MCHC RDW Plt Count Seg Neutrophils % Carbonic Acid 1.68 H 1.24 HCO3/H2CO3 Ratio 13:1 16:1 ABG pH 7.23 L 7.31 L ABG pCO2 55.7 H 41.2 ABG pO2 129.2 H 107.9 H ABG HCO3 22.9 20.3 ABG O2 Saturation 98.0 97.5 ABG Base Excess -5.5 -5.6 FiO2 100% 60% Sodium Potassium Chloride Carbon Dioxide Anion Gap BUN Creatinine Est GFR ( Amer) Glucose Lactic Acid Calcium Total Bilirubin AST Alkaline Phosphatase Total Protein Albumin Urine Color YELLOW Urine Appearance CLOUDY Urine pH 5.0 Ur Specific [place] 1.018 Urine Protein 100 H Urine Glucose (UA) NEGATIVE Urine Ketones NEGATIVE Urine Blood LARGE H Urine RBC (Auto) >182 Impressions: Head CT 09/10/19 22:24 IMPRESSION: 1. No acute intracranial abnormalities. 2. Stable appearance of ventricular volumes and ventriculoperitoneal shunt catheter. 3. Again identified is enlargement of the RIGHT greater than LEFT cerebellar hemispheres raising the possibility of hemihypertrophy. Correlation with MRI may be considered if not previously performed. 4. Additional stable chronic congenital findings as detailed above. Chest X-Ray 09/10/19 23:32 IMPRESSION: New moderate patchy opacity of the right mid lung field may indicate hemorrhage, contusion, and/or pneumonia. Assessment and Plan - Diagnosis (1) Pneumonia Qualifiers: Aspiration pneumonia type: unspecified Is this a current diagnosis for this admission?: Yes Plan: Likely aspiration given seizure however history of Pseudomonas with cerebral palsy. Cefepime and Zosyn initiated. Follow-up blood and sputum culture (2) Respiratory failure Qualifiers: Chronicity: acute Respiratory failure complication: hypoxia Qualified Code(s): J96.01 - Acute respiratory failure with hypoxia Is this a current diagnosis for this admission?: Yes Plan: ICU admission, ventilator support, follow-up a.m. ABG (3) Seizure Is this a current diagnosis for this admission?: Yes Plan: Likely secondary to acute illness, possible secondary to Protonix effect of CYP 450 induction. IV Keppra ordered, follow-up medication reconciliation (4) Cerebral palsy Qualifiers: Cerebral palsy type: unspecified type Qualified Code(s): G80.9 - Cerebral palsy, unspecified Is this a current diagnosis for this admission?: Yes Plan: Supportive measures (5) Graves disease Is this a current diagnosis for this admission?: Yes Plan: NG Lopressor ordered, PRN Lopressor IV - Time Time Spent with patient: 25-34 minutes - Inpatient Certification Medical Necessity: Need Close Monitoring Due to Risk of Patient Decompensation
[2019-09-11] MEDS ORDERED: ACETAMINOPHEN 325 MG TABLET ONE (02:35)
[2019-09-11] MEDS ORDERED: ACETAMINOPHEN 650 MG SUPP.RECT PR ONE ×2 (02:37→02:51)
[2019-09-11] MEDS: IPRATROPIUM/ALBUTEROL 0.5-2.5 MG/3 ML AMPUL NEB SCH ×4 (02:41→19:47)
[2019-09-11 03:02] LABS: VENOUS BLOOD BASE EXCESS -5.2 mmol/L; VENOUS BLOOD HCO3 21.3 mmol/L (20-32); VENOUS BLOOD PCO2 44.7 mmHg (35-63); VENOUS BLOOD PH 7.3 (7.30-7.42)
[2019-09-11] MEDS ORDERED: FENTANYL CITRATE INJ/PF 100 MCG/2 ML AMPUL ONE (03:02)
[2019-09-11 03:06] LABS: ABSOLUTE LYMPHOCYTES (AUTO) 1.8 10^3/uL (0.5-4.7); ABSOLUTE MONOCYTES (AUTO) 0.7 10^3/uL (0.1-1.4); ABSOLUTE NEUT (AUTO) 10.6 10^3/uL (1.7-8.2); BASOPHILS % (AUTO) 0.2 % (0-2); EOSINOPHILS % (AUTO) 0.1 % (0-6); HEMATOCRIT 43.3 % (36.0-47.0); HEMOGLOBIN 14.9 g/dL (12.0-15.5); LYMPHOCYTES % (AUTO) 13.5 % (13-45); MEAN CORPUSCULAR HEMOGLOBIN 29.4 pg (27.0-33.4); MEAN CORPUSCULAR HGB CONC 34.3 g/dL (32.0-36.0); MEAN CORPUSCULAR VOLUME 86 fl (80-97); MONOCYTES % (AUTO) 5.1 % (3-13); PLATELET COUNT 197 10^3/uL (150-450); RED BLOOD COUNT 5.05 10^6/uL (3.72-5.28); RED CELL DISTRIBUTION WIDTH 13.4 % (11.5-14.0); SEGMENTED NEUTROPHILS % (AUTO) 81.1 % (42-78); TOTAL CELLS COUNTED % (AUTO) 100 %; WHITE BLOOD COUNT 13.1 10^3/uL (4.0-10.5)
[2019-09-11 03:20] LABS: ANION GAP 10 (5-19); BLOOD UREA NITROGEN 11 mg/dL (7-20); CALCIUM 8.8 mg/dL (8.4-10.2); CARBON DIOXIDE 20 mmol/L (22-30); CHLORIDE 111 mmol/L (98-107); GLUCOSE 103 mg/dL (75-110); POTASSIUM 3.9 mmol/L (3.6-5.0)
[2019-09-11] MEDS: NORMAL SALINE 1000 ML 1,000 ML IV SCH ×2 (03:30→06:58)
[2019-09-11] MEDS ORDERED: PIPERACILLIN SODIUM/TAZOBACTAM 3.375 GM in NORMAL SALINE 100 ML IV SCH (06:00)
--- NOTE | 2019-09-11 06:16 | Operative Report ---
Operative Report DATE OF SURGERY: 09/11/19 PREOPERATIVE DIAGNOSIS: Poor veins for IV access POSTOPERATIVE DIAGNOSIS: Same OPERATION: Placement of left subclavian vein triple-lumen catheter SURGEON: LUKE COTTRELL ANESTHESIA: Local TISSUE REMOVED OR ALTERED: None COMPLICATIONS: None ESTIMATED BLOOD LOSS: 5 cc QUANTITATIVE BLOOD LOSS: 5 INTRAOPERATIVE FINDINGS: Patient has bilateral thyroid lobe enlargement with displacement of the internal jugular vein noted on ultrasound PROCEDURE: Patient was placed in Trendelenburg position and the bilateral internal jugular vein identified with the use of the ultrasound. Patient has enlarged bilateral thyroid gland due to hyperthyroidism. This thyroid gland displacing the internal jugular vein further laterally and deeper. Because of this was decided to do a subclavian vein catheter placement being easier and safer to do. Patient is intubated. The left upper chest and neck were then prepped and draped in the usual sterile fashion. Local anesthesia infiltrated over the left infraclavicular area and the left subclavian vein was subsequently punctured and dark blood noted to come out of the needle with nonpulsatile flow. Guidewire was then passed through the needle on the needle removed. The puncture site was then enlarged and dilated. A triple-lumen catheter was inserted through the guidewire to a distance of about 19cm. The guidewire was removed and all the 3 ports aspirated blood easily and instilled saline easily. Catheter was then anchored to the skin with 3-0 silk. Biopatch placed at the insertion site and transparent sterile dressing was then placed over the Biopatch and catheter. Subsequent chest x-ray was done which showed no pneumothorax with a catheter tip at the atrial area. Patient tolerated procedure well.
--- NOTE | 2019-09-11 06:18 | RADIOLOGY REPORT (SQ) ---
EXAM DESCRIPTION: XR CHEST 1 VIEW COMPLETED DATE/TME: 09/11/2019 05:28 CLINICAL HISTORY: 23 years, Female, cvc placement, risk of pneumothorax COMPARISON: 09/10/2019 NUMBER OF VIEWS: One TECHNIQUE: AP view of the chest LIMITATIONS: None. FINDINGS: Grossly stable patchy airspace opacities along the right midlung. The left lung is clear. The heart size is stable. There is no pneumothorax or pleural effusion. A left PICC has been placed which terminates near the atrial caval junction. The right IJ line, endotracheal tube, and nasogastric tubes remain in satisfactory position. IMPRESSION: Interval placement of a left PICC terminating near the atrial caval junction without complication. Grossly stable patchy airspace opacities along the right mid lung, likely representing pneumonia. copyright 2010 [employer]- All Rights Reserved
[2019-09-11] MEDS: HEPARIN SOD (PORCINE) 5,000 UNIT/ML 1 ML VIAL SUBCUT SCH ×3 (07:02→21:44)
[2019-09-11] MEDS: PIPERACILLIN SODIUM/TAZOBACTAM 3.375 GM in NORMAL SALINE 100 ML IV SCH ×3 (08:11→20:09)
[2019-09-11 08:43] LABS: ARTERIAL BLOOD BASE EXCESS -3.3 mmol/L; ARTERIAL BLOOD H2CO3 1.16 mmol/L (1.05-1.35); ARTERIAL BLOOD HCO3 21.6 mmol/L (20-24); ARTERIAL BLOOD O2 SATURATION 94.8 % (94-98); ARTERIAL BLOOD PCO2 38.5 mmHg (35-45); ARTERIAL BLOOD PH 7.37 (7.35-7.45); ARTERIAL BLOOD PO2 75.2 mmHg (80-100); ARTERIAL BLOOD TOTAL CO2 22.8 mmol/L (21-25)
[2019-09-11] MEDS ORDERED: ETOMIDATE INJ/PF 20 MG/10 ML SDV IV ONE (08:49)
[2019-09-11] MEDS ORDERED: ROCURONIUM BROMIDE INJ 50 MG/5 ML VIAL IV ONE (08:49)
[2019-09-11 08:53] LABS: ARTERIAL BLOOD FIO2 35%
[2019-09-11] MEDS ORDERED: LEVETIRACETAM 1000 MG/NACL-ISO 1,000 MG/100 ML RTUPB IV SCH (10:00)
[2019-09-11] MEDS ORDERED: METOPROLOL TARTRATE 100 MG TABLET PO SCH (10:00)
[2019-09-11] MEDS ORDERED: CEFEPIME 1 GM/D5W RTU 1 GM/50 ML RTUPB IV SCH (10:00)
[2019-09-11] MEDS: LEVETIRACETAM 1000 MG/NACL-ISO 1,000 MG/100 ML RTUPB IV SCH ×2 (10:05→21:44)
[2019-09-11] MEDS: NORMAL SALINE 1000 ML 1,000 ML IV PRN ×2 (12:48→23:04)
[2019-09-11] MEDS: ACETAMINOPHEN 325 MG TABLET PO PRN ×2 (15:15→23:03)
[2019-09-11] MEDS ORDERED: OXCARBAZEPINE 1800 MG PO SCH (22:00)
[2019-09-11] MEDS ORDERED: OXCARBAZEPINE 300 MG PO SCH (22:00)
[2019-09-11] MEDS: ZONISAMIDE 100 MG CAPSULE PO SCH (23:02)
[2019-09-12] MEDS: IPRATROPIUM/ALBUTEROL 0.5-2.5 MG/3 ML AMPUL NEB SCH ×2 (01:57→08:36)
[2019-09-12] MEDS: PIPERACILLIN SODIUM/TAZOBACTAM 3.375 GM in NORMAL SALINE 100 ML IV SCH (02:55)
[2019-09-12 04:22] LABS: ARTERIAL BLOOD BASE EXCESS -6.3 mmol/L; ARTERIAL BLOOD H2CO3 1.15 mmol/L (1.05-1.35); ARTERIAL BLOOD HCO3 19.2 mmol/L (20-24); ARTERIAL BLOOD O2 SATURATION 99.4 % (94-98); ARTERIAL BLOOD PCO2 38.2 mmHg (35-45); ARTERIAL BLOOD PH 7.32 (7.35-7.45); ARTERIAL BLOOD PO2 211.6 mmHg (80-100); ARTERIAL BLOOD TOTAL CO2 20.4 mmol/L (21-25)
[2019-09-12 04:23] LABS: ARTERIAL BLOOD FIO2 45%
[2019-09-12 04:40] LABS: ABSOLUTE MONOCYTES (AUTO) 0.9 10^3/uL (0.1-1.4); ABSOLUTE NEUT (AUTO) 9.2 10^3/uL (1.7-8.2); ANION GAP 8 (5-19); BASOPHILS % (AUTO) 0.1 % (0-2); BLOOD UREA NITROGEN 8 mg/dL (7-20); CALCIUM 8.4 mg/dL (8.4-10.2); CARBON DIOXIDE 20 mmol/L (22-30); CHLORIDE 110 mmol/L (98-107); EOSINOPHILS % (AUTO) 0.2 % (0-6); GLUCOSE 72 mg/dL (75-110); HEMATOCRIT 36.8 % (36.0-47.0); LYMPHOCYTES % (AUTO) 16.4 % (13-45); MEAN CORPUSCULAR HEMOGLOBIN 29.7 pg (27.0-33.4); MEAN CORPUSCULAR HGB CONC 34.4 g/dL (32.0-36.0); MEAN CORPUSCULAR VOLUME 86 fl (80-97); MONOCYTES % (AUTO) 7.4 % (3-13); PLATELET COUNT 152 10^3/uL (150-450); POTASSIUM 3.5 mmol/L (3.6-5.0); RED BLOOD COUNT 4.27 10^6/uL (3.72-5.28); RED CELL DISTRIBUTION WIDTH 13.1 % (11.5-14.0); SEGMENTED NEUTROPHILS % (AUTO) 75.9 % (42-78); TOTAL CELLS COUNTED % (AUTO) 100 %; WHITE BLOOD COUNT 12.1 10^3/uL (4.0-10.5)
[2019-09-12 04:42] LABS: HEMOGLOBIN 12.7 g/dL (12.0-15.5)
[2019-09-12] MEDS: HEPARIN SOD (PORCINE) 5,000 UNIT/ML 1 ML VIAL SUBCUT SCH ×3 (06:53→21:48)
[2019-09-12] MEDS ORDERED: DEXTROSE 50%-WATER 25 GM/50 ML DISP.SYRIN IV ONE (06:59)
[2019-09-12] MEDS ORDERED: PROPRANOLOL HCL 40 MG TABLET PO ONE (07:00)
[2019-09-12] MEDS: FAMOTIDINE 20 MG TABLET PO SCH ×2 (09:28→21:48)
[2019-09-12] MEDS: ZONISAMIDE 100 MG CAPSULE PO SCH (09:28)
[2019-09-12] MEDS: LEVETIRACETAM 500 MG TABLET PO SCH ×2 (09:28→21:43)
[2019-09-12] MEDS: ACETAMINOPHEN 325 MG TABLET PO PRN (09:30)
[2019-09-12] MEDS ORDERED: PROPRANOLOL HCL 40 MG TABLET PO SCH (10:00)
[2019-09-12] MEDS ORDERED: METHIMAZOLE 5 MG TABLET PO SCH (10:00)
[2019-09-12] MEDS ORDERED: METHIMAZOLE 20 MG PO SCH (10:00)
--- NOTE | 2019-09-12 10:30 | PDOC PROGRESS REPORT ---
Subjective Progress Note for:: 09/12/19 Subjective:: More awake, close to baseline according to mother. Reason For Visit: SEIZURE, ASPIRATION PNEMONIA Physical Exam Vital Signs: Temp Pulse Resp BP Pulse Ox 100.0 F 104 H 19 118/76 100 09/12/19 08:00 09/12/19 08:37 09/12/19 10:03 09/12/19 10:03 09/12/19 10:03 Intake & Output 09/11/19 09/12/19 09/13/19 06:59 06:59 06:59 Intake Total 1872 2771 125 Output Total 1770 450 Balance 1872 1001 -325 Weight 43.3 kg 43.4 kg General appearance: PRESENT: no acute distress, well-developed, well-nourished Head exam: PRESENT: atraumatic, normocephalic Eye exam: PRESENT: conjunctiva pink, EOMI, PERRLA. ABSENT: scleral icterus Ear exam: PRESENT: normal external ear exam Mouth exam: PRESENT: moist, tongue midline Neck exam: PRESENT: full ROM. ABSENT: carotid bruit, JVD, lymphadenopathy, thy romegaly Respiratory exam: PRESENT: clear to auscultation magi, unlabored Cardiovascular exam: PRESENT: tachycardia Vascular exam: PRESENT: normal capillary refill GI/Abdominal exam: PRESENT: normal bowel sounds, soft. ABSENT: distended, guarding, mass, organolmegaly, rebound, tenderness Rectal exam: PRESENT: deferred Extremities exam: PRESENT: full ROM Musculoskeletal exam: PRESENT: ambulatory, full ROM, normal inspection Neurological exam: PRESENT: alert, awake Skin exam: PRESENT: dry, intact, warm. ABSENT: cyanosis, rash Results Laboratory Results: 09/12/19 03:40 09/12/19 03:40 09/12/19 09/12/19 09/12/19 03:40 03:40 04:08 WBC 12.1 H RBC 4.27 Hgb 12.7 D Hct 36.8 MCV 86 MCH 29.7 MCHC 34.4 RDW 13.1 Plt Count 152 Seg Neutrophils % 75.9 Carbonic Acid 1.15 HCO3/H2CO3 Ratio 16:1 ABG pH 7.32 L ABG pCO2 38.2 ABG pO2 211.6 H ABG HCO3 19.2 L ABG O2 Saturation 99.4 H ABG Base Excess -6.3 FiO2 45% Sodium 137.5 Potassium 3.5 L Chloride 110 H Carbon Dioxide 20 L Anion Gap 8 BUN 8 Creatinine 0.35 L Est GFR ( Amer) > 60 Glucose 72 L Calcium 8.4 Impressions: Head CT 09/10/19 22:24 IMPRESSION: 1. No acute intracranial abnormalities. 2. Stable appearance of ventricular volumes and ventriculoperitoneal shunt catheter. 3. Again identified is enlargement of the RIGHT greater than LEFT cerebellar hemispheres raising the possibility of hemihypertrophy. Correlation with MRI may be considered if not previously performed. 4. Additional stable chronic congenital findings as detailed above. Chest X-Ray 09/11/19 05:28 IMPRESSION: Interval placement of a left PICC terminating near the atrial caval junction without complication. Grossly stable patchy airspace opacities along the right mid lung, likely representing pneumonia. copyright 2011 [employer]- All Rights Reserved Assessment & Plan - Diagnosis (1) Seizure Is this a current diagnosis for this admission?: Yes Plan: Mother has home meds. Will restart. Keppra for now. No further seizures and no obvious cause. (2) Acute respiratory failure with hypoxia Is this a current diagnosis for this admission?: Yes Plan: Resolved (3) Cerebral palsy Qualifiers: Cerebral palsy type: unspecified type Qualified Code(s): G80.9 - Cerebral palsy, unspecified Is this a current diagnosis for this admission?: Yes Plan: Chronic and she may have difficulty with ambulation. PT consulted. May need home PT. (4) Graves disease Is this a current diagnosis for this admission?: Yes Plan: Back on propranolol. Continue methimazole. - Time Time Spent with patient: 30 Time Spent with patient: 25-34 minutes Level of Care: MEDICAL Medications reviewed and adjusted accordingly: Yes Anticipated discharge: Home Within: within 24 hours - Inpatient Certification Based on my medical assessment, after consideration of the patient's comorbidities, presenting symptoms, or acuity I expect that the services needed warrant INPATIENT care.: Yes I certify that my determination is in accordance with my understanding of Medicare's requirements for reasonable and necessary INPATIENT services [42 CFR 412.3e].: Yes Medical Necessity: Failure to Improve With Outpatient Therapy
[2019-09-12] MEDS ORDERED: Oxcarbazepine [Oxtellar Xr] 300 MG PO SCH (22:00)
[2019-09-12] MEDS ORDERED: OXCARBAZEPINE 600 MG PO SCH (22:00)
[2019-09-13] MEDS: HEPARIN SOD (PORCINE) 5,000 UNIT/ML 1 ML VIAL SUBCUT SCH (05:26)
[2019-09-13 05:45] LABS: ABSOLUTE LYMPHOCYTES (AUTO) 2.3 10^3/uL (0.5-4.7); ABSOLUTE MONOCYTES (AUTO) 0.7 10^3/uL (0.1-1.4); ABSOLUTE NEUT (AUTO) 4.7 10^3/uL (1.7-8.2); BASOPHILS % (AUTO) 0.1 % (0-2); EOSINOPHILS % (AUTO) 0.6 % (0-6); HEMATOCRIT 35.1 % (36.0-47.0); HEMOGLOBIN 12.3 g/dL (12.0-15.5); LYMPHOCYTES % (AUTO) 29.4 % (13-45); MEAN CORPUSCULAR HEMOGLOBIN 30.1 pg (27.0-33.4); MEAN CORPUSCULAR HGB CONC 34.9 g/dL (32.0-36.0); MEAN CORPUSCULAR VOLUME 86 fl (80-97); MONOCYTES % (AUTO) 9.2 % (3-13); PLATELET COUNT 147 10^3/uL (150-450); RED BLOOD COUNT 4.07 10^6/uL (3.72-5.28); SEGMENTED NEUTROPHILS % (AUTO) 60.7 % (42-78); TOTAL CELLS COUNTED % (AUTO) 100 %; WHITE BLOOD COUNT 7.7 10^3/uL (4.0-10.5)
--- NOTE | 2019-09-13 07:14 | PDOC DISCHARGE SUMMARY ---
Impression - Admit/DC Date/PCP Admission Date/Primary Care Provider: 09/11/19 02:18 Discharge Date: 09/13/19 - Discharge Diagnosis (1) Seizure Is this a current diagnosis for this admission?: Yes (2) Acute respiratory failure with hypoxia Is this a current diagnosis for this admission?: Yes (3) Cerebral palsy Is this a current diagnosis for this admission?: Yes (4) Graves disease Is this a current diagnosis for this admission?: Yes - Assessment Summary: This is a 23 yo woman with CP and seizures who had a seizure and subsequent aspiration. She was intubated for airway protection. Quickly extubated and is now back on home meds. No furter seizure activity and back to baseline. Keppra discontinued. No fever, SOB, secretions. No abx. Ready for discharge. - Additional Information Resuscitation Status: Full Code Home Medications: Methimazole [Tapazole] 20 mg PO DAILY 06/06/17 Oxcarbazepine [Oxtellar Xr] 1,800 mg PO QHS MDD MOM HAS MED IN ROOM 06/06/17 Oxcarbazepine [Oxtellar Xr] 300 mg PO QHS MDD MOM HAS MED IN ROOM 11/11/18 Propranolol HCl [Propranolol HCl ER] 120 mg PO QHS 11/11/18 Zonisamide 100 mg PO DAILY 09/11/19 Famotidine [Pepcid 20 mg Tablet] 20 mg PO BID 09/13/19 History of Present Illiness History of Present Illness: NADEGE NEWMAN is a 23 year old female intubated after a seizure for airway protection. Aspiration and mild RML pneumonitis resolved. No further seizuers, back to baseline. Ready for discharge home. Only new medication is pepcid BID in place of protonix. Hospital Course Hospital Course: Easy wean and extubation. No SOB, dyspnea, secretions. Physical Exam Vital Signs: Temp Pulse Resp BP Pulse Ox 99.0 F 92 24 H 127/76 H 96 09/12/19 20:05 09/12/19 14:00 09/12/19 20:00 09/12/19 19:58 09/12/19 20:00 Intake & Output 09/11/19 09/12/19 09/13/19 06:59 06:59 06:59 Intake Total 1872 2771 1592 Output Total 1770 1260 Balance 1872 1001 332 Weight 43.3 kg 43.4 kg 42.6 kg General appearance: PRESENT: no acute distress, cooperative, well-developed, well-nourished Head exam: PRESENT: atraumatic, normocephalic Eye exam: PRESENT: conjunctival injection, conjunctiva pink, EOMI, PERRLA, other - Not consistent art all with pink eye, her mother's concern.. ABSENT: scleral icterus Ear exam: PRESENT: bleeding Mouth exam: PRESENT: moist, tongue midline Cardiovascular exam: PRESENT: RRR. ABSENT: diastolic murmur, rubs, systolic murmur GI/Abdominal exam: PRESENT: normal bowel sounds, soft. ABSENT: distended, guarding, mass, organolmegaly, rebound, tenderness Rectal exam: PRESENT: deferred Extremities exam: PRESENT: full ROM Musculoskeletal exam: PRESENT: ambulatory, full ROM Neurological exam: PRESENT: alert, awake, oriented to person, oriented to place, oriented to time, oriented to situation, CN II-XII grossly intact. ABSENT: motor sensory deficit Skin exam: PRESENT: dry, intact, warm. ABSENT: cyanosis, rash Results Laboratory Results: WBC 7.7 10^3/uL (4.0-10.5) 09/13/19 05:28 RBC 4.07 10^6/uL (3.72-5.28) 09/13/19 05:28 Hgb 12.3 g/dL (12.0-15.5) 09/13/19 05:28 Hct 35.1 % (36.0-47.0) L 09/13/19 05:28 MCV 86 fl (80-97) 09/13/19 05:28 MCH 30.1 pg (27.0-33.4) 09/13/19 05:28 MCHC 34.9 g/dL (32.0-36.0) 09/13/19 05:28 RDW 13.0 % (11.5-14.0) 09/13/19 05:28 Plt Count 147 10^3/uL (150-450) L 09/13/19 05:28 Lymph % (Auto) 29.4 % (13-45) 09/13/19 05:28 [place] % (Auto) 9.2 % (3-13) 09/13/19 05:28 Eos % (Auto) 0.6 % (0-6) 09/13/19 05:28 Baso % (Auto) 0.1 % (0-2) 09/13/19 05:28 Absolute Neuts (auto) 4.7 10^3/uL (1.7-8.2) 09/13/19 05:28 Absolute Lymphs (auto) 2.3 10^3/uL (0.5-4.7) 09/13/19 05:28 Absolute Monos (auto) 0.7 10^3/uL (0.1-1.4) 09/13/19 05:28 Absolute Eos (auto) 0.0 10^3/uL (0.0-0.6) 09/13/19 05:28 Absolute Basos (auto) 0.0 10^3/uL (0.0-0.2) 09/13/19 05:28 Seg Neutrophils % 60.7 % (42-78) 09/13/19 05:28 PT 15.8 SEC (11.4-15.4) H 09/10/19 22:04 INR 1.25 09/10/19 22:04 Carbonic Acid 1.15 mmol/L (1.05-1.35) 09/12/19 04:08 HCO3/H2CO3 Ratio 16:1 09/12/19 04:08 ABG pH 7.32 (7.35-7.45) L 09/12/19 04:08 ABG pCO2 38.2 mmHg (35-45) 09/12/19 04:08 ABG pO2 211.6 mmHg (80-100) H 09/12/19 04:08 ABG HCO3 19.2 mmol/L (20-24) L 09/12/19 04:08 ABG Total CO2 20.4 mmol/L (21-25) L 09/12/19 04:08 ABG O2 Saturation 99.4 % (94-98) H 09/12/19 04:08 ABG Base Excess -6.3 mmol/L 09/12/19 04:08 VBG pH 7.30 (7.30-7.42) 09/11/19 02:55 VBG pCO2 44.7 mmHg (35-63) 09/11/19 02:55 VBG HCO3 21.3 mmol/L (20-32) 09/11/19 02:55 VBG Base Excess -5.2 mmol/L 09/11/19 02:55 FiO2 45% 09/12/19 04:08 Sodium 137.5 mmol/L (137-145) 09/12/19 03:40 Potassium 3.5 mmol/L (3.6-5.0) L 09/12/19 03:40 Chloride 110 mmol/L (98-107) H 09/12/19 03:40 Carbon Dioxide 20 mmol/L (22-30) L 09/12/19 03:40 Anion Gap 8 (5-19) 09/12/19 03:40 BUN 8 mg/dL (7-20) 09/12/19 03:40 Creatinine 0.35 mg/dL (0.52-1.25) L 09/12/19 03:40 Est GFR ( Amer) > 60 (>60) 09/12/19 03:40 Est GFR (MDRD) Non-Af > 60 (>60) 09/12/19 03:40 Glucose 72 mg/dL (75-110) L 09/12/19 03:40 POC Glucose 99 mg/dL (70-110) 09/13/19 05:25 Lactic Acid 1.4 mmol/L (0.7-2.1) 09/10/19 22:04 Calcium 8.4 mg/dL (8.4-10.2) 09/12/19 03:40 Total Bilirubin 0.5 mg/dL (0.2-1.3) 09/10/19 22:04 Direct Bilirubin 0.3 mg/dL (0.0-0.4) 09/10/19 22:04 Neonat Total Bilirubin Not Reportable 09/10/19 22:04 Neonat Direct Bilirubin Not Reportable 09/10/19 22:04 Neonat Indirect Bili Not Reportable 09/10/19 22:04 AST 25 U/L (14-36) 09/10/19 22:04 ALT 16 U/L (<35) 09/10/19 22:04 Alkaline Phosphatase 72 U/L (38-126) 09/10/19 22:04 Total Protein 7.7 g/dL (6.3-8.2) 09/10/19 22:04 Albumin 4.7 g/dL (3.5-5.0) 09/10/19 22:04 Urine Color YELLOW 09/10/19 23:12 Urine Appearance CLOUDY 09/10/19 23:12 Urine pH 5.0 (5.0-9.0) 09/10/19 23:12 Ur Specific [place] 1.018 09/10/19 23:12 Urine Protein 100 mg/dL (NEGATIVE) H 09/10/19 23:12 Urine Glucose (UA) NEGATIVE mg/dL (NEGATIVE) 09/10/19 23:12 Urine Ketones NEGATIVE mg/dL (NEGATIVE) 09/10/19 23:12 Urine Blood LARGE (NEGATIVE) H 09/10/19 23:12 Urine Nitrite (Reflex) NEGATIVE (NEGATIVE) 09/10/19 23:12 Urine Bilirubin NEGATIVE (NEGATIVE) 09/10/19 23:12 Urine Urobilinogen NEGATIVE mg/dL (<2.0) 09/10/19 23:12 Leukocyte Esterase Rfl NEGATIVE (NEGATIVE) 09/10/19 23:12 Urine RBC (Auto) >182 /HPF 09/10/19 23:12 U Hyaline Cast (Auto) 44 /LPF 09/10/19 23:12 Urine Bacteria (Auto) 1+ /HPF 09/10/19 23:12 Urine WBC (Reflex) 6 /HPF 09/10/19 23:12 Squamous Epi Cells Auto 4 /HPF 09/10/19 23:12 Urine Mucus (Auto) MOD /LPF 09/10/19 23:12 Urine Ascorbic Acid NEGATIVE (NEGATIVE) 09/10/19 23:12 Urine HCG, Qual NEGATIVE (NEGATIVE) 09/10/19 23:12 Impressions: Chest X-Ray 09/10/19 22:11 IMPRESSION: 1. RIGHT mainstem bronchial intubation as detailed above. Repositioning is recommended. 2. No acute cardiopulmonary abnormalities. Head CT 09/10/19 22:24 IMPRESSION: 1. No acute intracranial abnormalities. 2. Stable appearance of ventricular volumes and ventriculoperitoneal shunt catheter. 3. Again identified is enlargement of the RIGHT greater than LEFT cerebellar hemispheres raising the possibility of hemihypertrophy. Correlation with MRI may be considered if not previously performed. 4. Additional stable chronic congenital findings as detailed above. Chest X-Ray 09/10/19 23:32 IMPRESSION: New moderate patchy opacity of the right mid lung field may indicate hemorrhage, contusion, and/or pneumonia. Chest X-Ray 09/11/19 05:28 IMPRESSION: Interval placement of a left PICC terminating near the atrial caval junction without complication. Grossly stable patchy airspace opacities along the right mid lung, likely representing pneumonia. copyright 2011 [employer]- All Rights Reserved Plan Health Concerns: Change protonix for pepcid. Plan of Treatment: Resume other home medications and diet. See primary care if needed Goals: Back to pre hospital functioning. Stroke Is this a Stroke Patient?: No Acute Heart Failure - Is this a Heart Failure Patient?: No
[2019-09-13 07:51] VITALS: BP 116/88
[2019-09-13] MEDS ORDERED: PROPRANOLOL HCL 40 MG TABLET PO SCH (10:00)
[2019-09-13] MEDS ORDERED: FAMOTIDINE 20 MG TABLET PO SCH (10:00)
[2019-09-13] MEDS ORDERED: (PENDING PHARMACY ID) (Propranolol Hcl [Propranolol Hcl Er] 120 MG) PO SCH (22:00)
== END 2019-09-13 08:30 | disposition home or self-care (01) | DRG 208 ==
LOC: ER 21:56 → EH 09-11 02:18 → ICU 09-11 03:23
PROVIDERS: ADMIT Internal Medicine; ATTEND Anesthesiology
PROC: 5A1935Z Respiratory Ventilation, Less than 24 Consecutive Hours (ICD-10-PCS; principal; 2019-09-10)
PROC: 0BH17EZ Insertion of Endotracheal Airway into Trachea, Via Natural or Artificial Opening (ICD-10-PCS; 2019-09-10)
PROC: 5A09457 Assistance with Respiratory Ventilation, 24-96 Consecutive Hours, Continuous Positive Airway Pressure (ICD-10-PCS; 2019-09-11)
PROC: 02H633Z Insertion of Infusion Device into Right Atrium, Percutaneous Approach (ICD-10-PCS; 2019-09-11)
DX: J96.01 Acute respiratory failure with hypoxia (principal); J69.0 Pneumonitis due to inhalation of food and vomit; G40.909 Epilepsy, unspecified, not intractable, without status epilepticus; G80.9 Cerebral palsy, unspecified; E05.00 Thyrotoxicosis with diffuse goiter without thyrotoxic crisis or storm; Z82.49 Family history of ischemic heart disease and other diseases of the circulatory system; Z79.899 Other long term (current) drug therapy
CPT/HCPCS: 36415; 36600; 51702; 70450; 71045; 80048; 80053; 81001; 81025; 82803; 82962; 83605; 85025; 85610; 87040; 93005; 93010; 94002; 94003; 94640; 94660; 96365; 99291; C1751; J0692; J1170; J1644; J1953; J2060; J2543; J2704; J3490; J7030; J7040; J7050; J7620

== ENCOUNTER 2019-12-09 15:20 | Emergency (ER) | payer OTHER, MEDICAID ==
[2019-12-09 16:06] LABS: ABSOLUTE LYMPHOCYTES (AUTO) 1.2 10^3/uL (0.5-4.7); ABSOLUTE MONOCYTES (AUTO) 0.7 10^3/uL (0.1-1.4); ABSOLUTE NEUT (AUTO) 7.1 10^3/uL (1.7-8.2); BASOPHILS % (AUTO) 0.2 % (0-2); EOSINOPHILS % (AUTO) 0.3 % (0-6); HEMATOCRIT 36.7 % (36.0-47.0); HEMOGLOBIN 12.6 g/dL (12.0-15.5); LYMPHOCYTES % (AUTO) 13.5 % (13-45); MEAN CORPUSCULAR HEMOGLOBIN 28.5 pg (27.0-33.4); MEAN CORPUSCULAR HGB CONC 34.5 g/dL (32.0-36.0); MEAN CORPUSCULAR VOLUME 83 fl (80-97); MONOCYTES % (AUTO) 8.1 % (3-13); PLATELET COUNT 255 10^3/uL (150-450); RED BLOOD COUNT 4.43 10^6/uL (3.72-5.28); RED CELL DISTRIBUTION WIDTH 12.7 % (11.5-14.0); SEGMENTED NEUTROPHILS % (AUTO) 77.9 % (42-78); TOTAL CELLS COUNTED % (AUTO) 100 %; WHITE BLOOD COUNT 9.1 10^3/uL (4.0-10.5)
[2019-12-09 16:07] LABS: APPEARANCE,URINE SLIGHTLY-CLOUDY; BILIRUBIN,URINE NEGATIVE (NEGATIVE); COLOR,URINE YELLOW; GLUCOSE, URINE 50 mg/dL (NEGATIVE); KETONES,URINE NEGATIVE (NEGATIVE); LEUKOCYTE ESTERASE,URINE NEGATIVE (NEGATIVE); NITRITE,URINE NEGATIVE (NEGATIVE); PROTEIN,URINE 100 mg/dL (NEGATIVE); URINE SPECIFIC GRAVITY 1.018; UROBILINOGEN,URINE NEGATIVE mg/dL (<2.0)
[2019-12-09 16:14] LABS: INTERNATIONAL RATION (INR) 1.17
[2019-12-09 16:27] LABS: URINE AMPHETAMINES SCREEN NEGATIVE; URINE BARBITURATES SCREEN NEGATIVE; URINE BENZODIAZEPINES SCREEN UNCONFIRMED POSITIVE; URINE COCAINE SCREEN NEGATIVE; URINE MARIJUANA (THC) SCREEN NEGATIVE; URINE METHADONE SCREEN NEGATIVE; URINE PHENCYCLIDINE SCREEN NEGATIVE
[2019-12-09 16:30] LABS: ALBUMIN 3.7 g/dL (3.5-5.0); ALKALINE PHOSPHATASE 58 U/L (38-126); ANION GAP 7 (5-19); ASPARTATE AMINO TRANSFERASE 29 U/L (14-36); BILIRUBIN,TOTAL 0.3 mg/dL (0.2-1.3); BLOOD UREA NITROGEN 11 mg/dL (7-20); CALCIUM 8.6 mg/dL (8.4-10.2); CARBON DIOXIDE 25 mmol/L (22-30); CHLORIDE 97 mmol/L (98-107); GLUCOSE 89 mg/dL (75-110); POTASSIUM 4.8 mmol/L (3.6-5.0); TOTAL PROTEIN 6.2 g/dL (6.3-8.2)
--- NOTE | 2019-12-09 17:00 | ER Document Report ---
ED General - General Chief Complaint: Seizure Stated Complaint: SEIZURE Time Seen by Provider: 12/09/19 16:30 TRAVEL OUTSIDE OF THE [place] IN LAST 30 DAYS: No - HPI Notes: Patient is a 24-year-old female with a known history of cerebral palsy and epilepsy who presents to the emergency department for evaluation after a seizure. Patient has been taking her medications as prescribed. She was with her mother when she had a prolonged grand mal seizure, that lasted approximately 20 minutes. Medication was administered by EMS. EMS reports there may have been 2 seizures following, but mother states that normally her seizures have what appear to be small breaks. There is not been any recent head trauma. Patient has been taking all of her medications as prescribed per mother. The patient has not had a seizure since prior to her thyroidectomy, performed in September. She states that it was thought that her seizures were aggravated by her hyperthyroidism/thyroid storm. The patient is following with endocrinology. She is currently on a stable dose of Synthroid, and they state that her TSH levels are moving appropriately. It was last checked approximately 2 weeks ago. The patient has had some abdominal bloating according to mother, states that she was unsure as to when her last bowel movement may have been. Otherwise, there were no preceding URI symptoms, fevers, sore throat, vomiting, or any other warning signs of this seizure. According to mother, her slow speech is continued, this is not back to baseline. - Related Data Allergies/Adverse Reactions: No Known Allergies Allergy (Verified 08/21/19 07:57) Home Medications: Oxtellar XR 3 x QD 600mg. Zonisamide 100 mg X 1. levothyrozine 125 mg X 1. Pepcid 20 mg 2 BID. Oscal 500mg x 2 Past Medical History - General Information source: Patient, Parent - Social History Smoking Status: Never Smoker Family History: Reviewed & Not Pertinent, Hypertension Patient has suicidal ideation: No Patient has homicidal ideation: No Neurological Medical History: Reports: Hx Seizures - 2006 shunt revision, Other - Cerebral palsy Endocrine Medical History: Reports: Hx Hyperthyroidism Renal/ Medical History: Denies: Hx Peritoneal Dialysis GI Medical History: Reports: Hx Gastroesophageal Reflux Disease Musculoskeletal Medical History: Reports Hx Muscle Spasm Past Surgical History: Reports: Hx Abdominal Surgery - bowl resection, Hx Bowel Surgery - Bowel resection for necrotizing enterocolitis, Hx Neurologic Surgery - [employer] shunt with 2 revisions, Hx Thyroid Surgery - Thyroidectomy in September 2019, Hx Vascular Surgery - AV shunt with revision in - Immunizations Immunizations up to date: Yes Hx Diphtheria, Pertussis, Tetanus Vaccination: Yes Review of Systems - Review of Systems Constitutional: No symptoms reported EENT: No symptoms reported Cardiovascular: No symptoms reported Respiratory: No symptoms reported Gastrointestinal: See HPI Genitourinary: No symptoms reported Musculoskeletal: No symptoms reported Skin: No symptoms reported Neurological/Psychological: No symptoms reported Physical Exam - Vital signs Vitals: Resp Pulse Ox 20 100 12/09/19 15:22 12/09/19 15:22 - Notes Notes: This is a 24-year-old female, lying in the bed. She is drowsy but arouses to v erbal stimuli only. Head is normocephalic and appears atraumatic. Shunt is palpable, with noted thrill, on the left parietal skull. No palpable kinks in the shunt noted. Pupils are equal round, reactive to light. Oral mucosa is moist. I do not appreciate any bite trauma to the tongue or bugle mucosa. Heart is regular rate and rhythm, lungs are clear to auscultation bilaterally. Abdomen is soft but diffusely tender without rebound or guarding. Extremities without cyanosis or clubbing. Skin is warm and dry. Patient is drowsy but arousable, oriented to person, disoriented to place and time. Initially she was holding her arms in a decorticate position but was able to move them without apparent difficulty. Moves all 4 extremities spontaneously. No gross facial asymmetry, sensation appears to be intact throughout. Course - Re-evaluation Re-evalutation: 12/09/19 17:00 Patient is a 24-year-old female who presents to the emergency department for evaluation after a prolonged seizure. She was given benzodiazepines in route for her seizure, and has not had any further seizure activity here. Laboratory investigations were obtained and are thus far unremarkable, still awaiting TSH. I do not strongly suspect thyroid is a possible etiology at this time based on her normal numbers just a few weeks ago. KUB was ordered to evaluate for large constipation given her abdominal bloating. Otherwise, patient is stable, we will continue to monitor. 12/09/19 18:37 Patient remained stable. She has not had any further seizure activity. She remains drowsy but again is arousable to verbal stimuli only. Mother states that it usually takes several hours after a seizure for her to return to baseline. She states that, given the fact she also received benzodiazepines, she has not surprised by her current status. She states she feels comfortable taking the patient home. In regards to her constipation, we did offer multiple options. We discussed these at length, and mother decided to try magnesium citrate and MiraLAX at home. She will be given a bottle of mag citrate for home, mother states she will likely elect to do it tomorrow. She is advised to start MiraLAX tonight. Otherwise, she plans to call her neurologist at [facility] first thing tomorrow for follow-up. Mother understands that should she have a repeat seizure she needs to be brought in immediately and evaluated for possible transfer. Again they are to return to the emergency department for second concerning symptoms of any sort. - Vital Signs Vital signs: Temp Pulse Resp BP Pulse Ox 15 113/88 H 99 12/09/19 17:01 12/09/19 17:00 12/09/19 17:01 - Laboratory Result Diagrams: 12/09/19 15:30 12/09/19 15:30 Laboratory results interpreted by me: 12/09/19 12/09/19 15:30 15:30 Sodium 128.8 L Chloride 97 L Total Protein 6.2 L Urine Protein 100 H Urine Glucose (UA) 50 H Discharge - Discharge Clinical Impression: Seizure disorder, Seizure Constipation Qualifiers: Constipation type: unspecified constipation type Qualified Code(s): K59.00 - Constipation, unspecified Condition: Stable Disposition: HOME, SELF-CARE Instructions: Seizure, Known Epileptic ([facility]), Constipation ([facility]) Additional Instructions: No significant abnormality was found on labs today. Please follow-up closely with her neurologist at [facility]. In regards to her constipation, you have been given a bottle of magnesium citrate. Try to have her drink it all at once, results are usually within an hour. You can start dosing with MiraLAX (or generic equivalent) this evening. She can have 1 full capful. If her stools are hard, she can increase this to 2 capfuls daily until good results. Return to the emergency department with worsening or new concerning symptoms of any sort.
--- NOTE | 2019-12-09 18:00 | RADIOLOGY REPORT (SQ) ---
EXAM DESCRIPTION: KUB/ABDOMEN (SINGLE VIEW) COMPLETED DATE/TIME: 12/09/2019 4:22 pm REASON FOR STUDY: abdominal bloating COMPARISON: None. NUMBER OF VIEWS: One view. TECHNIQUE: Supine radiographic image of the abdomen acquired. LIMITATIONS: None. FINDINGS: BOWEL GAS PATTERN: Large amount of stool throughout the colon and in the rectum. Gaseous distention of the stomach. Normal bowel gas pattern. No dilated loops. CALCIFICATIONS: No suspicious calcifications. SOFT TISSUES: No gross mass or suggestion of organomegaly. HARDWARE: None in the abdomen. BONES: No acute fracture. No worrisome bone lesions. OTHER: No other significant finding. IMPRESSION: Large amount of stool throughout the colon which can be seen with constipation. Nonobst ructive bowel gas pattern. TECHNICAL DOCUMENTATION: JOB ID: [id number]- All Rights Reserved Reading location - IP/workstation name: [email or web address]
[2019-12-09] MEDS ORDERED: MAGNESIUM CITRATE 296 ML BOTTLE PO ONE (18:40)
[2019-12-09 19:01] VITALS: BP 101/74
== END 2019-12-09 19:29 | disposition home or self-care (01) ==
LOC: ER 15:20
DX: G40.409 Other generalized epilepsy and epileptic syndromes, not intractable, without status epilepticus (principal); K59.00 Constipation, unspecified; G80.9 Cerebral palsy, unspecified; E89.0 Postprocedural hypothyroidism; K21.9 Gastro-esophageal reflux disease without esophagitis; Z79.899 Other long term (current) drug therapy
CPT/HCPCS: 99284; 36415; 83605; 84443; 85025; 85610; 81025; 80053; 81001; 80307; 74018; J3490

== ENCOUNTER 2020-01-31 23:09 | Emergency (ER) | payer OTHER, MEDICAID ==
--- NOTE | 2020-02-01 01:02 | ER Document Report ---
Entered by WILLIAN WEBSTER SCRIBE 01/31/20 [id number] Acting as scribe for:KELLY NGUYEN IV, MD ED Seizure - General Stated Complaint: SEIZURE Time Seen by Provider: 01/31/20 23:20 Mode of Arrival: Medic Information source: Parent - Mother Notes: This 24 year old female patient with a history of seizures, hyperthyroidism, Grave's disease, and cerebral palsy brought in by EMS presents to the ED today with complaints of seizure that occurred approximately at 2136 this evening according to mom. Mom states that the seizure lasted approximately x30 minutes, but was mild and less violent compared to her past episodes; Mom notes that the last x2-3 seizures have been "lengthy" like tonight. Mom states that she tried to administer the anticonvulsant drug via IM, but she couldn't get the meds out of the vial. Mom notes that the patient received Versed en route, stating that it typically stops the seizures.Mom reports that the patient's previous seizures were due to Grave's disease, but states that the patient had a thyroidectomy in September 2019, so she is concerned about the cause of her current episodes. Mom notes that this is the second seizure since the thyroidectomy, with the first one occurring x6 weeks ago in December. According to mom, the patient's thyroid levels in December were normal. Mom denies fever, cough, or history of UTIs. - Related Data Allergies/Adverse Reactions: No Known Allergies Allergy (Verified 08/21/19 07:57) Past Medical History - General Information source: Parent - Mother - Social History Smoking Status: Never Smoker Cigarette use (# per day): No Chew tobacco use (# tins/day): No Smoking Education Provided: No Frequency of alcohol use: None Drug Abuse: None Lives with: Family Family History: Reviewed & Not Pertinent, Hypertension Patient has suicidal ideation: No Patient has homicidal ideation: No Neurological Medical History: Reports: Hx Seizures - 2006 shunt revision Endocrine Medical History: Reports: Hx Graves' Disease, Hx Hyperthyroidism GI Medical History: Reports: Hx Gastroesophageal Reflux Disease Musculoskeletal Medical History: Reports Hx Muscle Spasm Past Surgical History: Reports: Hx Abdominal Surgery - bowel resection, Hx Bowel Surgery - Bowel resection for necrotizing enterocolitis, Hx Neurologic Surgery - G[employer] shunt with 2 revisions, Hx Thyroid Surgery - Thyroidectomy in September 2019, Hx Vascular Surgery - AV shunt with revision in 06 - Immunizations Immunizations up to date: Yes Hx Diphtheria, Pertussis, Tetanus Vaccination: Yes Review of Systems - Review of Systems Constitutional: See HPI. denies: Fever EENT: No symptoms reported Cardiovascular: No symptoms reported Respiratory: See HPI. denies: Cough Gastrointestinal: No symptoms reported Genitourinary: No symptoms reported Female Genitourinary: No symptoms reported Musculoskeletal: No symptoms reported Hematologic/Lymphatic: No symptoms reported Neurological/Psychological: See HPI, Seizure -: Yes All other systems reviewed and negative Physical Exam - Vital signs Vitals: Resp Pulse Ox 17 100 01/31/20 23:17 01/31/20 23:17 Interpretation: Normal - General General appearance: Other - Sleeping, nontoxic appearing In distress: None - HEENT Head: Normocephalic, Atraumatic Eyes: Normal Pupils: PERRL - Respiratory Respiratory status: No respiratory distress Chest status: Nontender Breath sounds: Normal Chest palpation: Normal - Cardiovascular Rhythm: Regular Heart sounds: Normal auscultation Murmur: No Friction rub: No Gallop: None auscultated - Abdominal Inspection: Normal Distension: No distension Bowel sounds: Normal Tenderness: Nontender - Abdomen soft Organomegaly: No organomegaly - Back Back: Normal, Nontender - Extremities General upper extremity: Normal inspection General lower extremity: Normal inspection - Neurological Neuro grossly intact: Yes Sensory: Normal - Psychological Associated symptoms: Normal affect, Normal mood - Skin Skin Temperature: Warm Skin Moisture: Dry Skin Color: Normal Course - Re-evaluation Re-evalutation: 02/01/20 02:27 Results of ED MSE discussed with patient's caregiver. All questions were answered prior to discharge. Emergency signs and symptoms, reasons to return to the emergency department discussed with patient's caregiver. - Vital Signs Vital signs: Temp Pulse Resp BP Pulse Ox 97.9 F 16 122/80 100 01/31/20 23:36 02/01/20 02:01 02/01/20 02:01 02/01/20 02:01 - Laboratory Result Diagrams: 02/01/20 00:53 02/01/20 00:53 Laboratory results interpreted by me: 02/01/20 00:53 Sodium 133.0 L Total Bilirubin 0.1 L - Diagnostic Test Radiology reviewed: Reports reviewed Discharge - Discharge Clinical Impression: Seizure disorder Condition: Good Disposition: HOME, SELF-CARE Additional Instructions: Return to the Emergency Department without delay if any worse. Follow-up with your regular primary care provider on 02/02/2020 HOME CARE INSTRUCTIONS & INFORMATION: Thank you for choosing us for your medical needs. We hope you're satisfied with the care you received. After you leave, you must properly care for your problem and, at the same time, observe its progress. Any condition can change. Some illnesses can change rapidly over hours or days. If your condition worsens, return to the Emergency Department or see your physician promptly. ABOUT YOUR X-RAYS AND EKG'S: If you had an EKG or X-rays taken, they have been read by the Emergency Physician. The X-rays and EKG's will also be read by a Radiologist or Critical Systems Technician within 24 hours. If discrepancies are noted, you will be notified by telephone. Please be certain the ED has a correct telephone number & address where you can be reached. Also, realize that some fractures or abnormalities do not show up on initial X-rays. If your symptoms continue, see your physician. ABOUT YOUR LABORATORY TEST: If you had laboratory tests, the results have been reviewed by the Emergency Physician. Some test results (for example cultures) may not be available for several days. You will be contacted if any test result shows you need additional treatment. Please be certain the ED has a correct telephone number and address where you can be reached. ABOUT YOUR MEDICATIONS: You will receive instructions on how to take your medicine on the prescription label you receive. Additional information may be provided by the Pharmacy. If you have questions afterwards, call the ED for clarification or further instructions. Some prescribed medications may cause drowsiness. Do not perform tasks such as driving a car or operating machinery without consulting your Pharmacist. If you feel you need a refill of pain medication, your condition will need re-evaluation. Please do not call for a refill of any medication. ABOUT YOUR SIGNATURE: Signature of this document acknowledges to followin. Understanding that you received emergency treatment and that you may be released before al medical problems are known or treated. Please be certain the ED has a correct phone number & address where you can be reached. 2. Acknowledgement that you will arrange for follow-up care as recommended. 3. Authorization for the Emergency Physician to provide information to your follow-up Physician in order to maximize your care. AT ANY TIME, IF YOUR SYMPTOMS CHANGE SIGNIFICANTLY OR WORSEN OR YOU DEVELOP NEW SYMPTOMS, RETURN TO THE EMERGENCY DEPARTMENT IMMEDIATELY FOR RE-EVALUATION. OUR GOAL IS TO PROVIDE EXCELLENT MEDICAL CARE! WE HOPE THAT WE HAVE MET YOUR EXPECTATIONS DURING YOUR EMERGENCY DEPARTMENT VISIT AND THAT YOU FEEL YOU HAVE RECEIVED EXCELLENT CARE! Seizure, Known Epileptic You have had a seizure. Seizures may "break through" in an epileptic due to stress of infection or injury, a change in blood chemistry, or drug and alcohol use. Another common cause is failure to take medication as prescribed. Your doctor has evaluated your situation for the likely cause of this seizure. It is important that you follow his advice concerning any medication changes and follow-up care. Further testing of anti-seizure medication levels in your blood may be necessary. If you have a spr[place] truck driver's license, it's important that you DO NOT DRIVE until given permission by your physician. This seizure must be reported to the spr[place] truck driver's license bureau. Call the doctor or return if seizures recur, or if new or unusual symptoms arise -- such as severe headache, confusion, excessive sleepiness, local weakness or numbness, neck stiffness, or fever. I personally performed the services described in the documentation, reviewed and edited the documentation which was dictated to the scribe in my presence, and it accurately records my words and actions.
[2020-02-01 01:12] LABS: ABSOLUTE LYMPHOCYTES (AUTO) 1.5 10^3/uL (0.5-4.7); ABSOLUTE MONOCYTES (AUTO) 0.6 10^3/uL (0.1-1.4); ABSOLUTE NEUT (AUTO) 7.4 10^3/uL (1.7-8.2); BASOPHILS % (AUTO) 0.3 % (0-2); EOSINOPHILS % (AUTO) 0.2 % (0-6); HEMATOCRIT 37.8 % (36.0-47.0); HEMOGLOBIN 13.3 g/dL (12.0-15.5); MEAN CORPUSCULAR HEMOGLOBIN 28.5 pg (27.0-33.4); MEAN CORPUSCULAR HGB CONC 35.1 g/dL (32.0-36.0); MEAN CORPUSCULAR VOLUME 81 fl (80-97); MONOCYTES % (AUTO) 6.4 % (3-13); PLATELET COUNT 240 10^3/uL (150-450); RED BLOOD COUNT 4.64 10^6/uL (3.72-5.28); SEGMENTED NEUTROPHILS % (AUTO) 77.1 % (42-78); TOTAL CELLS COUNTED % (AUTO) 100 %; WHITE BLOOD COUNT 9.6 10^3/uL (4.0-10.5)
--- NOTE | 2020-02-01 01:12 | RADIOLOGY REPORT (SQ) ---
CLINICAL INDICATION: seizure. TECHNIQUE: A single portable AP view was obtained of the chest at 0021 hours. COMPARISON: None available. FINDINGS: The cardiomediastinal silhouette is prominent. The lungs are grossly clear. No evidence of effusion or pneumothorax. The visualized bones are unremarkable. A catheter projects over the right neck and right chest etiology unclear. IMPRESSION: No evidence of active intrathoracic disease.
[2020-02-01 01:30] LABS: ALBUMIN 4.1 g/dL (3.5-5.0); ALKALINE PHOSPHATASE 57 U/L (38-126); ANION GAP 6 (5-19); ASPARTATE AMINO TRANSFERASE 21 U/L (14-36); BILIRUBIN,TOTAL 0.1 mg/dL (0.2-1.3); BLOOD UREA NITROGEN 9 mg/dL (7-20); CALCIUM 9.4 mg/dL (8.4-10.2); CARBON DIOXIDE 26 mmol/L (22-30); CHLORIDE 101 mmol/L (98-107); GLUCOSE 94 mg/dL (75-110); POTASSIUM 4.4 mmol/L (3.6-5.0); TOTAL PROTEIN 6.7 g/dL (6.3-8.2)
[2020-02-01 01:41] LABS: APPEARANCE,URINE CLOUDY; BILIRUBIN,URINE NEGATIVE (NEGATIVE); COLOR,URINE YELLOW; GLUCOSE, URINE NEGATIVE (NEGATIVE); KETONES,URINE NEGATIVE (NEGATIVE); PROTEIN,URINE NEGATIVE (NEGATIVE); URINE SPECIFIC GRAVITY 1.006; UROBILINOGEN,URINE NEGATIVE mg/dL (<2.0)
[2020-02-01 01:58] LABS: FREE T3 3.41 pg/mL (2.77-5.27); FREE T4 (FREE THYROXINE) 1.06 ng/dL (0.78-2.19)
[2020-02-01 02:04] VITALS: BP 122/80
[2020-02-01 02:12] LABS: THYROID STIMULATING HORMONE 1.94 uIU/mL (0.47-4.68)
--- NOTE | 2020-02-01 08:50 | EKG REPORT ---
SEVERITY:- NORMAL ECG - SINUS RHYTHM : Confirmed by: Ramesh Velasco MD 01-Feb-2020 08:49:51
== END 2020-02-01 02:56 | disposition home or self-care (01) ==
LOC: ER 23:09
DX: R56.9 Unspecified convulsions (principal); G80.9 Cerebral palsy, unspecified; E89.0 Postprocedural hypothyroidism; Z98.2 Presence of cerebrospinal fluid drainage device
CPT/HCPCS: 36415; 71045; 80053; 81001; 82962; 83735; 84439; 84443; 84481; 85025; 93005; 93010; 99284

== ENCOUNTER 2020-06-28 14:58 | Emergency (ER) | payer OTHER, MEDICAID ==
[2020-06-28 15:49] LABS: ABSOLUTE LYMPHOCYTES (AUTO) 1.3 10^3/uL (0.5-4.7); ABSOLUTE MONOCYTES (AUTO) 0.6 10^3/uL (0.1-1.4); ABSOLUTE NEUT (AUTO) 6.5 10^3/uL (1.7-8.2); BASOPHILS % (AUTO) 0.4 % (0-2); EOSINOPHILS % (AUTO) 0.3 % (0-6); HEMOGLOBIN 12.1 g/dL (12.0-15.5); LYMPHOCYTES % (AUTO) 15.5 % (13-45); MEAN CORPUSCULAR HEMOGLOBIN 27.7 pg (27.0-33.4); MEAN CORPUSCULAR HGB CONC 33.7 g/dL (32.0-36.0); MEAN CORPUSCULAR VOLUME 82 fl (80-97); MONOCYTES % (AUTO) 7.3 % (3-13); PLATELET COUNT 241 10^3/uL (150-450); RED BLOOD COUNT 4.37 10^6/uL (3.72-5.28); RED CELL DISTRIBUTION WIDTH 14.5 % (11.5-14.0); SEGMENTED NEUTROPHILS % (AUTO) 76.5 % (42-78); TOTAL CELLS COUNTED % (AUTO) 100 %; WHITE BLOOD COUNT 8.5 10^3/uL (4.0-10.5)
[2020-06-28 16:02] LABS: ALKALINE PHOSPHATASE 48 U/L (38-126); ANION GAP 8 (5-19); ASPARTATE AMINO TRANSFERASE 16 U/L (14-36); BILIRUBIN,TOTAL 0.3 mg/dL (0.2-1.3); BLOOD UREA NITROGEN 6 mg/dL (7-20); CALCIUM 8.6 mg/dL (8.4-10.2); CARBON DIOXIDE 21 mmol/L (22-30); CHLORIDE 99 mmol/L (98-107); GLUCOSE 94 mg/dL (75-110); POTASSIUM 3.9 mmol/L (3.6-5.0); TOTAL PROTEIN 6.7 g/dL (6.3-8.2)
[2020-06-28 16:12] LABS: ALCOHOL < 10 mg/dL (NONE DETECTED)
--- NOTE | 2020-06-28 16:23 | ER Document Report ---
ED General - General Stated Complaint: POSSIBLE SEIZURE Time Seen by Provider: 06/28/20 15:35 Notes: 24-year-old female brought to the emergency department via EMS for a tonic- clonic seizure. Patient has a history of tonic-clonic seizures every 5 to 8 weeks for the past several years. Mother states that the patient seizures usually last 20 to 25 minutes. States they always have to call EMS to receive Versed. Today they called after it lasted for 5 minutes, she received 2.5 mg IM which slowed it down and then she received another 2.5 mg IM and then it stopped after approximately 25 minutes. Mother states that this did follow her usual pattern and the only thing that is different is that she has some clear rhinorrhea today without any other symptoms and usually she can identify some form of excitement in the patient's life that causes her to seize. Mother states that nothing has changed recently, no change in medication or dosage and no exciting events have happened. Patient does have a [employer] shunt, she has had it since she was a young child. After awakening further, patient complains of a mild headache. Declines medications. TRAVEL OUTSIDE OF THE [place] IN LAST 30 DAYS: No - Related Data Allergies/Adverse Reactions: No Known Allergies Allergy (Verified 08/21/19 07:57) Past Medical History - General Information source: Patient - Social History Smoking Status: Never Smoker Frequency of alcohol use: None Drug Abuse: None Lives with: Parents Family History: Reviewed & Not Pertinent, Hypertension Neurological Medical History: Reports: Hx Seizures - 2006 shunt revision Endocrine Medical History: Reports: Hx Graves' Disease, Hx Hyperthyroidism Renal/ Medical History: Denies: Hx Peritoneal Dialysis GI Medical History: Reports: Hx Gastroesophageal Reflux Disease Musculoskeletal Medical History: Reports Hx Muscle Spasm Past Surgical History: Reports: Hx Abdominal Surgery - bowel resection, Hx Bowel Surgery - Bowel resection for necrotizing enterocolitis, Hx Neurologic Surgery - MOVERS shunt with 2 revisions, Hx Thyroid Surgery - Thyroidectomy in September 2019, Hx Vascular Surgery - AV shunt with revision in - Immunizations Immunizations up to date: Yes Hx Diphtheria, Pertussis, Tetanus Vaccination: Yes Review of Systems - Review of Systems Constitutional: No symptoms reported EENT: See HPI, Nose discharge Neurological/Psychological: See HPI, Seizure -: Yes All other systems reviewed and negative Physical Exam - Vital signs Vitals: Temp 98.6 F 06/28/20 15:15 Interpretation: Normal - Notes Notes: GENERAL: Laying in bed, sleeping, awakens to voice, moans. Initially will not answer questions but will follow commands. HEAD: Normocephalic, atraumatic EYES: Pupils equal, round and reactive to light, extraocular movements intact. ENT: Oral mucosa moist, tongue midline. No obvious rhinorrhea. NECK: Full range of motion, supple, trachea midline. LUNGS: Clear to auscultation bilaterally, no wheezes, rales or rhonchi, no respiratory distress. HEART: Regular rate and rhythm, no murmurs, gallops, rubs. ABDOMEN: Soft, nontender, nondistended, bowel sounds present in all 4 quadrants. EXTREMITIES: Moves all 4 extremities spontaneously, slightly weaker on the left- hand side than the right-hand side, this is baseline per mother, no edema, radial and dorsalis pedis pulses 2/4 bilaterally. No cyanosis. NEUROLOGICAL: Sleepy, initially cannot answer questions, after an hour of observation is oriented to person place and time, biceps and patellar DTRs 2+ bilaterally. SKIN: Warm, Dry, normal turgor, no rashes or lesions noted. Course - Re-evaluation Re-evalutation: 06/28/20 18:42 CBC unremarkable, CMP shows slight low sodium at 128.1 however this is not low enough to cause a seizure. test is negative, alcohol level undetectable. Patient is now wide-awake, at her neurologic baseline per mother, complains of very mild headache, offered Toradol but but refuses. Speech is normal, follows all commands appropriately. No indication for imaging on this patient with a seizure history who is had another 1 of her typical seizures. Given the fact that this patient is being seen during the coronavirus pandemic patient does have rhinorrhea and will be swab for coronavirus. No indication for admission. Discharged home. - Vital Signs Vital signs: Temp Pulse Resp BP Pulse Ox 98.6 F 14 109/84 99 06/28/20 15:15 06/28/20 17:30 06/28/20 17:30 06/28/20 17:30 - Laboratory Result Diagrams: 06/28/20 15:26 06/28/20 15:26 Laboratory results interpreted by me: 06/28/20 06/28/20 06/28/20 15:26 15: 17:43 RDW 14.5 H Sodium 128.1 L Carbon Dioxide 21 L BUN 6 L Urine Ketones TRACE H Ur Leukocyte Esterase MODERATE H Discharge - Discharge Clinical Impression: Seizure disorder, Seizure, Hyponatremia, Rhinorrhea Condition: Stable Disposition: HOME, SELF-CARE Additional Instructions: Today your blood work showed very slight low sodium otherwise it was normal. I did not see anything that requires acute treatment today. There is no reason to do a CAT scan of your head as you have normalized. Please use ibuprofen (Motrin or Advil) 600-800 mg every 8 hours as needed for pain. You may also use acetaminophen (Tylenol) 1000 mg every 4-6 hours as needed for pain. Please be aware that many medications contain acetaminophen, do not exceed a total of 1000 mg of acetaminophen every 6 hours. Please return if you develop a fever, confusion, another seizure within 24 hours or any new or concerning symptoms. We did check you for coronavirus. You will receive a phone call with these test results usually within the next 5 days.
[2020-06-28 18:17] LABS: AMORPHOUS SEDIMENT,URINE TRACE /HPF; APPEARANCE,URINE SLIGHTLY-CLOUDY; BILIRUBIN,URINE NEGATIVE (NEGATIVE); COLOR,URINE YELLOW; GLUCOSE, URINE NEGATIVE (NEGATIVE); KETONES,URINE TRACE mg/dL (NEGATIVE); LEUKOCYTE ESTERASE,URINE MODERATE (NEGATIVE); NITRITE,URINE NEGATIVE (NEGATIVE); PROTEIN,URINE NEGATIVE (NEGATIVE); URINE SPECIFIC GRAVITY 1.006; UROBILINOGEN,URINE NEGATIVE mg/dL (<2.0)
[2020-06-28 18:29] LABS: URINE AMPHETAMINES SCREEN NEGATIVE; URINE BARBITURATES SCREEN NEGATIVE; URINE COCAINE SCREEN NEGATIVE; URINE MARIJUANA (THC) SCREEN NEGATIVE; URINE METHADONE SCREEN NEGATIVE; URINE PHENCYCLIDINE SCREEN NEGATIVE
[2020-06-28 18:31] LABS: URINE BENZODIAZEPINES SCREEN UNCONFIRMED POSITIVE
[2020-06-28 19:00] VITALS: BP 108/71
== END 2020-06-28 19:00 | disposition home or self-care (01) ==
LOC: ER 14:58
DX: G40.909 Epilepsy, unspecified, not intractable, without status epilepticus (principal); E87.1 Hypo-osmolality and hyponatremia; J34.89 Other specified disorders of nose and nasal sinuses; R51 Headache; Z98.2 Presence of cerebrospinal fluid drainage device; Z20.828 Contact with and (suspected) exposure to other viral communicable diseases
CPT/HCPCS: 99283; 36415; 80307 ×2; 83735; 84703; 85025; 87635; 80053; 81001; C9803